=== PATIENT | male | born 1945 | race Caucasian/White ===

== ENCOUNTER 2021-09-21 11:55 | Emergency (ER) | payer OTHER, SELFPAY ==
[2021-09-21 12:03] VITALS: BP 152/90; PULSE 83; RESP 23; TEMP 37.3; O2SAT 99
[2021-09-21 12:54] VITALS: RESP 14
[2021-09-21 12:58] LABS: Abs Immature Grans 0.01 10^3/uL (0.0-0.06); Absolute Basophil Count 0.04 10^3/uL (0.0-0.2); Absolute Lymphocyte Count 1.12 10^3/uL (1.2-3.4); Absolute Monocyte Count 0.52 10^3/uL (0.1-0.8); Absolute Neutrophil Count 2.86 10^3/uL (1.2-6.7); Basophils % 0.9; HCT 21.2 % (40.0-50.0); Immature Grans % 0.2; Lymphocytes % 24.6; MCH 21.9 pg (27.0-33.0); MCHC 29.7 % (32.0-36.0); MCV 74 fL (80-95); MPV 10.1 fL (8.0-11.0); Monocytes % 11.4; Neutrophils % 62.9; Platelet Count 295 10^3/uL (130-400); RBC 2.88 10^6/uL (4.36-5.78); RDW 19.9 % (11.8-14.1); RDW-SD 52.7 fL; WBC 4.55 10^3/uL (4.4-10.8)
[2021-09-21 13:00] LABS: HGB 6.3 g/dL (13.5-17.5)
[2021-09-21 13:10] LABS: ALT 10 U/L (16-63); AST 11 U/L (15-37); Albumin 3.9 g/dL (3.4-5.0); Alkaline Phosphatase 72 U/L (46-116); Anion Gap 10.4 mmol/L (3-11); BUN 32 mg/dL (7-18); Bilirubin, Total 0.5 mg/dL (0.2-1.0); CO2 25.6 mmol/L (21.0-32.0); CREATININE 1.3 mg/dL (0.70-1.30); Calcium 9.2 mg/dL (8.5-10.1); Chloride 104 mmol/L (98-107); Estimated GFR 53.82 (mL/min/1.73m2); Glucose 101 mg/dL (74-106); Lipase 192 U/L (73-393); Potassium 4.1 mmol/L (3.5-5.1); Sodium 140 mmol/L (136-145); Total Protein 7.7 g/dL (6.4-8.2)
[2021-09-21 13:13] LABS: Anisocytosis 1+; Diff Comment RBC Morph Reviewed; Hypochromasia 1+; Microcytosis 1+
[2021-09-21 13:14] LABS: Polychromasia Present
--- NOTE | 2021-09-21 13:21 | W.ED.GENAD ---
Discharge Plan Disposition Patient Disposition: HOME Condition: Stable Discharge Details Clinical Impression: Anemia Primary Care Provider: Jj Pat ED Provider: Jose Alberto Pyle Home Meds and New Rx's Prescriptions: No Action ciprofloxacin HCl [Cipro] 250 MG tablet 250 mg PO BID Qty: 18 0RF Discharge Instructions Instructions: Anemia (ED) Additional Instructions: At this time it is unclear why you have anemia, you have been given a unit of blood, and we discussed admission but you have declined. Please watch for new or worsening symptoms and return to the ER for any concerns. [facility] care provider on Thursday to discuss your ER visit, ongoing symptoms, and need for further outpatient work-up of your ongoing symptoms. Discharge Data Discharge Date/Time-TO BE ENTERED AT DEPARTURE: 09/21/21 16:38 Medical Decision Making 76-year-old gentleman, currently asymptomatic, had a routine blood work for tick bite evaluation couple of days ago, received a call from the [facility] last night stating his levels were low and to come to the ER for evaluation and transfusion. Given he was asymptomatic they stated that after his transfusion he could likely be followed up at the [facility] and they will be reaching out to him early in the week for outpatient evaluation. Patient would prefer to be discharged home if at all possible. He is agreeable to IV access, pending routine laboratory values and verbal consent for transfusion was obtained assuming his H&H are truly critically low. Clinically he appears well, nontoxic, hemodynamically stable. He appears to be compensating extremely well for his anemia. He denies easy bruising or bleeding or any history of anemia. He cannot recall his last colonoscopy. Laboratory values reveal a white blood cell count of 4.55 hemoglobin 6.3 hematocrit 21.2 platelet count 295. Electrolytes are unremarkable, creatinine 1.3 with a GFR of 53.82 lipase 192 TSH 2.78 O+ blood type. I was able to review her labs from 2015, patient did have anemia then as well, but I have no other labs to compare to. Likely acute on chronic anemia. Patient received 1 L of IV fluid and then 1 unit of packed red blood cells. He remains asymptomatic and hemodynamically stable. We once again discussed admission to help expedite his work-up regarding his anemia but he declines. He assures me he will return to the ER for new or worsening symptoms otherwise he will [facility]. Strict discharge and return precautions were provided. Patient understands, is agreeable to this plan, and has no additional questions or concerns upon discharge. This documentation was generated using [employer] ricardo plcation system, please disregard any oddities of phrase or misspellings. Medical Records Medical records reviewed: Yes I reviewed the patient's medical records. Lab Data Lab results reviewed: Yes I reviewed the patient's lab results. Labs: Laboratory Tests Range/Units 09/21/21 09/21/21 09/21/21 12:50 12:50 12:50 WBC (4.4-10.8) 10^3/uL 4.55 RBC (4.36-5.78) 10^6/uL 2.88 L Hgb (13.5-17.5) g/dL 6.3 L* Hct (40.0-50.0) % 21.2 L MCV (80-95) fL 74 L MCH (27.0-33.0) pg 21.9 L MCHC (32.0-36.0) % 29.7 L RDW (11.8-14.1) % 19.9 H Plt Count (130-400) 10^3/uL 295 MPV (8.0-11.0) fL 10.1 Immature Gran % 0.2 Neutrophils % 62.9 Lymphocytes % 24.6 Monocytes % 11.4 Eosinophils % 0.0 Basophils % 0.9 Nucleated RBC % (0.0-0.3) % 0.0 Absolute Neutrophils (1.2-6.7) 10^3/uL 2.86 Absolute Lymphocytes (1.2-3.4) 10^3/uL 1.12 L Absolute Monocytes (0.1-0.8) 10^3/uL 0.52 Absolute Eosinophils (0.0-0.7) 10^3/uL 0.00 Absolute Basophils (0.0-0.2) 10^3/uL 0.04 RBC Morphology See Below Polychromasia Present Hypochromasia 1+ Anisocytosis 1+ Microcytosis 1+ Sodium (136-145) mmol/L 140 Potassium (3.5-5.1) mmol/L 4.1 Chloride (98-107) mmol/L 104 Carbon Dioxide (21.0-32.0) mmol/L 25.6 Anion Gap (3-11) mmol/L 10.4 BUN (7-18) mg/dL 32 H Creatinine (0.70-1.30) mg/dL 1.3 Estimated GFR/1.73 m2 (mL/min/1.73m2) 53.82 Glucose (74-106) mg/dL 101 Calcium (8.5-10.1) mg/dL 9.2 Total Bilirubin (0.2-1.0) mg/dL 0.5 AST (15-37) U/L 11 L ALT (16-63) U/L 10 L Alkaline Phosphatase (46-116) U/L 72 Total Protein (6.4-8.2) g/dL 7.7 Albumin (3.4-5.0) g/dL 3.9 Lipase (73-393) U/L 192 Patient ABO/Rh O Positive Antibody Screen NEGATIVE Crossmatch See Detail HPI General Mode of arrival: ambulatory. Date/Time Provider Initiated Documentation: 09/21/21 11:56. Limitations to Documentation: no limitations. Information obtained by: patient. HPI Narrative: This is a 76-year-old gentleman, denies significant past medical history presented to the [facility] the [facility]. Patient states that he has not seen a primary care provider in the last couple of years. He does not typically like taking medications and prefers a more organic and holistic approach. He states that he had a couple recent tick bites which [facility] to have labs drawn. He was given a single dose of p.o. doxycycline. Subsequently he was called last night, told that his blood count was low and to go to the ER for evaluation, transfusion, and then he can be followed as an outpatient through the [facility]. Patient is currently asymptomatic. He denies recent illness or trauma. He denies headache, visual changes, weakness, neck pain, chest pain, shortness of breath, abdominal pain, nausea, vomiting, numbness, tingling, weakness. Patient states that he occasionally throughout the years he has seen bright red blood on the tissue paper after wiping but does not report any regular GI bleeding or any recent GI bleeding. Denies any black tarry stools. No known history of anemia. Patient states that he feels well, would prefer to avoid an admission, and is very comfortable being discharged and having this worked up as an outpatient. He admits that he is likely due for a colonoscopy. Related Data Home Medications Medication Instructions Recorded Confirmed ciprofloxacin HCl 250 mg tablet 250 mg PO BID ##18 01/17/15 (Cipro) Previous Rx's Medication Instructions Recorded ciprofloxacin HCl 250 mg tablet 250 mg PO BID ##18 01/17/15 (Cipro) Allergies Allergy/AdvReac Type Severity Reaction Status Date / Time No Known Allergies Allergy Unverified 01/17/15 18:32 General Stated Complaint: GenMedical MISSY: 3 Review of Systems Constitutional Constitutional: Denies fatigue, Denies fever(s), Denies headache(s) and Denies weakness Eyes Eyes: Denies change in vision ENT Ears, Nose, Mouth, and Throat: Denies headache(s) and Denies neck pain Cardiovascular Cardiovascular: Denies chest pain and Denies dyspnea Respiratory Respiratory: Denies dyspnea Gastrointestinal Gastrointestinal: Denies abdominal pain, Denies melena, Denies hematochezia, Denies constipation, Denies diarrhea, Denies nausea and Denies vomiting Musculoskeletal Musculoskeletal: Denies back pain, Denies neck pain, Denies numbness and Denies tingling Integumentary/Breasts Skin/Breast: Denies rash Neurologic Neurologic: Denies headache(s), Denies numbness, Denies tingling and Denies weakness Endocrine Endocrine: Denies fatigue Hematologic/Lymphatic Hematologic/Lymphatic: Denies easy bleeding and Denies easy bruising PFSH All Active Problems Anemia (Chronic) Social History Smoking/Tobacco Use Status: Never Smoking risk assessment performed?: Yes Drug use: Never Substance use type: does not use Exam Const General: cooperative, healthy appearing, comfortable and no acute distress Orientation: alert, awake and oriented x3 HENMT Head: normal to inspection, normocephalic and atraumatic Face and sinus: normal facial exam Mouth: moist mucous membranes Eyes General: appearance normal, both eyes and all related structures Conjunctivae: conjunctivae normal Neck Neck: normal visual inspection, full ROM, trachea midline, supple and nontender Resp Effort & Inspection: normal respiratory effort and able to speak in complete sentences Auscultation: clear to auscultation bilaterally Cardio Rate: regular rate Rhythm: regular rhythm GI Inspection: normal to inspection Palpation: soft, not firm, no guarding, no pulsatile masses and nontender Auscultation: normal bowel sounds Rectal Exam: visual inspection normal, normal sphincter tone and heme negative stool Back/Spine/Pelvis Back: No back tenderness Skin Rashes: no rashes Neuro General: patient alert, patient awake, patient oriented x3, moves all extremities and no focal motor deficits Cognition: normal cognition Speech: speech normal Gait: normal gait Motor: muscle tone normal throughout Sensory Exam: no sensory deficits noted Extrem General: normal to inspection, full ROM and capillary refill normal Psych Appearance: grossly normal Mental Status: mental status grossly normal Course Vital Signs Vital signs: Vital Signs Temperature 37.3 C 09/21/21 12:03 Pulse 83 09/21/21 12:03 Respiratory Rate 23 09/21/21 12:03 Blood Pressure 152/90 H 09/21/21 12:03 Pulse Oximetry 99 09/21/21 12:03 Temperature 37.3 C 09/21/21 12:03 Temperature Source Temporal Artery Scan 09/21/21 12:03 Pulse 83 09/21/21 12:03 Respiratory Rate 14 09/21/21 12:54 Respiratory Effort 09/21/21 12:54 Respiratory Depth Normal 09/21/21 12:54 Respiratory Pattern Normal 09/21/21 12:54 Blood Pressure 152/90 H 09/21/21 12:03 Blood Pressure Position Supine 09/21/21 12:03 Pulse Oximetry 99 09/21/21 12:03 Oxygen Delivery Method Room Air 09/21/21 12:03 Oxygen Flow Rate 0 09/21/21 12:03 Pain Level 0 09/21/21 12:03 Lab/Test Results Lab/Test Results: Laboratory Tests Range/Units 09/21/21 09/21/21 09/21/21 12:50 12:50 12:50 WBC (4.4-10.8) 10^3/uL 4.55 RBC (4.36-5.78) 10^6/uL 2.88 L Hgb (13.5-17.5) g/dL 6.3 L* Hct (40.0-50.0) % 21.2 L MCV (80-95) fL 74 L MCH (27.0-33.0) pg 21.9 L MCHC (32.0-36.0) % 29.7 L RDW (11.8-14.1) % 19.9 H Plt Count (130-400) 10^3/uL 295 MPV (8.0-11.0) fL 10.1 Immature Gran % 0.2 Neutrophils % 62.9 Lymphocytes % 24.6 Monocytes % 11.4 Eosinophils % 0.0 Basophils % 0.9 Nucleated RBC % (0.0-0.3) % 0.0 Absolute Neutrophils (1.2-6.7) 10^3/uL 2.86 Absolute Lymphocytes (1.2-3.4) 10^3/uL 1.12 L Absolute Monocytes (0.1-0.8) 10^3/uL 0.52 Absolute Eosinophils (0.0-0.7) 10^3/uL 0.00 Absolute Basophils (0.0-0.2) 10^3/uL 0.04 RBC Morphology See Below Polychromasia Present Hypochromasia 1+ Anisocytosis 1+ Microcytosis 1+ Sodium (136-145) mmol/L 140 Potassium (3.5-5.1) mmol/L 4.1 Chloride (98-107) mmol/L 104 Carbon Dioxide (21.0-32.0) mmol/L 25.6 Anion Gap (3-11) mmol/L 10.4 BUN (7-18) mg/dL 32 H Creatinine (0.70-1.30) mg/dL 1.3 Estimated GFR/1.73 m2 (mL/min/1.73m2) 53.82 Glucose (74-106) mg/dL 101 Calcium (8.5-10.1) mg/dL 9.2 Total Bilirubin (0.2-1.0) mg/dL 0.5 AST (15-37) U/L 11 L ALT (16-63) U/L 10 L Alkaline Phosphatase (46-116) U/L 72 Total Protein (6.4-8.2) g/dL 7.7 Albumin (3.4-5.0) g/dL 3.9 Lipase (73-393) U/L 192 Patient ABO/Rh O Positive Crossmatch See Detail
[2021-09-21 14:44] VITALS: PULSE 67; RESP 15; TEMP 36.9; O2SAT 98
[2021-09-21 14:48] VITALS: BP 116/69; PULSE 67; RESP 16; TEMP 37; O2SAT 98
[2021-09-21 14:59] VITALS: BP 136/72; PULSE 65; RESP 14; TEMP 37; O2SAT 99
[2021-09-21 15:29] VITALS: BP 129/67; PULSE 63; RESP 14; TEMP 37; O2SAT 99
== END 2021-09-21 16:38 | disposition home or self-care (01) ==
PROVIDERS: Emergency Provider Physician Assistant; PCP Internal Medicine
DX: D64.9 Anemia, unspecified (principal)
CPT/HCPCS: 36415; 36430; 80053; 83690; 86850; 86900; 86901; 86920; 99283; 99285; 85025; 99284; P9016

== ENCOUNTER → 2021-10-16 00:16 | Outpatient (CLI) | payer OTHER, SELFPAY ==
--- NOTE | 2021-10-16 15:55 | DI.US_ITS ---
APPROVED REPORT EXAM: Comprehensive 2D, Doppler, and color-flow Echocardiogram Patient Location: Out-Patient Bodywork Therapist: Virginia Zarate RDCS ([facility]) Indications: Pre op clearance, HTN Other Information Study Quality: Adequate Conclusion Normal left ventricular wall thickness and chamber size. Estimated ejection fraction is 55 to 60%. 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 3.76 cm Wall motion Left Ventricle The left ventricle is normal size. The left ventricular systolic function is normal. The left ventric ular ejection fraction is within the normal range. There is normal left ventricular wall thickness. T here is normal LV segmental wall motion. There is no ventricular septal defect visualized. LVEF is 55 -60%. Right Ventricle The right ventricle is normal size. The right ventricular systolic function is normal. Atria The left atrium size is normal. The right atrium size is normal. The interatrial septum is intact wit h no evidence for an atrial septal defect. Aortic Valve The aortic valve is normal in structure. Aortic valve is trileaflet. There is no aortic valvular sten osis. Mild aortic regurgitation. Mitral Valve The mitral valve is normal in structure. No evidence of mitral valve stenosis. Trace mitral regurgita tion. Tricuspid Valve The tricuspid valve is normal in structure. There is no tricuspid valve stenosis. Trace to mild tricu spid regurgitation. Unable to assess PA pressure. Pulmonic Valve The pulmonary valve is normal in structure. There is no pulmonic valvular stenosis. Trace pulmonic re gurgitation. Great Vessels The aortic root is normal in size. The ascending aorta is mildly dilated.3.76 cm Aortic arch is not w ell visualized. IVC is normal in size and collapses >50% with inspiration. Pericardium There is no pericardial effusion. 2D Dimensions IVSD d PLAX 1.13 cm M: 0.6-1.2 LV Vol A2C d MOD 104.1 mL LVPW d PLAX 1.13 cm M: 0.6 - 1.2 LV Vol A4C d MOD 112.5 mL LVID d PLAX 5.15 cm M: 4.2 - 5.8 LA vol/ BSA A2C s A-L 36.8 mL/m2 LVDs 3.70 cm M: 2.5 - 4.0 LA vol/ BSA A4C s A-L 20.0 mL/m2 Ao Root d 3.78 cm M: 3.1 - 3.7 LA Vol/ BSA Biplane s A-L 31.0 mL/m2 RA Area A4C 13.71 cm2 LA Area A4C s MOD 13.99 cm2 RA Vol/ BSA A4C s A-L 17.7 mL/m2 LA Area A2C s MOD 21.72 cm2 Ao Asc Diam d 3.76 cm M: 2.6 - 3.4 LV EF A4C MOD 54.1 % LV EF Teichholz 53.9 % LV EF A2C MOD 55.5 % LVEF (Palmer's) 53.74 % M: 52 - 72 LV EF Biplane MOD 53.7 % LV Volume 83.04 mL M: 62 - 150 SV 59.01 mL LV Volume Index 42.58 mL/m2 M: 34 - 74 SV Index 30.24 mL/m2 LV Vol Biplane MOD 109.8 mL FS 28.00 % M-Mode TAPSE 2.05 cm (M/F) >1.7 LV Diastology MV E' medial 0.092 (>0.07 m/s) E/A Ratio 0.8 LV E/e MED 6.90 (<14) MV E Vmax 0.63 (0.4-1.3 m/s) MV E' lateral 0.123 (>0.1 m/s) MV A Vmax 0.80 (0.4-1.3 m/s) LV E/e LAT 5.10 (<14) MV E/A Ratio 0.75 MV E/E' medial 6.92 MV E/E' lateral 5.14 Aortic Valve LVOT Area 3.65 cm2 AoV Area Vmax 2.89 cm2 LVOT Vmax 1.01 m/s AoV Area/ BSA (Vmax) 1.48 cm2/m2 LVOT Mean Nitin. 0.66 m/s SD Mean Nitin. 2.72 cm2 LVOT Peak Grad 4.1 mmHg SD Mean Nitin. Index 1.40 cm2/m2 LVOT Mean Grad 2.0 mmHg AR DT 1495 msec LVOT VTI 0.207 m AR PHT 434 msec LVOT Diam s 2.15 cm AoV Vmax 1.28 m/s Velocity Ratio 0.78 AoV Mean Nitin. 0.88 m/s AoV Peak Grad 6.5 mmHg LVOT SV 75.48 mL AoV Mean Grad 3.5 mmHg AoV VTI 0.248 m AoV Area VTI 3.04 cm2 AoV Area/ BSA (VTI) 1.56 cm/m2 Mitral Valve MV DT 318 (160-240 msec) MV PHT 92 msec MV Area PHT 2.39 cm2 MV VTI 0.284 m MV Area VTI 2.66 (4.0-6.0 cm2) Pulmonary Valve PV Vmax 1.25 (0.5-1.5 m/s) RVOT Peak Gr. 3.82 mmHg PV Peak Grad 6.2 mmHg RVOT Mean Gr. 1.55 mmHg PV Mean Grad 3.5 mmHg RVOT VTI 0.176 m PV VTI 0.254 m RVOT Vmax 0.98 m/s
== END ==
PROVIDERS: PCP Internal Medicine; Visit Provider Physical Therapy Assistant
DX: D64.9 Anemia, unspecified (principal); I10 Essential (primary) hypertension
CPT/HCPCS: 93306

== ENCOUNTER 2021-10-21 03:31 | Outpatient (CLI) | payer OTHER, SELFPAY ==
[2021-10-21 20:46] LABS: Source Nasal/Nares
[2021-10-22 06:07] LABS: COVID-19 PCR Negative (Negative)
== END 2021-10-21 03:32 | disposition home or self-care (01) ==
LOC: LBO 03:32 → LBN 20:17
PROVIDERS: PCP Internal Medicine; Visit Provider Surgery
DX: Z20.822 Contact with and (suspected) exposure to COVID-19 (principal); Z01.818 Encounter for other preprocedural examination
CPT/HCPCS: 87635

== ENCOUNTER 2021-10-24 10:11 | Day surgery (SDC) | payer OTHER, SELFPAY ==
[2021-10-24 10:31] VITALS: BP 119/70; PULSE 73; RESP 16; TEMP 36.7; O2SAT 99
[2021-10-24] MEDS: Lactated Ringers 1,000 ML 80 ML IV (11:09)
--- NOTE | 2021-10-24 11:18 | W.ANESPRE ---
General Info Date of Service Date Performed: 10/24/21 Height: 5 ft 9 in Weight: 76.1 kg Body Mass Index (BMI): 24.7 Surgical Procedure: Operation Date: 10/24/21 11:20 Proposed Procedure Side Surgeon p Colonoscopy/Gastroscopy Oleksandr Rivers MD Meds Allergies and Home Medications Allergies Allergy/AdvReac Type Severity Reaction Status Date / Time amlodipine Allergy Unknown UNKNOWN Verified 10/24/21 10:30 sulfamethoxazole Allergy Unknown UNKNOWN Verified 10/24/21 10:30 [From Sulfamethoxazole-Trimethoprim] trimethoprim Allergy Unknown Verified 10/24/21 10:30 [From Sulfamethoxazole-Trimethoprim] Home Medication Medication Instructions Recorded Unknown [No Known Home Meds] 09/30/21 Current Visit Medications: Current Medications Generic Name Dose Route Start Last Admin Trade Name Freq PRN Reason Stop Dose Admin Ringer's Solution 1,000 mls @ 80 mls/hr 10/24/21 06:00 10/24/21 11:09 IV 11/22/21 23:59 80 mls/hr INFUSION SANGEETHA Administration IV Miscellaneous Supplies 1 each 10/24/21 06:00 Iv Access IV 11/22/21 23:59 DIRECTED SANGEETHA Sodium Chloride 0 ml 10/24/21 06:00 Normal Saline Flush 10 Ml Syr IV 11/22/21 23:59 PRN PRN Sodium Chloride 0 ml 10/24/21 06:00 Normal Saline 10 Ml Vial IJ 11/22/21 23:59 DIRECTED PRN Sterile Water 0 ml 10/24/21 06:00 Water,Injection,Sterile 10 Ml Vial IJ 11/22/21 23:59 DIRECTED PRN PFSH Active Problems Active Problems: Problem Status Onset Code Essential hypertension I10 Rectal/anal hemorrhage K62.5 Skin lesion L98.9 Medical History Medical History Elevated PSA Hyperlipidemia Osteoarthritis, hip, bilateral Problem related to housing and economic circumstances Seborrheic dermatitis Septic arthritis Urinary retention Surgical History Surgical History Unilateral inguinal hernia with mesh per pt. Tobacco Smoking/Tobacco Use Status: Never Alcohol Alcohol Intake: current Alcohol intake frequency: a few times a month Alcohol type: wine Substance Use Substance use: Never Substance use type: does not use Vital Signs and Lab Results Vital Signs Most Recent Vital Signs in EMR: Most Recent Vital Signs Temp Pulse Resp BP Pulse Ox 36.7 C 73 16 119/70 99 10/24/21 10:31 10/24/21 10:31 10/24/21 10:31 10/24/21 10:31 10/24/21 10:31 Lab Results Blood Type / Crossmatch: No Data to Display Complete Blood Count: No Data to Display Complete Metabolic Panel: No Data to Display Liver Function Panel: No Data to Display Coagulation Panel: No Data to Display Cardiac Panel: No Data to Display Arterial Blood Gas: No Data to Display Venous Blood Gas: No Data to Display Pancreas Panel: No Data to Display Thyroid Panel: No Data to Display Infectious Disease: Coronavirus (COVID-19)(PCR) Negative (Negative) 10/21/21 15:00 Coronavirus 2019 Source Nasal/Nares 10/21/21 15:00 Blood Cultures: No Data to Display Toxicology Panel: No Data to Display Imaging and Studies Imaging and Studies Study information below may be from another EMR and interpreted by another provider. Please see original notes in EMR for more complete details. Echocardiogram Summary: Date of Exam: 10/16/21Sex: M Admission Date: 10/16/21 : 1945 Age: 76 APPROVED REPORT EXAM: Comprehensive 2D, Doppler, and color-flow Echocardiogram Patient Location: Out-Patient Flatwork Catcher: Virginia Zarate RDCS ([facility]) Indications: Pre op clearance, HTN Other Information Study Quality: Adequate Conclusion Normal left ventricular wall thickness and chamber size. Estimated ejection fraction is 55 to 60%. 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 3.76 cm Anesthesia Assessment and Plan Anesthesia History Personal History: No History of Anesthesia Complications Family History: No Family History of Anesthesia Complications Exercise Tolerance Exercise Tolerance: Metabolic Equivalents>4 Pertinent Negatives Pertinent Negatives: No Symptoms of GERD Cardiac & Pulmonary Exam Cardiac Exam: Normal S1/S2 Heart Sounds Pulmonary Exam: Clear Bilateral Breath Sounds Implantable Cardiac Device Does patient have a Pacemaker or an ICD?: No Airway Exam Known Difficult Airway: No Mallampati Class: 1 Mouth Opening: Normal (> 3cm) Thyromental Distance: Greater than 3 cm Neck Range of Motion: Full ROM Neck Circumference: Normal Teeth Condition: Normal Dentition ASA Classification ASA Score: ASA 2 Emergency Case?: No NPO Status NPO Status: NPO Clears >2 hours, Solids >8 hours Anesthesia Plan Resuscitation Status: Full Code Anesthesia Technique: General Anesthesia Airway Planned: Natural Airway Monitors Used: Standard Monitors
[2021-10-24 11:22] VITALS: BMI 24.7
--- NOTE | 2021-10-24 11:45 | STOM_PTH ---
PATIENT: Thong Cerna LOC: [facility] U#:[id number] AGE/SX: 76/M ROOM: RE10/24/[address]: Oleksandr Rivers MD : 1945 BED: DIS: 10/24/2021 SPEC #: [id number] RECD: 10/24/21 13:06 STATUS: YENI RE #: [id number] GIDEON: 10/24/21 11:[address]: Oleksandr Rivers DEPT: Surgical Specimen RECD BY: Marleny Lux ENTERED: 10/24/21 13:07 SP TYPE: STOMACH OTHR DR: ALEX DÍAZ Tissues: 1 - STOMACH BIOPSY Procedures: GROSS AND MICRO LEVEL 4 Comments: [id number]
[2021-10-24 12:30] VITALS: BP 123/79; PULSE 64; RESP 97; TEMP 36.6; O2SAT 97
--- NOTE | 2021-10-24 12:35 | W.ANESPOSTOP ---
Postoperative Evaluation Date, Time and Location Date Performed: 10/24/21 Time Performed: 12:35 Patient Location: Day Surgery Unit Vital Signs Most Recent Imported Vital Signs: Most Recent Vital Signs Temp Pulse Resp BP Pulse Ox 36.6 C 64 97 H 123/79 97 10/24/21 12:30 10/24/21 12:30 10/24/21 12:30 10/24/21 12:30 10/24/21 12:30 Pain Score Most Recent Pain Score: Most Recent Pain Score Pain Level 0 10/24/21 12:30 Assessment Mental Status: Arousable with meaningful communication Airway and Respiratory Function: Patent airway with normal (patient baseline) respiratory exam Cardiovascular Function: Hemodynamically Stable Hydration Status: Adequately Hydrated Nausea & Vomiting: No Nausea or Vomiting Pain: Pt. Denies Any Pain Peripheral Nerve Block: Patient did not receive a nerve block
--- NOTE | 2021-10-24 12:51 | PDOC.DSDIS_ITS ---
Discharge Plan Disposition Patient Disposition: HOME Condition: Good Discharge Details Reason For Visit: anemia Attending Provider: Oleksandr Rivers Primary Care Provider: ALEX DÍAZ Home Meds and New Rx's Prescriptions: No Action No Known Home Meds Discharge Instructions Instructions: Diverticulosis (GEN), Diverticulitis Diet (GEN), Colonoscopy (DC), Upper Endoscopy (DC) Additional Instructions: 1. If tolerated, consume a soft, low fiber diet for 1-2 days. [address] not drive, drink alcohol, operate machinery, make critical decisions, or do activities that require coordination or balance for 24 hours. 3. Because air was put into your colon during the procedure, expelling air from your rectum (passing gas or farting) is normal. 4. You may not have a bowel movement for 1-3 days because of the colonoscopy prep. This is normal. 5. You may experience a sore throat for 24 to 48 hours. You may use throat lozenges or gargle with warm salt water to relieve the discomfort. 6. Because air was put into your stomach during the procedure, you may experience some belching. 7. Go directly to the emergency room if you notice any of the following: Develop chills (warm to touch), or if you have a thermometer and your temperature is above 101 Difficulty breathing or difficultly swallowing Persistent vomiting Severe abdominal pain, other than gas cramps Severe chest pain Black, tarry stools Any bleeding ? exceeding one tablespoon 8. Call your physician if the site where your intravenous was started becomes red, swollen, painful, and warm to touch. 9. Your physician has reviewed your pre-procedure medications. Please continue to take those medications as previously ordered. You will be given specific information/education regarding any changes to your medications before leaving. 10. My office will notify you of biopsy results, and you should schedule an appointment with a primary care doctor Referrals: Oleksandr Rivers MD [ [facility] STAFF PHYSICIAN] - Activity:: Activity as Tolerated Diet:: As Tolerated Discharge Orders Discharge Orders: Discharge Order (Routine); Ordered 10/24/21 Ordered By: Oleksandr Rivers DS: Diagnosis Discharge Diagnosis (1) Gastric polyp: Status: Acute Asessment and Plan: follow up biopsy results
--- NOTE | 2021-10-24 12:53 | NUR.NOTE ---
Left shoulder dressing changed. Raised foul smelling cauliflower tumor with small amount of active bleeding after being cleansed with saline soaked gauze. 4X4 Mepilex border dressing placed. Encouraged to follow up with PMD or surgeon. Nursing Note:
--- NOTE | 2021-10-24 12:54 | COLE_ITS ---
Colonoscopy Report Date of procedure: 10/24/21 Pre-op diagnosis general: anemia Post-op diagnosis procedure note: other (diverticulosis, internal hemorrhoids, gastric polyp) Procedure: Esophagogastroduodenoscopy and colonoscopy Surgeon: Oleksandr Rivers Anesthesia Type: General:No Airway Estimated blood loss (mL): 10 Pathology: other (Gastric polyp) Complications: None Disposition: same day Indications: Thong is a 76-year-old male with symptomatic anemia of unknown etiology. He was referred from the MD for consideration of colonoscopy and EGD to help delineate the source of his blood loss. He provided informed consent for those procedures. Prep: Miralax/Dulcolax Procedure Start Time: 11:40 Procedure End Time: 12:25 Retraction Time: 23 Findings: Gastric polyp, diverticulosis, internal hemorrhoids. Procedure Description: After the initiation of monitored anesthetic care, and with the assistance of a bite block, I advanced a standard gastroscope through the mouth past the hypopharynx and into the esophagus.? Under the direct vision of the scope, I advanced down the esophagus into the stomach.? Once I entered the stomach, I performed a brief inspection, followed by retroflexion towards the gastric cardia.? There were a number of diminutive gastric polyps. There was one prominent gastric polyp that was approximately 1 cm. This was around the body of the stomach. I was able to biopsy it in its entirety.? After that, I gently advanced the scope around the incisura angularis and examined the pylorus.? This also appeared normal.? Next, I advanced the scope through the pylorus into the duodenum.? The mucosa was pink and healthy appearing.? There were no abnor malities.? I was able to visualize bile draining into the duodenum through the ampulla Vater. ?Next, I began retracting the endoscope.? Again, I returned to the stomach which was carefully examined.? I then gently desufflated some of the stomach, and withdrew the endoscope into the distal esophagus. The esophagus appeared normal. ?Finally, I withdrew the scope along the length of the esophagus taking great care to examine the entirety of the mucosa.? I did not appreciate any other abnormalities. We then repositioned Thong into the left lateral decubitus position, and I began by performing an external anorectal exam.? Perineum and skin were normal, as was the anal verge.? There were internal and external hemorrhoids. Next, I advanced a colonoscope into the rectal vault.? I performed retroflexion.? I did see signs of pathologic internal hemorrhoids. They appeared inflamed.? Using insufflation, I then advanced the colonoscope beyond the rectal folds and into the sigmoid colon before advancing towards the cecum.? The quality of the prep was adequate.? The scope was noted to be in the cecum by identification of the ileocecal valve and appendiceal orifice.? I then began withdrawing the colonoscope using repeated irrigation as necessary for full evaluation of the colonic mucosa. ?There were a number of sigmoid diverticula. Once the scope was withdrawn to the level of the rectum, great care was taken to examine portions of the rectal folds.? Finally, the scope was withdrawn and the patient was brought to the same-day surgery recovery unit as the anesthetic wore off. ?The findings and instructions were shared with the patient prior to discharge.
[2021-10-24 12:57] VITALS: BP 129/79; PULSE 64; RESP 16; TEMP 36.5; O2SAT 97
== END 2021-10-24 15:24 | disposition home or self-care (01) ==
PROVIDERS: PCP Internal Medicine; Visit Provider Surgery
PROC: (CPT 43239; principal; 2021-10-24 11:15)
DX: D64.9 Anemia, unspecified (principal); K31.7 Polyp of stomach and duodenum; K57.30 Diverticulosis of large intestine without perforation or abscess without bleeding; K64.4 Residual hemorrhoidal skin tags; K64.8 Other hemorrhoids; E78.5 Hyperlipidemia, unspecified; R97.20 Elevated prostate specific antigen [PSA]; K40.90 Unilateral inguinal hernia, without obstruction or gangrene, not specified as recurrent
CPT/HCPCS: 43239; 45378; 88305

== ENCOUNTER 2021-11-22 06:14 | Day surgery (SDC) | payer OTHER, SELFPAY ==
[2021-11-20 10:23] LABS: Source Nasal/Nares
[2021-11-20 12:22] LABS: COVID-19 PCR Negative (Negative)
--- NOTE | 2021-11-22 06:19 | W.ANESPRE ---
General Info Date of Service Date Performed: 11/22/21 Height: 5 ft 9 in Weight: 73.936 kg Body Mass Index (BMI): 24.0 Surgical Procedure: Operation Date: 11/22/21 07:40 Proposed Procedure Side Surgeon p Excision of Skin Lesion Shoulder Left Oleksandr Rivers MD Meds Allergies and Home Medications Allergies Allergy/AdvReac Type Severity Reaction Status Date / Time amlodipine Allergy Unknown UNKNOWN Verified 11/22/21 06:23 sulfamethoxazole Allergy Unknown UNKNOWN Verified 11/22/21 06:23 [From Sulfamethoxazole-Trimethoprim] trimethoprim Allergy Unknown Verified 11/22/21 06:23 [From Sulfamethoxazole-Trimethoprim] Home Medication Medication Instructions Recorded cyanocobalamin (vitamin B-12) 1,000 mcg PO DAILY 11/07/21 1,000 mcg capsule ferrous sulfate 325 mg (65 mg 325 mg PO DAILY 11/07/21 iron) tablet oxycodone 5 mg tablet 5 mg PO Q12H PRN pain #6 tabs 11/22/21 Current Visit Medications: Current Medications Generic Name Dose Route Start Last Admin Trade Name Freq PRN Reason Stop Dose Admin Acetaminophen 1,000 mg 11/22/21 06:00 Acetaminophen 500 Mg Tab PO 12/21/21 23:59 PREOP SANGEETHA Celecoxib 200 mg 11/22/21 06:00 Celecoxib 200 Mg Cap PO 12/21/21 23:59 PREOP SANGEETHA Gabapentin 300 mg 11/22/21 06:00 Gabapentin 300 Mg Cap PO 12/21/21 23:59 PREOP SANGEETHA Ringer's Solution 1,000 mls @ 80 mls/hr 11/22/21 06:00 IV 12/21/21 23:59 INFUSION FOR[facility] Cefazolin Sodium/Dextrose 2 gm in 50 mls @ 100 mls/hr 11/22/21 06:00 Ancef Duplex IVPB 12/21/21 23:59 PREOP [facility] IV Miscellaneous Supplies 1 each 11/22/21 06:00 Iv Access IV 12/21/21 23:59 DIRECTED SANGEETHA Sodium Chloride 0 ml 11/22/21 06:00 Normal Saline Flush 10 Ml Syr IV 12/21/21 23:59 PRN PRN Sodium Chloride 0 ml 11/22/21 06:00 Normal Saline 10 Ml Vial IJ 12/21/21 23:59 DIRECTED PRN Sterile Water 0 ml 11/22/21 06:00 Water,Injection,Sterile 10 Ml Vial IJ 12/21/21 23:59 DIRECTED PRN PFSH Active Problems Active Problems: Problem Status Onset Code Bacteremia R78.81 Mass of left upper extremity R22.32 Normal colonoscopy Gastric polyp K31.7 Essential hypertension I10 Rectal/anal hemorrhage K62.5 Skin lesion L98.9 Medical History Medical History DVT (deep venous thrombosis) Elevated PSA Hyperlipidemia Hypertension Osteoarthritis, hip, bilateral Problem related to housing and economic circumstances Seborrheic dermatitis Septic arthritis Urinary retention Surgical History Surgical History History of colonoscopy (~09/2021) History of esophagogastroduodenoscopy (EGD) (~09/2021) Unilateral inguinal hernia with mesh per pt. Tobacco Smoking/Tobacco Use Status: Never Alcohol Alcohol Intake: current Alcohol intake frequency: a few times a month Alcohol type: wine Substance Use Substance use: Never Substance use type: does not use Vital Signs and Lab Results Lab Results Result Diagrams: 11/22/21 06:42 Blood Type / Crossmatch: No Data to Display Complete Blood Count: Hemoglobin 11.0 g/dL (13.5-17.5) L 11/22/21 06:42 Hematocrit 33.6 % (40.0-50.0) L 11/22/21 06:42 Complete Metabolic Panel: No Data to Display Liver Function Panel: No Data to Display Coagulation Panel: No Data to Display Cardiac Panel: No Data to Display Arterial Blood Gas: No Data to Display Venous Blood Gas: No Data to Display Pancreas Panel: No Data to Display Thyroid Panel: No Data to Display Infectious Disease: Coronavirus (COVID-19)(PCR) Negative (Negative) 11/20/21 10:00 Coronavirus 2019 Source Nasal/Nares 11/20/21 10:00 Blood Cultures: No Data to Display Toxicology Panel: No Data to Display Imaging and Studies Imaging and Studies Study information below may be from another EMR and interpreted by another provider. Please see original notes in EMR for more complete details. Echocardiogram Summary: 10/16/21: Conclusion Normal left ventricular wall thickness and chamber size. Estimated ejection fraction is 55 to 60%. 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 3.76 cm Anesthesia Assessment and Plan Anesthesia History Personal History: No History of Anesthesia Complications Family History: No Family History of Anesthesia Complications Exercise Tolerance Exercise Tolerance: Metabolic Equivalents>4 Cardiac & Pulmonary Exam Cardiac Exam: Normal S1/S2 Heart Sounds Pulmonary Exam: Clear Bilateral Breath Sounds Implantable Cardiac Device Does patient have a Pacemaker or an ICD?: No Airway Exam Known Difficult Airway: No Mallampati Class: 1 Mouth Opening: Normal (> 3cm) Thyromental Distance: Greater than 3 cm Neck Range of Motion: Full ROM Neck Circumference: Normal Teeth Condition: Normal Dentition ASA Classification ASA Score: ASA 2 Emergency Case?: No NPO Status NPO Status: NPO Clears >2 hours, Solids >8 hours Anesthesia Plan Resuscitation Status: Full Code Anesthesia Technique: General Anesthesia Airway Planned: Natural Airway Monitors Used: Standard Monitors Preoperative Comments:: 76 yo male for removal of shoulder lesion. Sig PMHx: HTN, ? DVT, never smoker, occ EtOH.
[2021-11-22 06:26] VITALS: BP 125/65; PULSE 64; RESP 16; TEMP 36.4; O2SAT 100
[2021-11-22] MEDS: Celecoxib 200 MG CAP PO (06:48)
[2021-11-22] MEDS: Gabapentin 300 MG CAP PO (06:48)
[2021-11-22] MEDS: Acetaminophen 500 MG TAB 1000 MG PO (06:48)
[2021-11-22 06:49] LABS: HCT 33.6 % (40.0-50.0)
[2021-11-22] MEDS: Lactated Ringers 1,000 ML 80 ML IV (06:49)
--- NOTE | 2021-11-22 07:04 | W.PM.DSUDISC ---
Discharge Plan Disposition Patient Disposition: HOME Condition: Good Discharge Details Reason For Visit: excision arm mass Attending Provider: Oleksandr Rivers Primary Care Provider: ALEX DÍAZ Home Meds and New Rx's Prescriptions: New oxycodone 5 mg tablet 5 mg PO Q12H PRN (Reason: pain) Qty: 6 0RF Rx Instructions: take one tablet by mouth as needed for severe pain. This medication is highly addictive and should be used with great caution Continued cyanocobalamin (vitamin B-12) 1,000 mcg capsule 1,000 mcg PO DAILY ferrous sulfate 325 mg (65 mg iron) tablet 325 mg PO DAILY Discharge Instructions Instructions: Excision of Skin Lesion (DC) Additional Instructions: 1. Resume all of your medications. 2. Okay to use tylenol and ibuprofen over the counter as needed. 3. Use oxycodone as needed for severe pain. 4. Leave bandage in place for 48 hours, then remove. 5. Shower with warm soapy water. Pat dry. Use a bandaid if needed to protect your clothing. 6. No soaking or tub baths until I see you in the office. 7. No heavy lifting until I see you in the office. 8.Call the office (or go directly to the emergency room after hours) if you notice any of the following: Develop chills (warm to touch), or if you have a thermometer and your temperature is above 101 Difficulty breathing or difficultly swallowing Persistent vomiting Any bleeding ? exceeding one tablespoon 6. Call your physician if the site where your intravenous was started becomes red, swollen, painful, and warm to touch. Referrals: Oleksandr Rivers MD [ [facility] STAFF PHYSICIAN] - Activity:: Activity as Tolerated Remove Dressings/Wound Care:: 48 hours Shower/Bathe:: 48 hours Diet:: As Tolerated Discharge Orders Discharge Orders: Discharge Order (Routine); Ordered 11/22/21 Ordered By: Oleksandr Rivers Discharge Data Discharge Comment: follow up with me 10-14 days DS: Diagnosis Discharge Diagnosis (1) Mass of left upper extremity: Status: Acute Asessment and Plan: The lesion is removed. My office will call you with the results of the testing and we can make a plan for what to do next
[2021-11-22 07:19] VITALS: BMI 24.0
[2021-11-22] MEDS: ceFAZolin 2 GM/50 ML BAG IVPB (07:29)
--- NOTE | 2021-11-22 08:00 | SKI_PTH ---
PATIENT: Thong Cerna LOC: [facility] U#:[id number] AGE/SX: 76/M ROOM: RE11/22/[address]: Oleksandr Rivers MD : 1945 BED: DIS: 11/22/2021 SPEC #: [id number] RECD: 11/22/21 11:19 STATUS: YENI RE #: [id number] GIDEON: 11/22/21 08:[address]: Oleksandr Rivers DEPT: Surgical Specimen RECD BY: Marleny Lux ENTERED: 11/22/21 11:22 SP TYPE: JOHN MICHAEL DR: ALEX DÍAZ Tissues: 1 - SKIN BIOPSY(SHAVE/PUNCH) Procedures: SKIN LEVEL 4 Comments: [id number]
[2021-11-22] MEDS: Bupivacaine 0.25% Pres-Free W/EPI 30 ML VIAL (08:10)
--- NOTE | 2021-11-22 08:23 | W.PM.OP ---
Date of service: 11/22/21 Time of Service: 08:23 Operative Note Operative Note DATE OF PROCEDURE: 11/22/21 PRE-OP DIAGNOSIS: left upper arm skin lesion POST-OP DIAGNOSIS: same PROCEDURE: excision of left upper arm skin lesion SURGEON: Oleksandr Rivers ANESTHESIA TYPE: MAC Refer to Anesthesia Record ESTIMATED BLOOD LOSS: 25 PATHOLOGY: other (skin lesion) COMPLICATIONS: None Patient was transported to: same day Patient's condition: stable Indications: With a that is the it is fungating, erythematous, and it bleeds on occasion. Findings: two stiches eldridge cephelad, one stich eldridge medial (towards chest) Procedure Description: I began by prepping and draping the area of the left deltopectoral groove. Next, using sterile technique, I administered local anesthetic with lidocaine to establish a generous field block. Next, I used a 15 blade scalpel to establish a football shaped incision with adequate margins around the central portion of the lesion. I dissected down through all layers of the skin using sharp technique. I then used Bovie electrocautery to dissect the deeper layers of the proximal and distal incision site. When I reached the level of the muscular fascia, I sharply dissected underneath the deep layer of the central portion of the lesion taking great care to encompass the hypodermis to optimize chances of clean margins. Once this dissection was complete, I sharply excised the specimen and passed it off for preservation. I used 2 stitches to alondra the proximal, or more cephalad portion of the excision site. I used 1 stitch to alondra the medial margin, for better size, the margin towards the chest. Next, I held some gentle pressure to assist with hemostasis. I then carefully examined the wound. It was clean, and there was no signs of bleeding. I did raise skin flaps on the medial and lateral aspects to help with skin closure. The final excision site was approximately 12 cm long by 6 cm wide. I approximated the deep dermal layers with interrupted Vicryl stitches. I gently irrigated the surgical site and approximated the skin with interrupted Prolene stitches.. I applied bandages, and was moved to the same-day surgery unit for recovery.
[2021-11-22 08:42] VITALS: BP 91/52; PULSE 47; RESP 16; TEMP 36; O2SAT 98
[2021-11-22 09:05] VITALS: BP 97/56; PULSE 51; RESP 16; TEMP 36.3; O2SAT 100
--- NOTE | 2021-11-22 09:10 | W.ANESPOSTOP ---
Postoperative Evaluation Date, Time and Location Date Performed: 11/22/21 Time Performed: 08:50 Patient Location: Day Surgery Unit Vital Signs Most Recent Imported Vital Signs: Most Recent Vital Signs Temp Pulse Resp BP Pulse Ox 36.3 C L 51 L 16 97/56 L 100 11/22/21 09:05 11/22/21 09:05 11/22/21 09:05 11/22/21 09:05 11/22/21 09:05 Pain Score Most Recent Pain Score: Most Recent Pain Score Pain Level 0 11/22/21 09:05 Assessment Mental Status: Awake (Alert & Oriented to Patient Baseline) Airway and Respiratory Function: Patent airway with normal (patient baseline) respiratory exam Cardiovascular Function: Hemodynamically Stable Hydration Status: Adequately Hydrated Nausea & Vomiting: No Nausea or Vomiting Pain: Pain is tolerable per patient Peripheral Nerve Block: Patient did not receive a nerve block
== END 2021-11-22 11:20 | disposition home or self-care (01) ==
PROVIDERS: PCP Internal Medicine; Visit Provider Surgery
PROC: (CPT 11606; principal; 2021-11-22 07:30)
DX: C44.619 Basal cell carcinoma of skin of left upper limb, including shoulder (principal); E78.5 Hyperlipidemia, unspecified; I10 Essential (primary) hypertension; M16.0 Bilateral primary osteoarthritis of hip
CPT/HCPCS: 11606; 12034; 87635; 85014; 85018; 88305; J0690; J2405

== ENCOUNTER 2021-11-22 20:43 | Observation (INO) | payer OTHER, SELFPAY ==
[2021-11-22] VITALS (28 sets, daily range): BP systolic 100–148; BP diastolic 58–93; PULSE 54–80; RESP 9–20; TEMP 36.5; O2SAT 99
--- NOTE | 2021-11-22 22:18 | ED.GENADUL_ITS ---
Discharge Plan Disposition Patient Disposition: [facility] INPATIENT Condition: Stable Discharge Details Clinical Impression: Postoperative anemia due to acute blood loss, Post surgical complication, H/O local excision of skin lesion Admit Date/Time: 11/22/21 22:35 Admit Provider: Oleksandr Rivers Attending Provider: Oleksandr Rivers Primary Care Provider: ALEX DÍAZ ED Provider: Marli Skinner Discharge Data Discharge Date/Time-TO BE ENTERED AT DEPARTURE: 11/23/21 00:20 Medical Decision Making 76-year-old male who was several hours status post a skin lesion excision from his left upper arm performed by Dr. Rivers earlier today presents for report of heavy amount of bleeding from the wound when moving his left arm this evening. Denies any other associated symptoms. Bleeding controlled prior to arrival to the ED. He is hemodynamically stable but reports bleeding approximately 5 cups over an hour. His incision site notes clots within the distal aspect of the wound but no active bleeding. There is no evidence of cellulitis or crepitus. Left upper extremity neurovascularly intact. Considering patient's age and report of a large amount of bleeding, will obtain screening labs and admit for observation. Case discussed with Dr. Rivers accepts patient for admission. No other recommendations given. Hemoglobin 9.7. Hemoglobin earlier this morning 11. Medical Records Medical records reviewed: Yes I reviewed the patient's medical records. Lab Data Lab results reviewed: Yes I reviewed the patient's lab results. Labs: Laboratory Tests Range/Units 11/22/21 11/22/21 11/22/21 22:37 22:37 22:58 WBC (4.4-10.8) 10^3/uL 10.37 RBC (4.36-5.78) 10^6/uL 3.42 L Hgb (13.5-17.5) g/dL 9.7 L Hct (40.0-50.0) % 30.4 L MCV (80-95) fL 89 MCH (27.0-33.0) pg 28.4 MCHC (32.0-36.0) % 31.9 L RDW (11.8-14.1) % 25.2 H Plt Count (130-400) 10^3/uL 213 MPV (8.0-11.0) fL 10.0 Immature Gran % 0.3 Neutrophils % 79.7 Lymphocytes % 12.1 Monocytes % 7.5 Eosinophils % 0.0 Basophils % 0.4 Nucleated RBC % (0.0-0.3) % 0.0 Absolute Neutrophils (1.2-6.7) 10^3/uL 8.27 H Absolute Lymphocytes (1.2-3.4) 10^3/uL 1.25 Absolute Monocytes (0.1-0.8) 10^3/uL 0.78 Absolute Eosinophils (0.0-0.7) 10^3/uL 0.00 Absolute Basophils (0.0-0.2) 10^3/uL 0.04 RBC Morphology See Below Anisocytosis 3+ Sodium (136-145) mmol/L 137 Potassium (3.5-5.1) mmol/L 4.1 Chloride (98-107) mmol/L 101 Carbon Dioxide (21.0-32.0) mmol/L 31.1 Anion Gap (3-11) mmol/L 4.9 BUN (7-18) mg/dL 25 H Creatinine (0.70-1.30) mg/dL 1.1 Estimated GFR/1.73 m2 (mL/min/1.73m2) >= 60.00 Glucose (74-106) mg/dL 101 Calcium (8.5-10.1) mg/dL 8.8 Total Bilirubin (0.2-1.0) mg/dL 0.5 AST (15-37) U/L 14 L ALT (16-63) U/L 14 L Alkaline Phosphatase (46-116) U/L 62 Total Protein (6.4-8.2) g/dL 7.2 Albumin (3.4-5.0) g/dL 3.6 COVID-19 Source Nasal/Nares HPI General Mode of arrival: EMS . Date/Time Provider Initiated Documentation: 11/22/21 20:46 . Limitations to Documentation: no limitations . Information obtained by: patient . HPI Narrative: Patient is a 76-year-old male who is several hours status post a skin lesion excision to his left upper arm this morning by Dr. Rivers who presents with report of a large amount of bleeding from his incision site at 7 PM tonight while reaching to grab something in the bathroom. Patient states he has been doing great all day today and while in the bathroom tonight he reached his left arm over in front of him and his left incision wound began bleeding. He states he bled approximately 5 cups of blood for approximately 1 hour. He denies any fever, chest pain, shortness of breath or dizziness. He states he is not taking any anticoagulation. He denies any injury to his arm today. Related Data Home Medications Medication Instructions Recorded Confirmed cyanocobalamin (vitamin B-12) 1,000 mcg PO DAILY 11/07/21 11/22/21 1,000 mcg capsule ferrous sulfate 325 mg (65 mg 325 mg PO DAILY 11/07/21 11/22/21 iron) tablet oxycodone 5 mg tablet 5 mg PO Q12H PRN pain #6 tabs 11/22/21 Previous Rx's Medication Instructions Recorded oxycodone 5 mg tablet 5 mg PO Q12H PRN pain #6 tabs 11/22/21 Allergies Allergy/AdvReac Type Severity Reaction Status Date / Time amlodipine Allergy Unknown UNKNOWN Verified 11/22/21 20:51 sulfamethoxazole Allergy Unknown UNKNOWN Verified 11/22/21 20:51 [From Sulfamethoxazole-Trimethoprim] trimethoprim Allergy Unknown Verified 11/22/21 20:51 [From Sulfamethoxazole-Trimethoprim] General Stated Complaint: Laceration MISSY: 3 Review of Systems All systems reviewed & are unremarkable except as noted in HPI and below Constitutional Constitutional: Denies chills, Denies excessive sweating, Denies fatigue, Denies fever(s), Denies weakness and Denies weight loss Eyes Eyes: Reports system reviewed and no additional complaints, except as documented and Denies blurry vision ENT Ears, Nose, Mouth, and Throat: Denies vertigo, Denies dizziness, Denies otalgia, Denies nasal congestion, Denies sore throat and Denies throat swelling Cardiovascular Cardiovascular: Denies chest pain, Denies syncope, Denies rapid heart rate and Denies dyspnea Respiratory Respiratory: Denies chest congestion, Denies cough, Denies pain on inspiration and Denies dyspnea Gastrointestinal Gastrointestinal: Denies abdominal pain, Denies diarrhea and Denies vomiting Genitourinary Genitourinary: Denies hematuria, Denies dysuria and Denies flank pain Musculoskeletal Musculoskeletal: Denies back pain and Denies joint swelling Integumentary/Breasts Skin/Breast: Denies lesions and Denies rash Neurologic Neurologic: Denies behavioral changes, Denies confusion, Denies vertigo, Denies dizziness, Denies syncope, Denies localized weakness and Denies weakness Psychiatric Psychiatric: Denies behavioral changes, Denies confusion and Denies depression Endocrine Endocrine: Denies excessive sweating and Denies fatigue Hematologic/Lymphatic Hematologic/Lymphatic: Denies easy bruising and Denies lymphadenopathy Allergic/Immunologic Allergic/Immunologic: Denies throat swelling PFSH All Active Problems Postoperative anemia due to acute blood loss (Acute) Post surgical complication (Acute) H/O local excision of skin lesion (Acute) Bacteremia (Acute) Mass of left upper extremity (Acute) [facility] 2inch diameter fungating bleeding mass upper left extremit y. Normal colonoscopy (Acute) Gastric polyp (Acute) Essential hypertension (Acute) Rectal/anal hemorrhage (Acute) Skin lesion (Acute) Medical History DVT (deep venous thrombosis) Elevated PSA Hyperlipidemia Hypertension Osteoarthritis, hip, bilateral Problem related to housing and economic circumstances Seborrheic dermatitis Septic arthritis Urinary retention Surgical History History of colonoscopy (~09/2021) History of esophagogastroduodenoscopy (EGD) (~09/2021) Unilateral inguinal hernia with mesh per pt. Social History Smoking/Tobacco Use Status: Never Smoking risk assessment performed?: Yes Alcohol Intake: current Alcohol Intake frequency: a few times a month Alcohol type: wine Drug use: Never Substance use type: does not use Current gender identity: male Do you feel safe at home: Yes Do you feel safe in your relationship?: Yes Additional Social history: lives alone Exam Const General: cooperative Orientation: alert, awake and oriented x3 HENMT Head: normal to inspection Ears: hearing grossly normal bilaterally and external ears normal General nose exam: external nose normal Face and sinus: normal facial exam Mouth: oral mucosae normal Eyes General: appearance normal, both eyes and all related structures Eyelids: eyelids normal EOM: EOM intact bilaterally Neck Neck: normal visual inspection Lymphatic: no lymphadenopathy noted Chest Chest: normal inspection of the chest Resp Effort & Inspection: normal respiratory effort and able to speak in complete sentences Auscultation: clear to auscultation bilaterally Cardio Rate: regular rate Rhythm: regular rhythm GI Inspection: normal to inspection Palpation: soft, not firm, no guarding, no hepatosplenomegaly, no masses and nontender Auscultation: normal bowel sounds Skin General skin exam: no rashes or lesions noted Neuro General: patient alert and patient awake Cognition: normal cognition Speech: speech normal Motor: muscle tone normal throughout Sensory Exam: no sensory deficits noted Extrem Shoulder/upper arm images: 1. Sutures noted in place to left upper arm surgical site. Clots noted within sutures on approximately 4cm of distal aspect of wound. No active bleeding noted. Skin around the wound is edematous and indurated but there is no crepitus or erythema. Motor/sensory grossly intact. Left radial pulse intact. Psych Appearance: grossly normal Mental Status: mental status grossly normal Speech and Movement: speech and movement normal Affect: normal affect Thought Process: normal Course Vital Signs Vital signs: Vital Signs Temperature 97.7 F 11/22/21 20:48 Pulse 58 L 11/22/21 20:48 Respiratory Rate 16 11/22/21 20:48 Blood Pressure 148/79 H 11/22/21 20:48 Pulse Oximetry 99 11/22/21 20:48 Temperature 97.7 F 11/22/21 20:48 Temperature Source Oral 11/22/21 20:48 Pulse 60 11/22/21 21:30 Respiratory Rate 16 11/22/21 20:48 Respiratory Effort Non-Labored 11/22/21 20:52 Blood Pressure 128/71 11/22/21 21:30 Blood Pressure Mean 85 11/22/21 21:30 Blood Pressure Position Supine 11/22/21 20:48 Pulse Oximetry 99 11/22/21 20:48 Oxygen Delivery Method Room Air 11/22/21 20:48 Oxygen Flow Rate 0 11/22/21 20:48 Pain Level 5 11/22/21 20:52
[2021-11-22 22:45] LABS: Abs Immature Grans 0.03 10^3/uL (0.0-0.06); Absolute Basophil Count 0.04 10^3/uL (0.0-0.2); Absolute Lymphocyte Count 1.25 10^3/uL (1.2-3.4); Absolute Monocyte Count 0.78 10^3/uL (0.1-0.8); Absolute Neutrophil Count 8.27 10^3/uL (1.2-6.7); Basophils % 0.4; HCT 30.4 % (40.0-50.0); HGB 9.7 g/dL (13.5-17.5); Immature Grans % 0.3; Lymphocytes % 12.1; MCH 28.4 pg (27.0-33.0); MCHC 31.9 % (32.0-36.0); MCV 89 fL (80-95); Monocytes % 7.5; Neutrophils % 79.7; Platelet Count 213 10^3/uL (130-400); RBC 3.42 10^6/uL (4.36-5.78); RDW 25.2 % (11.8-14.1); WBC 10.37 10^3/uL (4.4-10.8)
[2021-11-22 22:59] LABS: ALT 14 U/L (16-63); AST 14 U/L (15-37); Albumin 3.6 g/dL (3.4-5.0); Alkaline Phosphatase 62 U/L (46-116); Anion Gap 4.9 mmol/L (3-11); BUN 25 mg/dL (7-18); Bilirubin, Total 0.5 mg/dL (0.2-1.0); CO2 31.1 mmol/L (21.0-32.0); CREATININE 1.1 mg/dL (0.70-1.30); Calcium 8.8 mg/dL (8.5-10.1); Chloride 101 mmol/L (98-107); Glucose 101 mg/dL (74-106); Potassium 4.1 mmol/L (3.5-5.1); Sodium 137 mmol/L (136-145); Total Protein 7.2 g/dL (6.4-8.2)
[2021-11-22 22:59] LABS: Source Nasal/Nares
[2021-11-22 23:03] LABS: Anisocytosis 3+; Diff Comment RBC Morph Reviewed
[2021-11-23] VITALS: BP 112/63; PULSE 58; PULSE 59; RESP 13
[2021-11-23 00:01] VITALS: PULSE 59; RESP 10
[2021-11-23 00:05] VITALS: BP 112/63; PULSE 59; RESP 10; O2SAT 99
[2021-11-23 00:25] VITALS: BP 140/75; PULSE 59; RESP 18; TEMP 36.6; O2SAT 99
[2021-11-23 07:01] LABS: Abs Immature Grans 0.02 10^3/uL (0.0-0.06); Absolute Basophil Count 0.03 10^3/uL (0.0-0.2); Absolute Lymphocyte Count 1.26 10^3/uL (1.2-3.4); Absolute Monocyte Count 0.81 10^3/uL (0.1-0.8); Absolute Neutrophil Count 6.98 10^3/uL (1.2-6.7); Basophils % 0.3; HCT 30.9 % (40.0-50.0); HGB 9.8 g/dL (13.5-17.5); Immature Grans % 0.2; Lymphocytes % 13.8; MCH 28.4 pg (27.0-33.0); MCHC 31.7 % (32.0-36.0); MCV 90 fL (80-95); MPV 10.1 fL (8.0-11.0); Monocytes % 8.9; Neutrophils % 76.8; Platelet Count 225 10^3/uL (130-400); RBC 3.45 10^6/uL (4.36-5.78); RDW 24.7 % (11.8-14.1); RDW-SD 77.5 fL
[2021-11-23 07:30] VITALS: BP 104/58; PULSE 56; RESP 17; TEMP 36.7; O2SAT 100
[2021-11-23 07:31] LABS: Anisocytosis 2+; Diff Comment RBC Morph Reviewed
[2021-11-23 08:17] LABS: COVID-19 PCR Negative (Negative)
--- NOTE | 2021-11-23 10:10 | W.PM.HP.N ---
Date of service: 11/23/21 Time of Service: 10:10 Assessment and Plan Assessment and plan (1) Post surgical complication: Status: Acute Assessment and plan: We admitted Thong to the hospital overnight, I repeated the CBC this morning, which seems stable. History of Present Illness History of Present Illness Chief Complaint: bleeding Narrative: Thong is a 76-year-old male who underwent excision and linear closure of the fungating skin lesion yesterday. Last night, he developed acute bleeding from the surgical site. He called EMS, who brought him to the emergency department. The bleeding stopped with direct pressure. Review of Systems Constitutional Constitutional: Denies fatigue and Denies fever(s) ENT Ears, Nose, Mouth, and Throat: Denies dizziness Cardiovascular Cardiovascular: Denies chest pain, Denies syncope, Denies lightheadedness and Denies dyspnea Respiratory Respiratory: Denies chest congestion, Denies cough and Denies dyspnea Gastrointestinal Gastrointestinal: Reports system reviewed and no additional complaints, except as documented Genitourinary Genitourinary: Reports system reviewed and no additional complaints, except as documented Musculoskeletal Musculoskeletal: Denies myalgias and Denies muscle cramps Neurologic Neurologic: Denies dizziness and Denies syncope Psychiatric Psychiatric: Reports system reviewed and no additional complaints, except as documented Endocrine Endocrine: Denies fatigue Hematologic/Lymphatic Hematologic/Lymphatic: Denies easy bleeding and Denies easy bruising PFSH All Active Problems Postoperative anemia due to acute blood loss (Acute) Post surgical complication (Acute) H/O local excision of skin lesion (Acute) Bacteremia (Acute) Mass of left upper extremity (Acute) [facility] 2inch diameter fungating bleeding mass upper left extremity. Normal colonoscopy (Acute) Gastric polyp (Acute) Essential hypertension (Acute) Rectal/anal hemorrhage (Acute) Skin lesion (Acute) Medical History DVT (deep venous thrombosis) Elevated PSA Hyperlipidemia Hypertension Osteoarthritis, hip, bilateral Problem related to housing and economic circumstances Seborrheic dermatitis Septic arthritis Urinary retention Surgical History History of colonoscopy (~09/2021) History of esophagogastroduodenoscopy (EGD) (~09/2021) Unilateral inguinal hernia with mesh per pt. Social History Smoking/Tobacco Use Status: Never Smoking risk assessment performed?: Yes Alcohol Intake: current Alcohol Intake frequency: a few times a month Alcohol type: wine Drug use: Never Substance use type: does not use Current gender identity: male Do you feel safe at home: Yes Do you feel safe in your relationship?: Yes Additional Social history: lives alone Meds Allergies and Home Medications Allergies Allergy/AdvReac Type Severity Reaction Status Date / Time amlodipine Allergy Unknown UNKNOWN Verified 11/22/21 20:51 sulfamethoxazole Allergy Unknown UNKNOWN Verified 11/22/21 20:51 [From Sulfamethoxazole-Trimethoprim] trimethoprim Allergy Unknown Verified 11/22/21 20:51 [From Sulfamethoxazole-Trimethoprim] Home Medications Medication Instructions Recorded Confirmed Type cyanocobalamin (vitamin B-12) 1,000 mcg PO DAILY 11/07/21 11/22/21 History 1,000 mcg capsule ferrous sulfate 325 mg (65 mg 325 mg PO DAILY 11/07/21 11/22/21 History iron) tablet oxycodone 5 mg tablet 5 mg PO Q12H PRN pain #6 tabs 11/22/21 Rx Exam Const General: cooperative, healthy appearing and comfortable Orientation: awake and oriented x3 Eyes General: appearance normal, both eyes and all related structures Conjunctivae: conjunctivae normal Sclera: sclerae normal Neck Neck: lymphadenopathy noted and supple Chest Chest: normal inspection of the chest Resp Effort & Inspection: normal respiratory effort and able to speak in complete sentences Cardio Jugular venous pressure: no JVD Rate: regular rate GI Inspection: non-distended Palpation: soft, no guarding, no hernias and nontender Auscultation: normal bowel sounds Skin General skin exam: normal turgor Wounds: wounds noted Other: Surgical site is clean, and there is no erythema. It is swollen today, and there is some dried blood between the stitches in the middle of the incision. I debrided some of the hematoma. There is a little bit of ecchymosis in the distal biceps and triceps. Sensorimotor exam is normal distal to the elbow Neuro General: patient alert, patient awake and patient oriented x3 Cognition: normal cognition Extrem Right lower extremity: no edema Left lower extremity: no edema Results Labs Result diagrams: 11/23/21 06:40 11/22/21 22:37 Labs: Laboratory Results - last 24 hr 11/22/21 11/22/21 11/22/21 22:37 22:37 22:58 WBC 10.37 RBC 3.42 L Hgb 9.7 L Hct 30.4 L MCV 89 MCH 28.4 MCHC 31.9 L RDW 25.2 H Plt Count 213 MPV 10.0 Immature Gran % 0.3 Neutrophils % 79.7 Lymphocytes % 12.1 Monocytes % 7.5 Eosinophils % 0.0 Basophils % 0.4 Nucleated RBC % 0.0 Absolute Neutrophils 8.27 H Absolute Lymphocytes 1.25 Absolute Monocytes 0.78 Absolute Eosinophils 0.00 Absolute Basophils 0.04 RBC Morphology See Below Anisocytosis 3+ Sodium 137 Potassium 4.1 Chloride 101 Carbon Dioxide 31.1 Anion Gap 4.9 BUN 25 H Creatinine 1.1 Estimated GFR/1.73 m2 >= 60.00 Glucose 101 Calcium 8.8 Total Bilirubin 0.5 AST 14 L ALT 14 L Alkaline Phosphatase 62 Total Protein 7.2 Albumin 3.6 COVID-19 Source Nasal/Nares SARS-CoV-2 (PCR) Negative 11/23/21 06:40 WBC 9.10 RBC 3.45 L Hgb 9.8 L Hct 30.9 L MCV 90 MCH 28.4 MCHC 31.7 L RDW 24.7 H Plt Count 225 MPV 10.1 Immature Gran % 0.2 Neutrophils % 76.8 Lymphocytes % 13.8 Monocytes % 8.9 Eosinophils % 0.0 Basophils % 0.3 Nucleated RBC % 0.0 Absolute Neutrophils 6.98 H Absolute Lymphocytes 1.26 Absolute Monocytes 0.81 H Absolute Eosinophils 0.00 Absolute Basophils 0.03 RBC Morphology See Below Anisocytosis 2+ Sodium Potassium Chloride Carbon Dioxide Anion Gap BUN Creatinine Estimated GFR/1.73 m2 Glucose Calcium Total Bilirubin AST ALT Alkaline Phosphatase Total Protein Albumin COVID-19 Source SARS-CoV-2 (PCR) Last Vital Signs Temp 98.1 F 11/23/21 07:30 Pulse 56 L 11/23/21 07:30 Resp 17 11/23/21 07:30 BP 104/58 L 11/23/21 07:30 Pulse Ox 100 11/23/21 07:30
--- NOTE | 2021-11-23 10:15 | W.PM.DS.N ---
Date of service: 11/23/21 Time of Service: 10:16 DS: Diagnosis Discharge Diagnosis (1) Post surgical complication: Status: Acute Asessment and Plan: I do not see any discrete source of bleeding from the wound. Furthermore, the incision looks okay at this time. I cleaned it, and redressed it. I do not think there is anything to modify to reduce any more chance of bleeding. Discharge Plan Disposition Patient Disposition: HOME Condition: Stable Discharge Details Reason For Visit: JAMAR Admit Date/Time: 11/22/21 22:35 Admit Provider: Oleksandr Rivers Attending Provider: Oleksandr Rivers Primary Care Provider: ALEX D[facility] Hospital Course: Thong is a 76-year-old male who developed some postoperative bleeding from an excision of a skin mass yesterday. The wound was hemostatic overnight, and his CBC is reassuring. We discussed basic wound care techniques, and what to do if there is any recrudescence of his bleeding or other worrisome signs. Home Meds and New Rx's Prescriptions: No Action cyanocobalamin (vitamin B-12) 1,000 mcg capsule 1,000 mcg PO DAILY ferrous sulfate 325 mg (65 mg iron) tablet 325 mg PO DAILY oxycodone 5 mg tablet 5 mg PO Q12H PRN (Reason: pain) Qty: 6 0RF Rx Instructions: take one tablet by mouth as needed for severe pain. This medication is highly addictive and should be used with great caution Discharge Instructions Instructions: Wound Dehiscence (DC) Additional Instructions: 1. Leave the current dressing in place for 72 hours 2. After 72 hours, remove the bandage, and wash the wound with warm soapy water. 3. If there is any drainage or bleeding from the wound, you can reapply a large Band-Aid. If the wound is dry, it should be left open to air at that point. Referrals: Oleksandr Rivers MD [ [facility]] - Activity:: Activity as Tolerated Equipment/Supplies:: No Equipment Needed Diet:: As Tolerated Discharge Orders Discharge Orders: Discharge Order (Routine); Ordered 11/23/21 Ordered By: Oleksandr Rivers DS: Summary Time Spent with Patient providing and/or coordinating discharge services: Less than 30 minutes Status at Discharge Functional status at discharge: uses cane/walker Overall status at discharge: patient is back to baseline Mental Status: mental status grossly normal Speech and Movement: speech and movement normal Mood: congruent mood Affect: normal affect Exam Const General: cooperative, healthy appearing and comfortable Orientation: awake and oriented x3 Eyes General: appearance normal, both eyes and all related structures Conjunctivae: conjunctivae normal Sclera: sclerae normal Resp Effort & Inspection: normal respiratory effort and able to speak in complete sentences Cardio Jugular venous pressure: no JVD Rate: regular rate GI Inspection: non-distended Palpation: soft, no guarding, no hernias and nontender Auscultation: normal bowel sounds Skin General skin exam: normal turgor Wounds: wounds noted Other: The surgical site is clean, and redressed. There is no signs of active bleeding. There is a small amount of retained hematoma which I will leave in place to maintain tamponade in the wound. Neuro General: patient alert, patient awake and patient oriented x3 Cognition: normal cognition Extrem Right lower extremity: no edema Left lower extremity: no edema Psych Mental Status: mental status grossly normal Speech and Movement: speech and movement normal Mood: congruent mood Affect: normal affect DS: Data Vitals/I&O Vitals and I&O: Vital Signs Temperature 98.1 F 11/23/21 07:30 Temperature Source Tympanic 11/23/21 07:30 Pulse 56 L 11/23/21 07:30 Pulse Rhythm Regular 11/23/21 08:00 Pulse 59 L 11/23/21 00:01 Respiratory Rate 17 11/23/21 07:30 Respiratory Effort Non-Labored 11/23/21 08:00 Respiratory Depth Normal 11/23/21 08:00 Respiratory Pattern Normal 11/23/21 08:00 Blood Pressure 104/58 L 11/23/21 07:30 Blood Pressure Mean 74 11/23/21 00:00 Blood Pressure Position Supine 11/22/21 20:48 Pulse Oximetry 100 11/23/21 07:30 Oxygen Delivery Method Room Air 11/23/21 07:30 Oxygen Flow Rate 0 11/23/21 07:30 Pain Level 4 11/23/21 00:25 Intake & Output 11/22/21 11/22/21 11/23/21 11:59 23:59 11:59 Output Total 625 / 625 Balance -625 / -625 Weight 171 lb 9.6 oz 161 lb 6.054 oz Output: Urine 625 / 625 Other: Urine Color Yellow Urine Appearance Clear Urine Odor None Voiding Methods Urinal Data Completed and Pending Labs on day of discharge: Labs from last 24 hours 11/23/21 11/22/21 11/22/21 06:40 22:58 22:37 WBC 9.10 10.37 RBC 3.45 L 3.42 L Hgb 9.8 L 9.7 L Hct 30.9 L 30.4 L MCV 90 89 MCH 28.4 28.4 MCHC 31.7 L 31.9 L RDW 24.7 H 25.2 H Plt Count 225 213 MPV 10.1 10.0 Immature Gran % 0.2 0.3 Neutrophils % 76.8 79.7 Lymphocytes % 13.8 12.1 Monocytes % 8.9 7.5 Eosinophils % 0.0 0.0 Basophils % 0.3 0.4 Nucleated RBC % 0.0 0.0 Absolute Neutrophils 6.98 H 8.27 H Absolute Lymphocytes 1.26 1.25 Absolute Monocytes 0.81 H 0.78 Absolute Eosinophils 0.00 0.00 Absolute Basophils 0.03 0.04 RBC Morphology See Below See Below Anisocytosis 2+ 3+ Sodium Potassium Chloride Carbon Dioxide Anion Gap BUN Creatinine Estimated GFR/1.73 m2 Glucose Calcium Total Bilirubin AST ALT Alkaline Phosphatase Total Protein Albumin COVID-19 Source Nasal/Nares SARS-CoV-2 (PCR) Negative 11/22/21 22:37 WBC RBC Hgb Hct MCV MCH MCHC RDW Plt Count MPV Immature Gran % Neutrophils % Lymphocytes % Monocytes % Eosinophils % Basophils % Nucleated RBC % Absolute Neutrophils Absolute Lymphocytes Absolute Monocytes Absolute Eosinophils Absolute Basophils RBC Morphology Anisocytosis Sodium 137 Potassium 4.1 Chloride 101 Carbon Dioxide 31.1 Anion Gap 4.9 BUN 25 H Creatinine 1.1 Estimated GFR/1.73 m2 >= 60.00 Glucose 101 Calcium 8.8 Total Bilirubin 0.5 AST 14 L ALT 14 L Alkaline Phosphatase 62 Total Protein 7.2 Albumin 3.6 COVID-19 Source SARS-CoV-2 (PCR) PFSH All Active Problems Postoperative anemia due to acute blood loss (Acute) Post surgical complication (Acute) H/O local excision of skin lesion (Acute) Bacteremia (Acute) Mass of left upper extremity ([facility] 2inch diameter fungating bleeding mass upper left extremity. Normal colonoscopy (Acute) Gastric polyp (Acute) Essential hypertension (Acute) Rectal/anal hemorrhage (Acute) Skin lesion (Acute) Medical History DVT (deep venous thrombosis) Elevated PSA Hyperlipidemia Hypertension Osteoarthritis, hip, bilateral Problem related to housing and economic circumstances Seborrheic dermatitis Septic arthritis Urinary retention Surgical History History of colonoscopy (~09/2021) History of esophagogastroduodenoscopy (EGD) (~09/2021) Unilateral inguinal hernia with mesh per pt. Social History Smoking/Tobacco Use Status: Never Smoking risk assessment performed?: Yes Alcohol Intake: current Alcohol Intake frequency: a few times a month Alcohol type: wine Drug use: Never Substance use type: does not use Current gender identity: male Do you feel safe at home: Yes Do you feel safe in your relationship?: Yes Additional Social history: lives alone
== END 2021-11-23 12:24 | disposition home or self-care (01) ==
LOC: ER 23:10 → MS 11-23 00:34
PROVIDERS: Admitting Provider Surgery; Emergency Provider Physician Assistant; PCP Internal Medicine; Visit Provider Surgery
DX: L76.21 Postprocedural hemorrhage of skin and subcutaneous tissue following a dermatologic procedure (principal); D62 Acute posthemorrhagic anemia; I10 Essential (primary) hypertension; E78.5 Hyperlipidemia, unspecified; R33.9 Retention of urine, unspecified; Z20.822 Contact with and (suspected) exposure to COVID-19
CPT/HCPCS: 36415; 80053; 87635; 99285; 85025; G0378

== ENCOUNTER 2022-03-28 09:13 | Observation (INO) | payer OTHER, SELFPAY ==
[2022-03-28] VITALS (20 sets, daily range): BP systolic 104–148; BP diastolic 43–80; PULSE 55–78; RESP 12–22; TEMP 35.1–36.5; O2SAT 95–98; BMI 25.7
[2022-03-28 10:26] LABS: Source Nasal/Nares
[2022-03-28 10:58] LABS: COVID-19 PCR Negative (Negative)
[2022-03-28] MEDS: Lactated Ringers 1,000 ML 80 ML IV ×2 (11:18→16:46)
--- NOTE | 2022-03-28 11:20 | W.ANESPRE ---
General Info Date of Service Date Performed: 03/28/22 Height: 5 ft 9 in Weight: 78.9 kg Body Mass Index (BMI): 25.7 Surgical Procedure: Operation Date: 03/28/22 11:40 Proposed Procedure Side Surgeon p Herniorrhaphy Inguinal w/Mesh Left Oleksandr Rivers MD Meds Allergies and Home Medications Allergies Allergy/AdvReac Type Severity Reaction Status Date / Time amlodipine Allergy Unknown UNKNOWN Verified 03/19/22 10:16 sulfamethoxazole Allergy Unknown UNKNOWN Verified 03/19/22 10:16 [From Sulfamethoxazole-Trimethoprim] trimethoprim Allergy Unknown Verified 03/19/22 10:16 [From Sulfamethoxazole-Trimethoprim] Home Medication Medication Instructions Recorded ferrous sulfate 325 mg (65 mg 325 mg PO DAILY 11/07/21 iron) tablet krill 500 mg-omega 3 115 mg-dha 30 1 cap PO DAILY 12/11/21 mg-epa 64 [id number] capsule (Antarctic Krill Oil) cyanocobalamin (vitamin B-12) 100 100 mcg PO DAILY 03/10/22 mcg tablet collagen care 2 cap PO DAILY 03/20/22 collegen peptids 2 - 3 ea PO DAILY 03/20/22 tumeric 100 mg-alvarez 150 mg-olive 2 cap PO DAILY 03/20/22 50 mg-oreg 150 mg-caprylate capsule [id number] 75 2 tab PO DAILY 03/27/22 mg tablet multivitamin with minerals 1 tab PO DAILY 03/27/22 vitamin D3 1,250 mcg (50,000 PO DAILY 03/27/22 unit)-vitamin K2 200 mcg capsule Current Visit Medications: Current Medications Generic Name Dose Route Start Last Admin Trade Name Freq PRN Reason Stop Dose Admin Acetaminophen 1,000 mg 03/28/22 06:00 Acetaminophen 500 Mg Tab PO 04/26/22 23:59 PREOP SANGEETHA Celecoxib 200 mg 03/28/22 06:00 Celecoxib 200 Mg Cap PO 04/26/22 23:59 PREOP SANGEETHA Gabapentin 300 mg 03/28/22 06:00 Gabapentin 300 Mg Cap PO 04/26/22 23:59 PREOP SANGEETHA Heparin Sodium (Porcine) 5,000 units 03/28/22 06:00 Heparin 5,000 Units/Ml Vial SC 03/28/22 18:00 DIRECTED SANGEETHA Ringer's Solution 1,000 mls @ 80 mls/hr 03/28/22 06:00 03/28/22 11:18 IV 04/26/22 23:59 80 mls/hr INFUSION SANGEETHA Administration Cefazolin Sodium/Dextrose 2 gm in 50 mls @ 100 mls/hr 03/28/22 06:00 Ancef Duplex IVPB 04/26/22 23:59 PREOP SANGEETHA IV Miscellaneous Supplies 1 each 03/28/22 06:00 Iv Access IV 04/26/22 23:59 DIRECTED SANGEETHA Sodium Chloride 0 ml 03/28/22 06:00 Normal Saline Flush 10 Ml Syr IV 04/26/22 23:59 PRN PRN Sodium Chloride 0 ml 03/28/22 06:00 Normal Saline 10 Ml Vial IJ 04/26/22 23:59 DIRECTED PRN Sterile Water 0 ml 03/28/22 06:00 Water,Injection,Sterile 10 Ml Vial IJ 04/26/22 23:59 DIRECTED PRN PFSH Active Problems Active Problems: Problem Status Onset Code Essential hypertension I10 Rectal/anal hemorrhage K62.5 Skin lesion L98.9 Gastric polyp K31.7 Normal colonoscopy Mass of left upper extremity R22.32 Bacteremia R78.81 Post surgical complication T81.9XXA Hernia K46.9 Unilateral inguinal hernia without obstruction or gangrene K40.90 Basal cell carcinoma of upper extremity C44.611 Medical History Medical History DVT (deep venous thrombosis) Elevated PSA Hyperlipidemia Hypertension Osteoarthritis, hip, bilateral Problem related to housing and economic circumstances Seborrheic dermatitis Septic arthritis Urinary retention Medical History Comments:: Holistic medications; 4+ pitting edema to upper shins Surgical History Surgical History History of colonoscopy (~09/2021) History of esophagogastroduodenoscopy (EGD) (~09/2021) Unilateral inguinal hernia with mesh per pt. Right side per patient Tobacco Smoking/Tobacco Use Status: Never Alcohol Alcohol Intake: current Alcohol intake frequency: a few times a month Alcohol type: wine Substance Use Substance use: Never Substance use type: does not use Vital Signs and Lab Results Vital Signs Most Recent Vital Signs in EMR: Most Recent Vital Signs Temp Pulse Resp BP Pulse Ox 36.1 C L 72 18 111/64 97 03/28/22 11:12 03/28/22 11:12 03/28/22 11:12 03/28/22 11:12 03/28/22 11:12 Lab Results Blood Type / Crossmatch: No Data to Display Complete Blood Count: No Data to Display Complete Metabolic Panel: No Data to Display Liver Function Panel: No Data to Display Coagulation Panel: No Data to Display Cardiac Panel: No Data to Display Arterial Blood Gas: No Data to Display Venous Blood Gas: No Data to Display Pancreas Panel: No Data to Display Thyroid Panel: No Data to Display Infectious Disease: Coronavirus (COVID-19)(PCR) Negative (Negative) 03/28/22 10:10 Coronavirus 2019 Source Nasal/Nares 03/28/22 10:10 Blood Cultures: No Data to Display Toxicology Panel: No Data to Display Imaging and Studies Imaging and Studies Study information below may be from another EMR and interpreted by another provider. Please see original notes in EMR for more complete details. Echocardiogram Summary: 10/16/21: Conclusion Normal left ventricular wall thickness and chamber size. Estimated ejection fraction is 55 to 60%. 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 3.76 cm Anesthesia Assessment and Plan Anesthesia History Personal History: No History of Anesthesia Complications Family History: No Family History of Anesthesia Complications Exercise Tolerance Exercise Tolerance: Metabolic Equivalents>4 Cardiac & Pulmonary Exam Cardiac Exam: Normal S1/S2 Heart Sounds Pulmonary Exam: Clear Bilateral Breath Sounds Implantable Cardiac Device Does patient have a Pacemaker or an ICD?: No Airway Exam Known Difficult Airway: No Mallampati Class: 1 Mouth Opening: Normal (> 3cm) Thyromental Distance: Greater than 3 cm Neck Range of Motion: Full ROM Neck Circumference: Normal Teeth Condition: Normal Dentition ASA Classification ASA Score: ASA 3 Emergency Case?: No NPO Status NPO Status: NPO Clears >2 hours, Solids >8 hours Anesthesia Plan Resuscitation Status: Full Code Anesthesia Technique: General Anesthesia Airway Planned: LMA Monitors Used: Standard Monitors
[2022-03-28] MEDS: Acetaminophen 500 MG TAB 1000 MG PO (11:55)
[2022-03-28] MEDS: Gabapentin 300 MG CAP PO (11:55)
[2022-03-28] MEDS: Celecoxib 200 MG CAP PO (11:55)
[2022-03-28] MEDS: Heparin 5,000 UNITS/ML VIAL 5000 UNITS SC (11:55)
[2022-03-28] MEDS: ceFAZolin 2 GM/50 ML BAG IVPB (12:10)
[2022-03-28] MEDS: Bupivacaine 0.25% Pres-Free 30 ML VIAL (12:49)
--- NOTE | 2022-03-28 12:58 | ANES.NERVE_ITS ---
Nerve Block Single Injection Procedure Date and Time Date Performed: 03/28/22 Procedure Start: 12:27 Location Where Procedure Performed Procedure Location: Operating Room Procedure Stop: 12:35 Reason Performed: Postoperative Analgesia Requesting Provider: Oleksandr Rivers Timeout Performed Timeout Performed: Yes Monitoring Used ECG, Blood Pressure, SpO2 and See EMR for corresponding vital signs Sterility Sterility: Hand Hygiene, Surgical Cap, Surgical Mask, Sterile Gloves and Chlorh exidine Sedation Given During Procedure Sedation Given (Indicate Dose Given): No Sedation given Patient Mental Status Patient Mental Status: Performed under general anesthesia Nerve Block 1st Nerve Block: Laterality: Left Block Type: TAP Unilateral Needle / Catheter Used: 100mm SonoPlex II Local Anesthetic Bolus (Indicate Dose Given): Injected in 3-5ml increments after negative blood aspiration and Bupivacaine 0.25% Dose:: 20ml Additives (Indicate Dose Given): None Ultrasound: Sterile probe cover and gel used Ultrasound Image Saved?: Yes Nerve Stimulator: Not Used Paresthesia: None Procedure Tolerated: No Complications Procedure Outcome: Successful Performed By: Patricio Garber
--- NOTE | 2022-03-28 14:29 | W.PM.OP ---
Date of service: 03/28/22 Time of Service: 14:29 Operative Note Operative Note DATE OF PROCEDURE: 03/28/22 PRE-OP DIAGNOSIS: Left-sided inguinal scrotal hernia POST-OP DIAGNOSIS: same PROCEDURE: Open left inguinal herniorrhaphy with extra-large mesh plug and patch SURGEON: Oleksandr Rivers COMPLIANCE INVESTIGATOR: Ava Mendez ANESTHESIA TYPE: Local By Surgeon, General LMA/ETT and Other (TAP block) Refer to Anesthesia Record ESTIMATED BLOOD LOSS: 50 PATHOLOGY: none sent COMPLICATIONS: None Patient was transported to: PACU Patient's condition: stable Indications: Thong is a 76-year-old male with a left inguinal hernia. It is increased over the past several years, and now extends from the inguinal canal, well into the scrotum. In fact he had mass-effect from the hernia contributing to urinary difficulty. Findings: Massive indirect left inguinal hernia Procedure Description: I began by confirming the correct site with the patient. Next, after induction of general anesthesia, the anesthesia specialist performed an ultrasound-guided tap block. Next I inserted a urinary Vega catheter. During the initial insertion, there was poor return of urine. I did flush the catheter. I confirmed position with an ultrasound device, that showed a massively distended bladder that extended well up beyond the pubic symphysis. I deflated the Vega balloon, and adjusted it slightly, which resulted in immediate return of urine. Once again, I inflated the balloon. Approximately 1.6 L of urine drained immediately. The urine was straw-colored. Next, the surgical site was prepped and draped in the usual fashion. I did prep the scrotum, penis, and perineum into the field, as there was a massive scrotal component to the hernia.. I began by making an oblique incision over the region. I dissected down through the skin to the deep fascia. Next, I incised the fascia along the length of the inguinal canal to the external ring. Because of dense adhesions involving the hernia sac, and cord structures, it was quite difficult to identify the ilioinguinal nerve. I bluntly dissected the shelving edge of the inguinal ligament down towards the pubic tubercle. Here, I encircled all cord structures with a [place] drain. Next, I began dissecting the specific cord structures. Great care was taken to spare the vas deferens and the blood supply to the testicle. After extensive tedious dissection, I isolated the hernia sac from the other inguinal structures. I reduced it back to its normal anatomic position. This was a indirect inguinal hernia. I then used a extra-large mesh plug to obliterate the defect at the internal ring. I fixed in place with interrupted Prolene stitches. Next, I buttressed the posterior floor of the inguinal canal with a large mesh patch. I started by fixing it to the pubic tubercle. Next, I used Prolene sutures to affix it to the shelving edge of the inguinal ligament and the conjoined tendon. Laterally I tacked it to the transversalis fascia and reconstructed an internal ring without any strain on the cord structures. Once this was complete, I irrigated the surgical field. It appeared hemostatic. Because of the extent of the hernia down into the scrotum, and the potential space left behind, I did pack see some of the superficial fascia to the overlying skin tissues. Additionally, I left a round surgical drain in the dissection space. I took great care to isolate this from the underlying mesh by closing the anterior portion of the fascia to reconstruct the front wall of the inguinal canal. I did this with running Vicryl stitches. Once again, I irrigated the surgical field and inspected for hemostasis. Finally, I approximated the superficial fascia and the deep layers of the skin with absorbable suture. Skin was closed with absorbable sutures. The drain was affixed in place at a separate stab site. Bandages were applied, the patient was awakened and transferred to the recovery unit. Because of the size of this hernia, the dissection took quite longer than the typical left inguinal hernia
[2022-03-28] MEDS: Normal Saline 10 ML VIAL IJ (15:12)
[2022-03-28] MEDS: HYDROmorphone 2 MG/ML SYR IVP (15:12)
--- NOTE | 2022-03-28 15:48 | W.ANESPOSTOP ---
Postoperative Evaluation Date, Time and Location Date Performed: 03/28/22 Time Performed: 15:48 Patient Location: PACU Vital Signs Most Recent Imported Vital Signs: Most Recent Vital Signs Temp Pulse Resp BP Pulse Ox 36.5 C 58 L 15 104/48 L 95 03/28/22 15:18 03/28/22 15:18 03/28/22 15:18 03/28/22 15:18 03/28/22 15:18 Pain Score Most Recent Pain Score: Most Recent Pain Score Pain Level 3 03/28/22 15:40 Assessment Mental Status: Awake (Alert & Oriented to Patient Baseline) Airway and Respiratory Function: Patent airway with normal (patient baseline) respiratory exam Cardiovascular Function: Hemodynamically Stable Hydration Status: Adequately Hydrated Nausea & Vomiting: No Nausea or Vomiting Pain: Pain is tolerable per patient Peripheral Nerve Block: Regional nerve block not resolved at time of post operative discharge
--- NOTE | 2022-03-28 16:30 | PT.INNT ---
Date of service: 03/28/22 Time of Service: 16:30 PT Notes Patient politely requested to be mobilized out of bed tomorrow for PT. He stated that he was exhausted and wanted rest for tonight. On-call PT notified of plan as ordered by surgeon. Thank you for the opportunity to participate in the care of this patient. Symone Mcleod PT, DPT, CLT [facility] [place], [place]
[2022-03-28 20:39] LABS: Platelet Count 191 10^3/uL (130-400)
[2022-03-28] MEDS: Docusate Sodium 100 MG CAP PO (20:46)
[2022-03-28] MEDS: Normal Saline Flush 10 ML SYR IV (20:48)
[2022-03-28] MEDS: Enoxaparin 40 MG/0.4 ML SYR SC (20:55)
[2022-03-28] MEDS: Acetaminophen 325 MG TAB 650 MG PO (23:24)
[2022-03-29] MEDS: traMADol 50 MG TAB PO ×3 (04:51→20:25)
[2022-03-29] MEDS: Lactated Ringers 1,000 ML 80 ML IV (05:04)
[2022-03-29 05:06] VITALS: BP 115/64; PULSE 73; RESP 18; TEMP 36.3; O2SAT 98
[2022-03-29 07:29] VITALS: BP 105/63; PULSE 62; RESP 17; TEMP 36; O2SAT 98
--- NOTE | 2022-03-29 08:44 | PDOC.CMIN ---
- If Service Date Differs Date of service: 03/29/22 Time of Service: 08:44 Care Management Initial Assess REASON FOR HOSPITALIZATION:: Left Inguinal Hernia PAST MEDICAL HISTORY/PAST SURGICAL HISTORY:: Medical History . DVT (deep venous thrombosis). Elevated PSA. Hyperlipidemia. Hypertension. Osteoarthritis, hip, bilateral. Problem related to housing and economic circumstances. Seborrheic dermatitis. Septic arthritis. Urinary retention. Surgical History . History of colonoscopy (~09/2021). History of esophagogastroduodenoscopy (EGD) (~09/2021). Unilateral inguinal hernia. with mesh per pt. PREVIOUS FUNCTIONAL STATUS/SOCIAL/FAMILY SUPPORTS:: Thong resides alone, in [facility]. His son, Ori lives nearby and he has a sister, Aleah in [facility] though she has dementia. Thong has some great neighbors and friends who support him including his friend David Riley ([phone]) who is watching over his home during hosptialization. Thong is mostly independent at baseline, recently worked with [employer] for transportation support and is a [place]. CURRENT FUNCTIONAL STATUS:: Thong is sitting on the side of his bed, working with PT. PT recommending home PT upon discharge. Anticipate carmona catheter will be removed for voiding trial prior to discharge. HOME drain remains; possible VNA RN upon discharge as well. Has patient been provided with info about the portal/API?: Yes Did the patient sign up for the portal?: No CODE STATUS:: Full Code INSURANCE COVERAGE / FINANCIAL ISSUES:: [place] PRIMARY CARE PHYSICIAN:: Dr. Avelar at [facility] POTENTIAL DISCHARGE NEEDS:: Follow up appointments. PATIENT/FAMILY EDUCATION NEEDS:: Review of community based supports, discharge instructions, discuss self care needs upon discharge [facility] [employer]. ANTICIPATED BARRIERS TO DISCHARGE:: None identified. TRANSPORTATION:: RCT or with a friend. PLAN:: Thong continues to be closely monitored post surgically. Anticipate new home health orders for RN/PT/OT upon discharge. CM continues to follow.
--- NOTE | 2022-03-29 10:46 | W.PM.PROGNOT ---
Date of Service Date of service: 03/29/22 Time of Service: 10:46 Assessment and Plan Assessment and plan (1) Hernia: Status: Chronic Assessment and plan: Thong is doing quite well after massive left inguinal hernia repair with mesh. I will shut off his intravenous fluids today, and I like to see him ambulate a little bit more. I am not sure if his level of independence with regards to physical activity at this point. I do not get the impression that he would be able to get along well by himself at home just yet. I will plan to keep the Vega catheter, and most likely discharge him home with it. He appeared to have a significant amount of urinary retention, with nearly 1800 mL drained at the time of insertion in the operating room. Additionally, based on the ultrasound in the OR, I am suspicious that there may be a significantly enlarged prostate or bladder mass. Subjective Subjective Interval history since last seen: Thong had some pain through the night, but he says it is a little better controlled today. He was able to work with physical therapy a little bit this morning. He says he tolerated breakfast without any nausea or vomiting. He has not had a bowel movement yet. Exam GI Other: The surgical bandages are clean and dry. There is a small amount of serosanguineous drainage in the HOME bulb drain. He has an appropriate amount of tenderness. He is got some mild scrotal edema. Objective Last Vital Signs Temp 96.8 F L 03/29/22 07:29 Pulse 62 03/29/22 07:29 Resp 17 03/29/22 07:29 BP 105/63 03/29/22 07:29 Pulse Ox 98 03/29/22 07:29 Laboratory Results - last 24 hr 03/28/22 03/28/22 10:10 20:32 Plt Count 191 SARS-CoV-2 (PCR) Negative
--- NOTE | 2022-03-29 11:35 | IN_ITS ---
PT Notes Visit Reasons: Left Inguinal Hernia Inpatient Physical Therapy Evaluation Date: 03/29/22 Referring Doctor: Dr Oleksandr Rivers PT Orders: PT CONSULT: limited ability to ambulate Precautions: abdominal incision Patient Profile/Admitting Diagnosis: Patient admitted following left inguinal hernia repair. PT consult requested to assess mobility. PMHX: All Active Problems? Postoperative anemia due to acute blood loss (Acute) Post surgical complication (Acute) H/O local excision of skin lesion (Acute) Bacteremia (Acute) Mass of left upper extremity (Acute) [facility] 2inch diameter fungating bleeding mass upper left extremity.Normal colonoscopy (Acute) Gastric polyp (Acute) Essential hypertension (Acute) Rectal/anal hemorrhage (Acute) Skin lesion (Acute) Medical History? DVT (deep venous thrombosis) Elevated PSA Hyperlipidemia Hypertension Osteoarthritis, hip, bilateral Problem related to housing and economic circumstances Seborrheic dermatitis Septic arthritis Urinary retention Social History/Home Situation: Patient reports that he lives alone in a multi- level home. He uses a 4WW at baseline, and has one on each floor. Uses a scooter for community distances. Reports [address] [place] home, which he typically manages with his walker. Equipment Owned/DME: 4WW, motorized scooter Subjective: Thong reports feeling anxious about getting up out of bed. He has 8/10 pain with any movement in bed. Reports long-standing bilat hand pain, which he attributes to using his walker. Objective: General Observation: Resting in bed. IV in RUE, Vega catheter in place, drain present at incision site. Mental Status: A&Ox3. Provides deviating history. Pain: 8/10 pain in bed. Reports improvement in comfort after ambulating. ROM: Right Upper Extremity: Shoulder flexion 100*, with slow, cautious movement. Elbow and wrist motion WFL. 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 Left Upper Extremity: Shoulder flexion 90*. Elbow and wrist motion WFL. Partial automatic spinning lathe operator on the left, with limited flexion of 3rd and 4th digits. With overpressure, I'm able to passively close the hand, although with some discomfort. He demontrates full opening. Right Lower Extremity: WFL Left Lower Extremity: WFL Strength: Right Upper Extremity: Grossly 3-/5 Left Upper Extremity: Grossly 3-/5 Bilat Lower Extremity: No MMT applied due to post-op status. Quads 3/5 or greater. DF 3/5 or greater. Bed Mobility/Transfers: supine-sit: min A sit-stand: supervision stand-sit: supervision Gait: Ambulates 25'x2 with FWW, SBA, cues for equipment management and assistance for management of IV pole. Balance: Static Sitting: normal Dynamic Sitting: good Static Standing: good Dynamic Standing: fair Special Tests: Mobility Limitations Standardized Measure [facility] AM-PAC 6 clicks Basic Mobility Inpatient Short Form: Raw Score: 18 CMS Score: 47% impairment Informed Consent/Education: Patient instructed in purpose of PT consult and plan of care. Treatment ([id number]): Patient was instructed in log rolling techniques for safe transfer with reduced abdominal strain. Instructed in breathing techniques during transfer, and slow transfers to reduce symptoms of dizziness. Reviewed equipment management, and began early ambulation. He tolerates 25' x 2, with seated rest between. Assessment: Patient is a 76 year old male referred to physical therapy services with the diagnosis of limited ability to ambulate following left inguinal hernia repair. Patient presents with clinical signs and symptoms consistent with diagnosis, and complicated by baseline mobility impairments. He requires skilled PT intervention to maximize his mobility and activity tolerance, and allow for safe transition back to community. He will benefit from contineud PT upon discharge to continue addressing his chronic mobility issues. He currently demonstrates the following impairment level findings: 1. Decreased activity tolerance 2. decreased LE strength 3. decreased UE ROM and strength 4. chronic pain in hands, with limited automatic spinning lathe operator for WW management Impairments are contributing to the following functional limitations: 1. Decreased activity tolerance 2. decreased independence with bed mobility Patient is assessed as a Low [id number] complexity based on the following: History: Patient is a 76 year old male presenting day 1 s/p left inguinal hernia repair. He reports baseline mobility impairments, now impacted by recent surgery. He's demonstrating limitations in activity tolerance and independent bed mobility. Anticipate he will be able to safety return home once medically stable. He requires continued PT intervention during his acute care stay to maximize independence and activity tolerance, and would also recommend continued PT intervention (either HH or outpatient) once he returns home. Examination: functional limitations as noted above Presentation: evolving Decision Making: moderate complexity Goals: Goals X1 week 1. Supine-Sit : supervision 2. Sit-Supine : supervision 3. Sit-Stand : supervision 4. Stand-Sit : supervision 5. Bed-Chair : supervision with 4WW 6. Chair-Bed : supervision with 4WW 7. Gait : supervision with 4WW x 50' 8. Stairs : able to ascend and descend 2 stairs with bilat UE support to rails Plan of Care/Treatment Plan: 1-2x/day, 7 days/week x 1 week. Plan of care has been reviewed with the TRANSFER WORKER providing the service under Physical Therapy direction. Initiate Physical Therapy intervention for strengthening, bed mobility, transfers, gait, stairs, balance training, use of assistive device. DISCHARGE RECOMMENDATIONS: Home with services - outpatient PT vs HH TREATMENT CODE/TIME: 9:10 - 10:25 ([id number]) Valorie Wells, PT, DPT [facility]
[2022-03-29 15:13] VITALS: BP 108/65; PULSE 65; RESP 17; TEMP 36.9; O2SAT 98
[2022-03-29] MEDS: Docusate Sodium 100 MG CAP PO (20:23)
[2022-03-29] MEDS: Enoxaparin 40 MG/0.4 ML SYR SC (20:24)
[2022-03-29 23:31] VITALS: BP 128/73; PULSE 64; RESP 18; TEMP 36.8; O2SAT 97
[2022-03-30] MEDS: Acetaminophen 325 MG TAB 650 MG PO (03:17)
[2022-03-30 06:25] LABS: Platelet Count 177 10^3/uL (130-400)
[2022-03-30 07:41] VITALS: BP 109/61; PULSE 63; RESP 18; TEMP 36.6; O2SAT 96
--- NOTE | 2022-03-30 09:14 | PDOC.HHF2F_ITS ---
Home Health Referral Home Health Orders Clinical synopsis of why skilled professionals are needed: Ambulatory dysfunction after massive left inguinal hernia repair and new urinary catheter Medical diagnosis necessitation home health referral: Repair of massice incarcerated left inguinal hernia with new indwelling carmona urinary catheter Registered Nurse: Check all that apply Instruct on, and maintenance of, urinary device: Ordered Assess for exacerbation of medical condition, instruct patient/caregivers on signs and symptoms to report for early detection: Ordered Assess wound for signs and symptoms of infection, instruct on wound care and/or provide skilled wound care consisting of: cleansing and examination of large groin incision Other: Bulb suction surgical drain management Physical Therapist: Check all that apply Increase strength & endurance for safe mobility at home: Ordered Home safety evaluation and teaching/gait training including stair management (if applicable): Ordered Encounter Date and Reason: I certify that a FTF encounter for this patient was performed on March 30, 2022 and that such encounter was related to the primary reason the patient requires home health services. The encounter was conducted in the following manner: * By me as the certifying physician, SKEIN YARN DYER, PA or Certification And Authentication I certify that I composed the above information based on my clinical judgment relating to this patient's medical condition and, if applicable, clinical findings communicated to me by the NPP or inpatient physician who performed the FTF encounter. Name of Provider that will be monitoring home health services: Oleksandr Rivers
--- NOTE | 2022-03-30 09:48 | DSE_ITS ---
Date of service: 03/31/22 Time of Service: 11:46 DS: Diagnosis Discharge Diagnosis (1) Hernia: Status: Chronic (2) Essential hypertension: Status: Acute (3) BPH (benign prostatic hyperplasia): Status: Chronic (4) Urinary retention due to benign prostatic hyperplasia: Status: Acute (5) Urinary retention with incomplete bladder emptying: Status: Acute (6) Unilateral inguinal hernia without obstruction or gangrene: Status: Acute Discharge Plan Disposition Patient Disposition: Home W/Home Health Services Condition: Good Discharge Details Reason For Visit: Left Inguinal Hernia Admit Date/Time: 03/28/22 09:13 Admit Provider: Oleksandr Rivers Attending Provider: Oleksandr Rivers Primary Care Provider: ALEX DÍAZ Hospital Course Hospital Course: Patient underwent open right-sided inguinal hernia with mesh on 03/28. Please refer to the operative note for complete details of the surgery. Postop he is admitted to the hospital for pain management and wound care. Vega catheter had to be placed and maintained postoperatively. He was started on Flomax. He will follow-up with urology for his BPH and trial void. He has difficulty with transportation and requires assistance with caregiving. Case management was consulted and home health care ordered. Please see the H&H sheet. A pain and bowel regimen was discussed with the patient. And instituted. Patient was given instructions in wound care, activity, warning signs. He will need to call and schedule a follow-up appointment his clinic is closed today. Patient understood all instructions and discharged in stable and satisfactory condition. Home Meds and New Rx's Prescriptions: New Metamucil 3.4 gram/5.4 gram powder 1 tbsp PO DAILY Qty: 660 0RF Rx Instructions: mix into at least 8 oz of water or juice before administering tramadol 50 mg tablet 50 mg PO Q6H PRNQty: 14 0RF tamsulosin [Flomax] 0.4 mg capsule 0.4 mg PO QHS Qty: 14 0RF Rx Instructions: Further refills from urology clinic Continued mglqc-ur-0-mau-xjk-hfvmgbl-ast [Antarctic Krill Oil] [id number] mg capsule 1 cap PO DAILY ferrous sulfate 325 mg (65 mg iron) tablet 325 mg PO DAILY cyanocobalamin (vitamin B-12) 100 mcg tablet 100 mcg PO DAILY rpjkowk-ovjg-azwtk-oreg-capryl 100 mg-150 mg- 50 mg-150 mg capsule 2 cap PO DAILY collagen care 2 cap PO DAILY collegen peptids powder 2 - 3 ea PO DAILY multivitamin with minerals Tablet 1 tab PO DAILY C-Zn-K.ginseng-derrek hips-hrb62 75 mg Tablet 2 tab PO DAILY Label Comments: Organic Immune support/ Avenger vitamin D3-vitamin K2 1,250-200 mcg Capsule 1 cap PO DAILY Discharge Instructions Instructions: Urinary Retention in Men (GEN), Enlarged Prostate (BPH) (GEN) Additional Instructions: Keep an ice bag on the incision. 20 minutes on and 20 minutes off. Ice keeps the swelling down and swelling causes pain. Make sure you wrap the ice pack in a towel and don't apply directly to the skin. -No driving x1 week or of you are taking pain medications. -If you have jack or sutures in place, they will be removed at your clinic appointment in 7-10 days. -Do Not remove any steri tapes (white tapes) that cover the incision. If you have steri-tapes on your incision, -Follow-up in surgery clinic this week. You will need to call to make an appointment. [phone]. -regular diet -no straining to move bowels -pain meds are very constipating: if you do not move your bowels daily take a dose of OTC MiraLAX -Use small leg bag during the day and large leg bag with catheter during the night. Cleaned as instructed by nursing. Follow-up with Dr. Wallis as scheduled. -It is ok to shower. No bathe, soaking, swimming or hot tubs -Keep wound clean and dry. Wash incision with soap and water daily. Pat dry, don't rub. -Protein supplements daily. You may find that your appetite is smaller. Eat 3-6 small meals throughout the day. It is important to drink lots of water after surgery, 6-10 glasses a day. -If you were given an incentive spirometry (breathing sales associate key holder?), continue to do this 10x/hour while awake. -We do want you up walking, at least 5-6 times per day. This is very important to prevent pneumonia and blood clots. You can climb stairs, take them slowly. -No lifting over 5 pounds. This is very important to avoid developing a hernia in your incision, for the next 2 to 3 weeks. -You may find that you are very tired after surgery- this is normal. -please do not smoke for a minimum of 72 hours after surgery. -Follow-up with Dr. Wallis as scheduled. [phone] Pain Plan MEDICATIONS: Alternate Tylenol 1000mg by mouth every 8 hours and Ibuprofen 600mg every 6 hours. ?Make sure you take ibuprofen with food and not on an empty stomach. ?Take the Tylenol and ibuprofen continuously for the first 72hrs- not just when you have pain.? Use the tramadol for breakthrough pain.? Use ICE!?? Twenty minutes on, and then off, continuously for the first 72hours. If you are taking narcotic pain medication, follow the instructions on the label and do not drive. Pain medications can make you very constipated. Make sure you are moving your bowels daily. Take Metamucil daily while on narcotics. Take the Metamucil in the AM. If you do not have a bowel movement during the day, take a dose of lnay-nhc-ontkblj MiraLAX at nighttime. Stand Alone Forms: Nursing Discharge Form Referrals: ALEX DÍAZ [Primary Care Provider] - (Please call an make an Appointment Thursday to be seen in the next 7-14 days) Activity:: See above Equipment/Supplies:: Catheter leg bag Diet:: As Tolerated Discharge Orders Discharge Orders: Discharge Order (Routine); Ordered 03/31/22 Ordered By: Alta Jaimes Discharge Data Discharge Date/Time-TO BE ENTERED AT DEPARTURE: 03/31/22 14:11 DS: Summary Time Spent with Patient providing and/or coordinating discharge services: Greater than 30 minutes Status at Discharge Functional status at discharge: wheelchair bound Overall status at discharge: patient is progressing back to baseline Mental Status: mental status grossly normal Speech and Movement: speech and movement normal Mood: congruent mood Affect: normal affect Exam GI Inspection: incision Palpation: soft, no guarding, no hernias and tender Other: Hernia repair as healing nicely, and there are no signs of infection. The HOME drain is serosanguineous. Psych Mental Status: mental status grossly normal Speech and Movement: speech and movement normal Mood: congruent mood Affect: normal affect DS: Data Vitals/I&O Vitals and I&O: Vital Signs Temperature 97.9 F 03/30/22 07:41 Temperature Source Tympanic 03/30/22 07:41 Pulse 63 03/30/22 07:41 Pulse Rhythm Regular 03/30/22 07:45 Respiratory Rate 18 03/30/22 07:41 Respiratory Effort Non-Labored 03/30/22 07:45 Respiratory Depth Normal 03/30/22 07:45 Respiratory Pattern Normal 03/30/22 07:45 Blood Pressure 109/61 03/30/22 07:41 Pulse Oximetry 96 03/30/22 07:41 Respiratory End-tidal CO2 30 03/28/22 15:18 Oxygen Delivery Method Room Air 03/30/22 07:41 Oxygen Flow Rate 0 03/30/22 07:41 Pain Level 0 03/29/22 15:13 Intake & Output 03/29/22 03/29/22 03/30/22 11:59 23:59 11:59 Intake Total 1466.667 / 2076.667 610 / 2076.667 10 10 Output Total 1145 / 2190 1045 / 2190 650 / 650 Balance 321.667 / -113.333 -435 / -113.333 -640 / -640 Intake: IV 1466.667 / 1466.667 Oral 600 / 600 Injectate Left Lower Abdomen Output: Drainage 20 / 40 Left Lower Abdomen 40 20 / 40 Urine 1125 / 2150 1025 / 2150 650 / 650 Other: Urine Color Yellow Yellow Yellow Urine Appearance Clear Clear Clear Data Completed and Pending Labs on day of discharge: Labs from last 24 hours 03/30/22 06:10 Plt Count 177 PFSH All Active Problems (Updated 03/31/22 @ 13:27 by Alta Jaimes, ) Urinary retention with incomplete bladder emptying (Acute) Urinary retention due to benign prostatic hyperplasia (Acute) BPH (benign prostatic hyperplasia) (Chronic) Essential hypertension (Acute) Rectal/anal hemorrhage (Acute) Skin lesion (Acute) Gastric polyp (Acute) Normal colonoscopy (Acute) Mass of left upper extremity (Acute) [facility] 2inch diameter fungating bleeding mass upper left extremity. Bacteremia (Acute) Post surgical complication (Acute) Hernia (Chronic) Unilateral inguinal hernia without obstruction or gangrene (Acute) Basal cell carcinoma of upper extremity (Acute) Medical History DVT (deep venous thrombosis) Elevated PSA Hyperlipidemia Hypertension Osteoarthritis, hip, bilateral Problem related to housing and economic circumstances Seborrheic dermatitis Septic arthritis Urinary retention Surgical History History of colonoscopy (~09/2021) History of esophagogastroduodenoscopy (EGD) (~09/2021) Unilateral inguinal hernia with mesh per pt. Right side per patient Social History Smoking/Tobacco Use Status: Never Smoking risk assessment performed?: Yes Alcohol Intake: current Alcohol Intake frequency: a few times a month Alcohol type: wine Drug use: Never Substance use type: does not use Current gender identity: male Do you feel safe at home: Yes Do you feel safe in your relationship?: Yes Additional Social history: lives alone Time Spent with Patient Time Spent with Patient: <45 minutes Time was spent: referring, communicating with other health home care manager rn, counseling the patient and care coordination
--- NOTE | 2022-03-30 09:59 | W.PM.PROGNOT ---
Date of Service Date of service: 03/30/22 Time of Service: 09:59 Assessment and Plan Assessment and plan (1) Hernia: Status: Chronic Assessment and plan: He is doing well after massive left-sided inguinal hernia repair. He is ambulating a little bit with the assistance of the walker. I explained that he has several options to help manage his constipation while he is in the hospital. Those medications are available to him as needed. I explained that ambulation will also help with GI motility. He still has a lot of concerns about getting home, and his ability to function within the confines of his house with minimal support. I explained that we are in the process of arranging home health, and I know that he needs transportation to his house as well. I reiterated my concerns about the volume of his bladder at the time of the Vega insertion before the operation. I explained again that he will continue to keep the Vega catheter at home. He will need to follow-up with the urologist sooner rather than later. Subjective Subjective Interval history since last seen: Thong complains of pain in both of his hands overnight. He says this is typical to what he experiences at home. He is treating it with his own ointments. He also describes a little bit of constipation. He tells me he has not had a bowel movement yet. His surgical site pain is pretty well controlled. Exam GI Inspection: normal to inspection Palpation: soft Percussion: normal to percussion Auscultation: normal bowel sounds Other: The surgical bandages are clean and dry. The drain effluent is more serous today. Scrotal swelling is decreased a little bit. There is no ecchymosis Objective Last Vital Signs Temp 97.9 F 03/30/22 07:41 Pulse 63 03/30/22 07:41 Resp 18 03/30/22 07:41 BP 109/61 03/30/22 07:41 Pulse Ox 96 03/30/22 07:41 Laboratory Results - last 24 hr 03/30/22 06:10 Plt Count 177
--- NOTE | 2022-03-30 13:18 | PT.INTREAT ---
PT Notes Visit Reasons: Left Inguinal Hernia Inpatient Physical Therapy Treatment Note [facility] Date: 03/30/2022 PRECAUTIONS: Abdominal incision, falls and activity as tolerated. SUBJECTIVE: Stated he thinks he can walk around retana x 2 as his doctor asked. Indicated he is fine getting into and out of his home with his walker. Does not feel steps are going to be an issue. PAIN:Gets a little discomfort in surgical site with walking but not too bad. OBJECTIVE: BED MOBILITY/TRANSFERS Up in chair when I arrived Sit-stand: SBA Stand-sit: SBA GAIT Assistive Device: 4WW Weight bearing: full Assist: SBA Distance: 400ft x 2, with short 5 minutes seated break between. Did need to take multiple standing breaks to allow bilateral hands to rest due to ongoing pain with using walker. Asked if he could try wearing surgical glove to see if this might help decrease hand sensitivity with walker use. This was done today and patient indicated this was slightly beneficial. THEREX: We discussed doing activities such as ankle pumps, LAQs, bicep curls, shoulder flexion and shoulder abd/adduction while sitting in his chair to keep his arms and legs active. ASSESSMENT: Tolerated ambulation very well, despite past history of bilateral hand irritation with gripping walker. May want to get padded hand command post craftsman to help with this. PLAN: Continue with current POC with focus on improved functional mobility with ADLs. TREATMENT CODE/TIME: [id number], 10:45 to 11:10 (25')
[2022-03-30 15:21] VITALS: BP 139/72; PULSE 76; RESP 17; TEMP 37.2; O2SAT 97
[2022-03-30] MEDS: Docusate Sodium 100 MG CAP PO (19:44)
[2022-03-30 22:26] VITALS: BP 142/74; PULSE 70; RESP 16; TEMP 36.8; O2SAT 96
[2022-03-31 08:05] VITALS: BP 115/65; PULSE 65; RESP 16; TEMP 36.7; O2SAT 97
[2022-03-31] MEDS: Psyllium PKT 1 EACH PO (08:24)
[2022-03-31] MEDS: Docusate Sodium 100 MG CAP PO ×2 (08:24→12:57)
--- NOTE | 2022-03-31 10:14 | PT.INTREAT ---
PT Notes Visit Reasons: Left Inguinal Hernia Inpatient Physical Therapy Treatment Note [facility] Date: 03/31/22 PRECAUTIONS: SUBJECTIVE: Pt reports that yesterday after he walked his hands were very sore and to the point where it is difficult to use them today. OBJECTIVE: Sit-stand: SBA Stand-sit: SBA GAIT Assistive Device: 4WW Weight bearing: Full Assist: SBA Distance: Small loop THEREX: Standing HR x 10, seated LAQ x 20, shoulder horz abd x 15, shoulder flexion x 20, rowing x 20. ASSESSMENT: Pt was very hesitant to walk due to his hand discomfort but was agreeable to try it again to his tolerance. PLAN: Cont as per PT POC. TREATMENT CODE/TIME: 9:45-10:10
[2022-03-31] MEDS: Tamsulosin 0.4 MG CAPCR PO (12:26)
[2022-03-31] MEDS: Polyethylene Glycol 3350 17 GM PACKET PO (12:57)
--- NOTE | 2022-03-31 13:17 | PDOC.HHF2F ---
Home Health Referral Home Health Orders Clinical synopsis of why skilled professionals are needed: wound care (postOP)/ urinary catheter (new RE: BPH/urinary retention) medications Medical diagnosis necessitation home health referral: s/p inguinal hernia repair bph urinary retenyion OA htn Registered Nurse: Check all that apply Instruct on new or changed medication(s)/assess compliance: Ordered Instruct on, and maintenance of, urinary device: Ordered Assess for exacerbation of medical condition, instruct patient/caregivers on signs and symptoms to report for early detection: Ordered Other: Bulb suction surgical drain management Physical Therapist: Check all that apply Increase strength & endurance for safe mobility at home: Ordered To design/establish home maintenance program: Ordered Fall reduction therapy program for patient with history of frequent falls: Ordered Home safety evaluation and teaching/gait training including stair management (if applicable): Ordered Home Bound Status Requires the aid of supportive device (check all that apply): Walker Use of Special Transportation (Describe transportation and medical necessity): rct/ cannot drive Assistance of another person (Describe assistance and medical necessity): cannot lift over 5#'s Describe why leaving home would require a considerable and taxing effort: Safety Concerns: describe (falls/cant drive due to recent surgery) Encounter Date and Reason: I certify that a FTF encounter for this patient was performed on March 31, 2022 and that such encounter was related to the primary reason the patient requires home health services. The encounter was conducted in the following manner: By me as the certifying physician, ECONOMIC ADVISER, PA or By an inpatient physician, ECONOMIC ADVISER or PA during an inpatient stay who communicated findings to me, Certification And Authentication I certify that I composed the above information based on my clinical judgment relating to this patient's medical condition and, if applicable, clinical findings communicated to me by the NPP or inpatient physician who performed the FTF encounter. Name of Provider that will be monitoring home health services: Oleksandr Rivers
--- NOTE | 2022-04-01 09:55 | PT.INDS ---
Date of service: 04/01/22 Time of Service: 09:55 PT Notes Visit Reasons: Left Inguinal Hernia Physical Therapy Inpatient Discharge Summary Date: 04/01/2022 Dates of Service: 03/29/2022 through 03/31/2021 This is a clinical summary of care provided for the duration of dates listed above. No charge was made in the completion of this documentation. Referring Doctor:? Dr Oleksandr Rivers PT Orders: PT CONSULT: limited ability to ambulate Precautions: abdominal incision Patient Profile/Admitting Diagnosis:??Patient admitted following left inguinal hernia repair. PT consult requested to assess mobility. PMHX: All Active Problems? Postoperative anemia due to acute blood loss (Acute) Post surgical complication (Acute) H/O local excision of skin lesion (Acute) Bacteremia (Acute) Mass of left upper extremity (Acute[facility] 2inch diameter fungating bleeding mass upper left extremity.Normal colonoscopy (Acute) Gastric polyp (Acute) Essential hypertension (Acute) Rectal/anal hemorrhage (Acute) Skin lesion (Acute) Medical History? DVT (deep venous thrombosis) Elevated PSA Hyperlipidemia Hypertension Osteoarthritis, hip, bilateral Problem related to housing and economic circumstances Seborrheic dermatitis Septic arthritis Urinary retention Social History/Home Situation: Patient reports that he lives alone in a multi-level home. He uses a 4WW at baseline, and has one on each floor. Uses a scooter for community distances. Reports [address] home, which he typically manages with his walker. Equipment Owned/DME: 4WW, motorized scooter Subjective:? NT. See most recent BIAS CUTTING MACHINE OPERATOR VERTICAL notes. Objective:? General Observation: NT. See most recent BIAS CUTTING MACHINE OPERATOR VERTICAL notes. Mental Status: NT. See most recent BIAS CUTTING MACHINE OPERATOR VERTICAL notes. Pain: NT. See most recent BIAS CUTTING MACHINE OPERATOR VERTICAL notes. ROM: Right Upper Extremity: Shoulder flexion 100*, with slow, cautious movement. Elbow and wrist motion WFL. Able to form loose drop worker and fully open hand. Left Upper Extremity: Shoulder flexion 90*. Elbow and wrist motion WFL. Partial drop worker on the left, with limited flexion of 3rd and 4th digits. With overpressure, I'm able to passively close the hand, although with some discomfort. He demontrates full opening. Right Lower Extremity: WFL Left Lower Extremity: WFL Strength: Right Upper Extremity: Grossly 3-/5 Left Upper Extremity: Grossly 3-/5 Bilat Lower Extremity: No MMT applied due to post-op status. Quads 3/5 or greater. DF 3/5 or greater. Balance:? Static Sitting: normal Dynamic Sitting: good Static Standing: good Dynamic Standing: fair Bed Mobility/Transfers: Sit-stand: SBA? Stand-sit: SBA ? GAIT? Assistive Device: 4WW? Weight bearing: Full Assist: SBA? Distance:? Small loop? Special Tests: Mobility Limitations Standardized Measure [facility] AM-PAC 6 clicks Basic Mobility Inpatient Short Form: Raw Score: 18? CMS Score: 47% impairment ? ? ? Informed Consent/Education:? Patient instructed in purpose of PT consult and plan of care. Assessment:??Patient is a 76 year old male referred to physical therapy services with the diagnosis of limited ability to ambulate following left inguinal hernia repair.? Patient presents with clinical signs and symptoms consistent with diagnosis, and complicated by baseline mobility impairments. He requires skilled PT intervention to maximize his mobility and activity tolerance, and allow for safe transition back to community. He will benefit from contineud PT upon discharge to continue addressing his chronic mobility issues.? He currently demonstrates the following impairment level findings: 1. Decreased activity tolerance 2. decreased LE strength 3. decreased UE ROM and strength 4. chronic pain in hands, with limited drop worker for WW management Impairments are contributing to the following functional limitations: 1. Decreased activity tolerance 2. decreased independence with bed mobility Goals: Tell you protect yourself Goals X1 week 1. Supine-Sit : supervision 2. Sit-Supine : supervision 3. Sit-Stand : supervision 4. Stand-Sit : supervision 5. Bed-Chair : supervision with 4WW 6. Chair-Bed : supervision with 4WW 7. Gait : supervision with 4WW x 50' 8. Stairs : able to ascend and descend 2 stairs with bilat UE support to rails DISCHARGE RECOMMENDATIONS: Home with services - outpatient PT vs HH TREATMENT CODE/TIME: NC Thank you for the opportunity to participate in the care of this patient. Symone Mcleod PT, DPT, CLT [facility] [place], [place]
== END 2022-03-31 14:11 | disposition home health service (06) ==
LOC: MS 03-29 00:34 → PDS 03-29 07:07
PROVIDERS: Admitting Provider Surgery; PCP Internal Medicine; Visit Provider Surgery
PROC: (CPT 49505; principal; 2022-03-28 11:30)
DX: K40.90 Unilateral inguinal hernia, without obstruction or gangrene, not specified as recurrent (principal); I10 Essential (primary) hypertension; E78.5 Hyperlipidemia, unspecified; N40.1 Benign prostatic hyperplasia with lower urinary tract symptoms; R33.9 Retention of urine, unspecified; K59.00 Constipation, unspecified; M79.642 Pain in left hand; M79.641 Pain in right hand; Z20.822 Contact with and (suspected) exposure to COVID-19; Z79.899 Other long term (current) drug therapy
CPT/HCPCS: 49505; 36415; 76942; 87635; 96372; 96374; 97110; 97161; 97530; J1650; 85049; C1781; G0378; J0690; J1100; J1170; J1644; J2405; J2704

== ENCOUNTER 2022-04-29 20:24 | Inpatient (IN) | payer OTHER, SELFPAY ==
[2022-04-29 20:27] VITALS: BP 124/52; PULSE 96; RESP 16; TEMP 36.5; O2SAT 97
--- NOTE | 2022-04-29 20:55 | W.ED.GENAD ---
Discharge Plan Disposition Patient Disposition: Admit to [facility] Condition: Stable Discharge Details Clinical Impression: Acute UTI, History of urinary retention, Bandemia, Prostatic hypertrophy Primary Care Provider: ALEX DÍAZ ED Provider: Jhon Lazo Home Meds and New Rx's Prescriptions: No Action [id number]-wxt-blsiemu-ast [Antarctic Krill Oil] [id number] mg capsule 1 cap PO DAILY ferrous sulfate 325 mg (65 mg iron) tablet 325 mg PO DAILY cyanocobalamin (vitamin B-12) 100 mcg tablet 100 mcg PO DAILY hqvzwhd-tijx-nfhxg-oreg-capryl 100 mg-150 mg- 50 mg-150 mg capsule 2 cap PO DAILY collagen care 2 cap PO DAILY collegen peptids powder 2 - 3 ea PO DAILY multivitamin with minerals Tablet 1 tab PO DAILY C-Zn-K.ginseng-derrek hips-hrb62 75 mg Tablet 2 tab PO DAILY Label Comments: Organic Immune support/ Avenger vitamin D3-vitamin K2 1,250-200 mcg Capsule 1 cap PO DAILY Metamucil 3.4 gram/5.4 gram powder 1 tbsp PO DAILY Qty: 660 0RF Rx Instructions: mix into at least 8 oz of water or juice before administering tamsulosin [Flomax] 0.4 mg capsule 0.4 mg PO QHS Qty: 14 0RF Rx Instructions: Further refills from urology clinic Medical Decision Making 76-year-old male with a past medical history of urinary retention, recent left inguinal hernia surgery, lives at home, who presents today via EMS for evaluation. Patient is a challenging historian, and is unable to provide specifics, or significant clear avoidance as to why he is here. Of historical note the patient had left inguinal surgery that was repaired by Dr. Jaimes on 03/31/2022, he had a clinic visit on 04/04/2022 where he had been doing well. He did have urinary retention, and was scheduled for an outpatient clinic visit with Dr. Wallis whom he seen on 04/21/2022, Vega catheter was removed at that time, and patient had been doing well per that note. Patient came in today by [facility] after family called. Family arrived at the patient's house, he was notably confused, and hanging off of his walker unable to get up. Uncertain as to how long he had been there. Family states that for the last month the patient has been getting more more confused, and has been climaxing over the last 2 days. They state that he has had multiple complaints of NVR H, however his stories remain inconsistent. However they are clearly concerned that he is not able to be at home safely. Of social contacts, the patient is very concerned about medications and EMF. Patient himself is unable to give any specifics as to why he is here, what he wants, or what his goals are. He is ANO x3, however his thought processing and pathway for decision analysis appears to be notably convoluted and obscured. Exam demonstrates mild bedsore, no other focal abnormality. Incision site is clean dry and intact. In regards to the patient's confusion he is ANO x3, but certainly shows difficulty with his train of thought for decision-making and for some recall. I suspect that there is a component of Alzheimer's dementia, but also potentially a metabolic encephalopathy component potentially from mild infection or electrolyte disturbance. Family is now at bedside. They are very concerned that the patient is not safe to go home, as he does live alone. Clinically I would agree with this. Patient would likely be an important an appropriate candidate for rehab facility. We will evaluate for concerning etiology, monitor closely and reassess. 10:44 PM Laboratory work-up shows evidence of notably elevated white count at 24, notable left shift, bandemia with 14 bands, blood cultures will be drawn. Electrolytes stable, however BUN and creatinine notably both elevated especially compared to prior labs, urinalysis demonstrates notable infection. CT scan shows evidence of no acute process in the head per radiology, there is a notably large prostate, concerning for chronic bladder outlet obstruction with evidence of mild hydroureteronephrosis consistent with a chronic component. In spite of the patient's notable laboratory findings, he remains only stable, blood pressure stable. Afebrile. We did start broad-spectrum antibiotics vancomycin and Zosyn immediately when his elevated white count return. [facility], [facility], [facility] are [facility] secondary to bed capacity. Additionally the content administrator on-call stated that they will also be declining secondary to the lack of coverage for transportation costs. I did discuss this with the patient's family who are of a good state of mind their preferences for admission here. I also did discuss this with the patient, although he is confused, and he also states unequivocally that he would prefer to be here at [facility] because there will not be payment reimbursement for the travel cost. I did contact the hospitalist Dr. Chowdhury, and discussed the case with her. Hospitalist agrees with admission. She will place admission orders. I have extensively reviewed the treatment plan with the patient. I have addressed all patient concerns at this time. I have also discussed the plan with the admitting physician and they agree with the current assessment and plan and have agreed to assume responsibility for the patient. All parties demonstrate verbal understanding and agreement with our assessment and plan at this time. The documentation in this chart was dictated using [employer] dictation software. Please excuse any dictation errors. Of note I did review the plan with the patient, and he does not recall all of our earlier conversations. FINDINGS: Brain: Mild volume loss No hemorrhage. Moderate white matter disease No mass effect. Cerebral ventricles: No ventriculomegaly. Paranasal sinuses: Visualized sinuses are unremarkable. No fluid levels. Mastoid air cells: Visualized mastoid air cells are well aerated. Bones/joints: Unremarkable. No acute fracture. Soft tissues: Unremarkable. IMPRESSION: No acute intracranial abnormality. Thank you for allowing us to participate in the care of your patient. Dictated and Authenticated by: Kel Marquez MD 04/29/2022 9:51 PM Eastern Time ([place] & [place]) FINDINGS: Lungs: Unremarkable. No consolidation. No masses. Pleural spaces: Unremarkable. No pneumothorax. No pleural effusion. Heart: Unremarkable. No cardiomegaly. No pericardial effusion. Lymph nodes: Unremarkable. No enlarged lymph nodes. Vasculature: Unremarkable. No aortic aneurysm. Bones/joints: Unremarkable. No acute fracture. Soft tissues: Unremarkable. IMPRESSION: No acute findings. FINDINGS: Liver: Fatty infiltration. No mass. Gallbladder and bile ducts: Gallbladder contracted. No ductal dilation. Pancreas: Normal. No ductal dilation. Spleen: Normal. No splenomegaly. Adrenal glands: Normal. No mass. Kidneys and ureters: Moderate to severe dilatation of the left renal pelvis and left ureter. Moderate right hydroureteronephrosis. Right renal simple cyst. Stomach and bowel: Unremarkable. No obstruction. No mucosal thickening. Appendix: No evidence of appendicitis. Intraperitoneal space: Unremarkable. No free air. No significant fluid collection. Vasculature: Unremarkable. No abdominal aortic aneurysm. Lymph nodes: Unremarkable. No enlarged lymph nodes. Urinary bladder: Unremarkable as visualized. Reproductive: Severely enlarged prostate gland with a lobulated appearance. Polypoid component superiorly projecting posteriorly along the inferior margin of the bladder Bones/joints: Unremarkable. No acute fracture. Soft tissues: Unremarkable. IMPRESSION: Severely enlarged prostate gland and findings in keeping with presumed chronic bladder outlet obstruction. Left greater than right hydroureteronephrosis Thank you for allowing us to participate in the care of your patient. Dictated and Authenticated by: Kel Marquez MD 04/29/2022 10:04 PM Eastern Time ([place] & [place]) HPI General Date/Time Provider Initiated Documentation: 04/29/22 20:46. HPI Narrative: 76-year-old male with a past medical history of urinary retention, recent left inguinal hernia surgery, lives at home, who presents today via EMS for evaluation. Patient is a challenging historian, and is unable to provide specifics, or significant clear avoidance as to why he is here. Of historical note the patient had left inguinal surgery that was repaired by Dr. Jaimes on 03/31/2022, he had a clinic visit on 04/04/2022 where he had been doing well. He did have urinary retention, and was scheduled for an outpatient clinic visit with Dr. Wallis whom he seen on 04/21/2022, Vega catheter was removed at that time, and patient had been doing well per that note. Patient came in today by [facility] after family called. Family arrived at the patient's house, he was notably confused, and hanging off of his walker unable to get up. Uncertain as to how long he had been there. Family states that for the last month the patient has been getting more more confused, and has been climaxing over the last 2 days. They state that he has had multiple complaints of NVR H, however his stories remain inconsistent. However they are clearly concerned that he is not able to be at home safely. Of social contacts, the patient is very concerned about medications and EMF. Patient himself is unable to give any specifics as to why he is here, what he wants, or what his goals are. He is ANO x3, however his thought processing and pathway for decision analysis appears to be notably convoluted and obscured. Related Data Home Medications Medication Instructions Recorded Confirmed ferrous sulfate 325 mg (65 mg 325 mg PO DAILY 11/07/21 04/21/22 iron) tablet krill 500 mg-omega 3 115 mg-dha 30 1 cap PO DAILY 12/11/21 04/21/22 mg-epa 64 jf-fmxptgs-beric capsule (Antarctic Krill Oil) cyanocobalamin (vitamin B-12) 100 100 mcg PO DAILY 03/10/22 04/21/22 mcg tablet collagen care 2 cap PO DAILY 03/20/22 04/21/22 collegen peptids 2 - 3 ea PO DAILY 03/20/22 04/21/22 tumeric 100 mg-alvarez 150 mg-olive 2 cap PO DAILY 03/20/22 04/21/22 50 mg-oreg 150 mg-caprylate capsule C-Zn-K.ginseng-derrek hips-hrb62 75 2 tab PO DAILY 03/27/22 04/21/22 mg tablet multivitamin with minerals 1 tab PO DAILY 03/27/22 04/21/22 vitamin D3 1,250 mcg (50,000 1 cap PO DAILY 03/27/22 04/21/22 unit)-vitamin K2 200 mcg capsule psyllium husk 3.4 gram/5.4 gram 1 tbsp PO DAILY #660 grams 03/31/22 04/21/22 oral powder (Metamucil) tamsulosin 0.4 mg capsule (Flomax) 0.4 mg PO QHS #14 caps 03/31/22 04/21/22 Previous Rx's Medication Instructions Recorded psyllium husk 3.4 gram/5.4 gram 1 tbsp PO DAILY #660 grams 03/31/22 oral powder (Metamucil) tamsulosin 0.4 mg capsule (Flomax) 0.4 mg PO QHS #14 caps 03/31/22 Allergies Allergy/AdvReac Type Severity Reaction Status Date / Time amlodipine Allergy Unknown UNKNOWN Verified 04/21/22 15:02 sulfamethoxazole Allergy Unknown UNKNOWN Verified 04/21/22 15:02 [From Sulfamethoxazole-Trimethoprim] trimethoprim Allergy Unknown Verified 04/21/22 15:02 [From Sulfamethoxazole-Trimethoprim] General Stated Complaint: Abd Prob MISSY: 3 Review of Systems All systems reviewed & are unremarkable except as noted in HPI and below PFSH All Active Problems (Updated 04/29/22 @ 22:48 by Jhon Lazo DO) Acute UTI (Acute) History of urinary retention (Acute) Bandemia (Acute) Prostatic hypertrophy (Acute) Mass of urinary bladder determined by ultrasound (Acute) Urinary retention with incomplete bladder emptying (Acute) Urinary retention due to benign prostatic hyperplasia (Acute) BPH (benign prostatic hyperplasia) (Chronic) Essential hypertension (Acute) Rectal/anal hemorrhage (Acute) Skin lesion (Acute) Gastric polyp (Acute) Normal colonoscopy (Acute) Mass of left upper extremity (Acute) per [facility] referral 2inch diameter fungating bleeding mass upper left extremity. Bacteremia (Acute) Post surgical complication (Acute) Unilateral inguinal hernia without obstruction or gangrene (Acute) Basal cell carcinoma of upper extremity (Acute) Medical History DVT (deep venous thrombosis) Elevated PSA Hyperlipidemia Hypertension Osteoarthritis, hip, bilateral Problem related to housing and economic circumstances Seborrheic dermatitis Septic arthritis Urinary retention Surgical History History of colonoscopy (~09/2021) History of esophagogastroduodenoscopy (EGD) (~09/2021) Unilateral inguinal hernia with mesh per pt. Right side per patient Social History Smoking/Tobacco Use Status: Never Smoking risk assessment performed?: Yes Alcohol Intake: current Alcohol Intake frequency: a few times a month Alcohol type: wine Drug use: Never Substance use type: does not use Current gender identity: male Do you feel safe at home: Yes Do you feel safe in your relationship?: Yes Additional Social history: lives alone Exam Narrative Exam Narrative: 1.Const: Well-nourished, Well-developed, appearing stated age 2.Eyes: PERRL, no conjunctival injection, and symmetrical lids. 3.ENT: Atraumatic external nose and ears. Dry MM. Neck: Symmetric, trachea midline, No thyromegaly. 4.CVS: +S1/S2, No murmurs or gallops. Peripheral pulses 2+ and equal in all extremities. Brisk capillary refill in all extremities. 5.RESP: Unlabored respiratory effort. Clear to auscultation bilaterally. No wheezes rales or rhonchi 6.GI: Soft, Nontender/Nondistended, No hepatosplenomegaly. No guarding or rebound. Postoperative left inguinal hernia site is clean dry and intact, no tenderness. Genital exam demonstrates mild scrotal edema, nontender testicles and penis. Patient has notable pain when he bends forward, but he is not able to specify where this is located. 7.MSK: Normocephalic/Atraumatic, Extremities w/o deformity or ttp No cyanosis or clubbing, Normal movement of all extremities 8.Skin: Warm, Dry. 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 Sensation grossly intact, no focal neurologic deficits. 10.Psych: (AAO) x3. But atypical decision-making processes. Course Vital Signs Vital signs: Vital Signs Temperature 36.5 C 04/29/22 20:27 Pulse 96 H 04/29/22 20:27 Respiratory Rate 16 04/29/22 20:27 Blood Pressure 124/52 L 04/29/22 20:27 Pulse Oximetry 97 04/29/22 20:27 Temperature 36.5 C 04/29/22 20:27 Temperature Source Tympanic 04/29/22 20:27 Pulse 96 H 04/29/22 20:27 Respiratory Rate 16 04/29/22 20:27 Respiratory Effort 04/29/22 20:41 Blood Pressure 124/52 L 04/29/22 20:27 Blood Pressure Position Supine 04/29/22 20:27 Pulse Oximetry 97 04/29/22 20:27 Oxygen Delivery Method Room Air 04/29/22 20:27 Oxygen Flow Rate 0 04/29/22 20:27 PAWSS Have you Been Recently Intoxicated or Drunk Within the Last 30 days?: No Have you Ever Experienced Previous Episodes of Alcohol Withdrawal?: No Have you ever Experienced Withdrawal Seizures?: No Have you ever Experienced Delirium Tremens(DT)s?: No Have you ever undergone Alcohol Rehabilitation Treatment (i.e, inpt ot outpatient treatment programs)?: No Have you ever Experienced Blackouts?: No Have you ever Combined Alcohol with other Downers within the last 90 days?: No Have you ever Combined Alcohol with any other Substance of Abuse during the last 90 days?: No Positive Blood Alcohol level on Presentation? [PCS.BAL]: No Evidence of Increased Autonomic Activity (i.e. HR>120, tremor, sweating, agitation, nausea)?: No Result: 0
[2022-04-29 20:59] LABS: HCT 26.8 % (40.0-50.0); HGB 9.2 g/dL (13.5-17.5); MCH 31.6 pg (27.0-33.0); MCHC 34.3 % (32.0-36.0); MCV 92 fL (80-95); MPV 9.6 fL (8.0-11.0); Platelet Count 346 10^3/uL (130-400); RBC 2.91 10^6/uL (4.36-5.78); RDW-SD 43.6 fL; WBC 24.83 10^3/uL (4.4-10.8)
--- NOTE | 2022-04-29 21:00 | DI.CT_ITS ---
Exam(s) CT HEAD WO EXAM: CT HEAD WO CLINICAL HISTORY: fall, confusion. TECHNIQUE: Imaging Protocol: Axial computed tomography images with coronal and sagittal reformatted images were created and reviewed COMPARISON: CT HEAD WITHOUT CONTRAST from 01/17/2015 FINDINGS: Ventricles and Extra axial spaces: Normal in size and morphology for the patient's age. Hemorrhage: None. Cerebral parenchyma: Mild atrophy. Mild small vessel changes of the white matter. Midline shift: None. Brainstem/Cerebellum: Normal. Calvarium: Normal. Visualized Paranasal sinuses/Mastoids: Clear. Soft Tissues: Unremarkable. IMPRESSION: No acute intracranial process. RADIATION DOSE DELIVERED: 916.75mGy.cm Total DLP DATA REPOSITORY: All CT scans at this facility are submitted to the National Radiology Data Registry (NRDR) Dose Index Registry (DIR) with the [employer] (A[employer]). RADIATION OPTIMIZATION: All CT scans at this facility use at least one of these dose optimization te chniques: automated exposure control; mA and/or kV adjustment per patient size (includes targeted exa ms where dose is matched to clinical indication); or iterative reconstruction.
[2022-04-29 21:17] LABS: Absolute Lymphocyte Count 0.25 10^3/uL (1.2-3.4); Absolute Neutrophil Count 24.09 10^3/uL (1.2-6.7); Bands % 14
[2022-04-29 21:18] LABS: Diff Comment Manual Differential; Polychromasia Present
[2022-04-29 21:23] LABS: ALT 29 U/L (16-63); AST 61 U/L (15-37); Albumin 2.9 g/dL (3.4-5.0); Alkaline Phosphatase 149 U/L (46-116); Anion Gap 12.9 mmol/L (3-11); BUN 66 mg/dL (7-18); Bilirubin, Total 0.6 mg/dL (0.2-1.0); CO2 23.1 mmol/L (21.0-32.0); CREATININE 2.1 mg/dL (0.70-1.30); Calcium 9.2 mg/dL (8.5-10.1); Chloride 95 mmol/L (98-107); Estimated GFR 32.22 (mL/min/1.73m2); Glucose 90 mg/dL (74-106); Potassium 3.9 mmol/L (3.5-5.1); Sodium 131 mmol/L (136-145); Total Protein 7.3 g/dL (6.4-8.2)
[2022-04-29] MEDS: Normal Saline 500 ML IV ×2 (21:23→22:45)
[2022-04-29 21:25] LABS: BE (Venous) -1 mmol/L (-2-3); HCO3 (Venous) 22 mmol/L (23-28); O2 Sat (Venous) 98 %; TCO2 (Venous) 21 mmol/L (24-29); pCO2 (Venous) 29 mmHg (41-51); pH (Venous) 7.49 (7.31-7.41); pO2 (Venous) 96 mmHg
--- NOTE | 2022-04-29 21:28 | DI.CT_ITS ---
Exam(s) CT CHEST/ABD/PEL W EXAM: CT CHEST/ABD/PEL W CLINICAL HISTORY: recent surgery, urinary retention, confusion. TECHNIQUE: Imaging Protocol: Axial computed tomography images with coronal and sagittal reformatted images were created and reviewed CONTRAST MATERIAL: Intravenous: Omnipaque 350 Contrast volume:100 ml Oral: No COMPARISON: No exams were available for comparison FINDINGS: CHEST: Tracheobronchial tree: Patent where visualized. Mediastinum and Laine: No dominant adenopathy or fluid collection. Pulmonary parenchyma: No consolidation or dominant measurable mass. Pleura: No effusion or pneumothorax. Lymph nodes: Within normal limits. Aorta: Thoracic portion non-dilated. Heart: Normal size. Bones: Degenerative changes. No compression fractures. No lytic or blastic lesions. ABDOMEN: Liver: Normal density. No measurable mass. Gallbladder and biliary tract: No radiodense calculus or dilation. Pancreas: Normal density, no abnormal calcifications or inflammatory process. Spleen: Normal. Kidneys: Severe dilatation of the left renal collecting system down to the level of the bladder. Mod erate dilatation of the right collecting system, also down to the level of the bladder. Normal size, contour and axis. No radiodense stones. No masses seen. Cyst posterior right kidney. Adrenal glands: No masses seen. Aorta: Abdominal portion non-dilated. Atherosclerotic changes. Lymph nodes: Within normal limits. Soft tissues: Unremarkable. PELVIS: Bladder: Distended up to level of the umbilicus.. Markedly wall thickening and trabeculation is well as a few small diverticula. No stones. Bowel: No obstruction or bowel wall thickening. Peritoneal cavity: No ascites, collection or mesenteric inflammatory response. Bones: Severe degenerative changes of both hips. Degenerative disc changes and facet degenerative ch anges noted in the spine. Reproductive organs: Severely enlarged prostate, measuring 10 x 11 by 11 cm IMPRESSION: Markedly enlarged prostate causing significant bladder outlet obstruction as well as bilateral hydron ephrosis, left greater than right. RADIATION DOSE DELIVERED: 985.79mGy.cm Total DLP DATA REPOSITORY: All CT scans at this facility are submitted to the National Radiology Data Registry (NRDR) Dose Index Registry (DIR) with the [employer] (ACR). RADIATION OPTIMIZATION: All CT scans at this facility use at least one of these dose optimization te chniques: automated exposure control; mA and/or kV adjustment per patient size (includes targeted exa ms where dose is matched to clinical indication); or iterative reconstruction.
[2022-04-29 21:37] LABS: Creatine Kinase 829 U/L (39-308); TSH (W/Ref FT4) 2.77 uIU/mL (0.36-3.74)
[2022-04-29] MEDS: Omnipaque 350 MG/ML 100 ML BTL IJ (21:47)
[2022-04-29] MEDS: Normal Saline - Diluent 50 ML VIAL IV (21:47)
[2022-04-29] MEDS: Normal Saline Flush 10 ML SYR IVP (21:50)
--- NOTE | 2022-04-29 21:52 | DI.VRAD_ITS ---
PROCEDURE INFORMATION: Exam: CT Head Without Contrast Exam date and time: 04/29/2022 9:40 PM Age: 76 years old Clinical indication: Other: Fall, confusion TECHNIQUE: Imaging protocol: Computed tomography of the head without contrast. Radiation optimization: All CT scans at this facility use at least one of these dose optimization techniques: automated exposure control; mA and/or kV adjustment per patient size (includes targeted exams where dose is matched to clinical indication); or iterative reconstruction. COMPARISON: No relevant prior studies available. FINDINGS: Brain: Mild volume loss No hemorrhage. Moderate white matter disease No mass effect. Cerebral ventricles: No ventriculomegaly. Paranasal sinuses: Visualized sinuses are unremarkable. No fluid levels. Mastoid air cells: Visualized mastoid air cells are well aerated. Bones/joints: Unremarkable. No acute fracture. Soft tissues: Unremarkable. IMPRESSION: No acute intracranial abnormality. Dictated and Authenticated by: Kel Marquez MD. Ordering:LISBET Ferreira MD
--- NOTE | 2022-04-29 22:05 | DI.VRAD_ITS ---
PROCEDURE INFORMATION: Exam: CT Chest With Contrast; Diagnostic Exam date and time: 04/29/2022 9:46 PM Age: 76 years old Clinical indication: Other: Recent surgery, urinary retention, confusion TECHNIQUE: Imaging protocol: Diagnostic computed tomography of the chest with contrast. 3D rendering (Not supervised by radiologist): MIP and/or 3D reconstructed images were created by the technologist. Radiation optimization: All CT scans at this facility use at least one of these dose optimization techniques: automated exposure control; mA and/or kV adjustment per patient size (includes targeted exams where dose is matched to clinical indication); or iterative reconstruction. Contrast material: OMNIPAQUE 350; Contrast volume: 100 ml; Contrast route: INTRAVENOUS (IV); COMPARISON: No relevant prior studies available. FINDINGS: Lungs: Unremarkable. No consolidation. No masses. Pleural spaces: Unremarkable. No pneumothorax. No pleural effusion. Heart: Unremarkable. No cardiomegaly. No pericardial effusion. Lymph nodes: Unremarkable. No enlarged lymph nodes. Vasculature: Unremarkable. No aortic aneurysm. Bones/joints: Unremarkable. No acute fracture. Soft tissues: Unremarkable. IMPRESSION: No acute findings. PROCEDURE INFORMATION: Exam: CT Abdomen And Pelvis With Contrast Exam date and time: 04/29/2022 9:46 PM Age: 76 years old Clinical indication: Other: Recent surgery, urinary retention, confusion TECHNIQUE: Imaging protocol: Computed tomography of the abdomen and pelvis with contrast. 3D rendering (Not supervised by radiologist): MIP and/or 3D reconstructed images were created by the technologist. Radiation optimization: All CT scans at this facility use at least one of these dose optimization techniques: automated exposure control; mA and/or kV adjustment per patient size (includes targeted exams where dose is matched to clinical indication); or iterative reconstruction. Contrast material: OMNIPAQUE 350; Contrast volume: 100 ml; Contrast route: INTRAVENOUS (IV); COMPARISON: No relevant prior studies available. FINDINGS: Liver: Fatty infiltration. No mass. Gallbladder and bile ducts: Gallbladder contracted. No ductal dilation. Pancreas: Normal. No ductal dilation. Spleen: Normal. No splenomegaly. Adrenal glands: Normal. No mass. Kidneys and ureters: Moderate to severe dilatation of the left renal pelvis and left ureter. Moderate right hydroureteronephrosis. Right renal simple cyst. Stomach and bowel: Unremarkable. No obstruction. No mucosal thickening. Appendix: No evidence of appendicitis. Intraperitoneal space: Unremarkable. No free air. No significant fluid collection. Vasculature: Unremarkable. No abdominal aortic aneurysm. Lymph nodes: Unremarkable. No enlarged lymph nodes. Urinary bladder: Unremarkable as visualized. Reproductive: Severely enlarged prostate gland with a lobulated appearance. Polypoid component superiorly projecting posteriorly along the inferior margin of the bladder Bones/joints: Unremarkable. No acute fracture. Soft tissues: Unremarkable. IMPRESSION: Severely enlarged prostate gland and findings in keeping with presumed chronic bladder outlet obstruction. Left greater than right hydroureteronephrosis Dictated and Authenticated by: Kel Marquez MD. Ordering:LISBET Ferreira MD
[2022-04-29 22:34] LABS: Bilirubin Negative (Negative); Blood Moderate (Negative); Clarity Cloudy (Clear); Glucose Negative (Negative); Ketones Trace mg/dL (Negative); Leukocyte Esterase Moderate (Negative); Nitrite Negative (Negative); Specific Gravity 1.015 (1.005-1.025); Urobilinogen 0.2 EU/dL (Up TO 0.2)
[2022-04-29 22:42] LABS: C & S Indicated? C&S Done As Ordered; WBC >50 HPF (0-5)
[2022-04-29] MEDS: PIPERACILLIN/TAZO 4.5 GM in Normal Saline 100 ML IVPB (22:46)
--- NOTE | 2022-04-29 23:04 | HPE_ITS ---
Date of service: 04/29/22 Time of Service: 23:04 Assessment and Plan Assessment and plan (1) Sepsis: Status: Acute Assessment and plan: Due to a complicated UTI with bladder outlet obstruction and B hy droureteronephrosis, present on admission. S/p carmona catheter placement. Continue vancomycin initiated in the ED, but will switch zosyn to ceftriaxone to minimize chance of worsening ELINA. Await blood and urine C&S. Will provide another liter of IVF overnight. C/s urology. (2) Complicated UTI (urinary tract infection): Status: Acute Assessment and plan: As above (3) Bilateral hydronephrosis: Status: Acute Assessment and plan: As above (4) Toxic metabolic encephalopathy: Status: Acute Assessment and plan: Suspect this is due to his UTI. As above. MOnitor mental status as infection is getting treated. (5) Bilateral lower extremity edema: Status: Acute Assessment and plan: Check echo and venous dopplers. I think clinically the patient needs IVF more right now than diuresis, but I would limit IVF to just the one bag and start diuresis as soon as BP permits. (6) ELINA (acute kidney injury): Status: Acute Assessment and plan: Suspect this is combination of pre and post-renal injury; cannot rule out intrinsic injury. Treat infection. S/p carmona. IVF. Doubt that CPK in 800s would cause ELINA. Not technically in the rhabdomyolysis range. Repeat CPK in am. (7) Prostatic hypertrophy: Status: Chronic Assessment and plan: As above Per Dr Wallis's note, had a previously elevated PSA. Given acute UTI, now is not the time to recheck PSA. Will require outpatient f/u. (8) History of urinary retention: Status: Acute Assessment and plan: s/p carmona (9) Mass of urinary bladder determined by ultrasound: Status: Acute Assessment and plan: The patient was being planned for an outpatient cystoscopy by Dr Wallis. F/u as outpatient. (10) DVT prophylaxis: Status: Acute Assessment and plan: SC heparin (11) Discharge planning issues: Status: Acute Assessment and plan: Full code C/s PT. History of Present Illness History of Present Illness Chief Complaint: Confusion, weakness Narrative: Mr Cerna is a 76 year old male with PMHx of BPH, bladder, mass, urinary retention s/p removal of carmona catheter on 04/21/22, DVT, hypertension, hyperlipidemia, septic arthritis in the past, chronic anemia, who presented to [facility] ED today with worsening confusion and weakness x 1 month. His family checked on him today and found him to be too weak to get up. Per ER provider, he was stuck on his walker for about an hour. The patient himself is a vague historian. He does note that at some point both of his legs became swollen. He denies chest pain, shortness of breath, though he cannot answer CEVALLOS because has not been able to ambulate. He states he has home health services, but has not had access to food for about a week. He states he has been hydrating. He admits to feeling confused. He denies fevers, but endorses chills. He has a hard time understanding that question. He states that he has had nocturia, urgency, but not dysuria, and difficulty initiating the stream when urinating. His ER workup revealed a white count of 24 with 14 bands, an ELINA with Cr of 2.1, up from 1.1 in 11/18, purulent urine with pyuria by UA, and evidence of B (L>R) hydroureteronephrosis with severely enlarged prostate c/w chronic bladder outlet obstruction. CT head was negative. The patient was initiated empirically on vancomycin and zosyn for a complicated UTI in the ED. Carmona catheter was placed. Hospitalist admission was requested. The patient was hemodynamically stable in the ED. Review of Systems All systems reviewed & are unremarkable except as noted in HPI and below PFSH All Active Problems (Updated 04/30/22 @ 03:20 by Dee Chowdhury MD) Bilateral lower extremity edema (Acute) Toxic metabolic encephalopathy (Acute) Discharge planning issues (Acute) ELINA (acute kidney injury) (Acute) DVT prophylaxis (Acute) Bilateral hydronephrosis (Acute) Complicated UTI (urinary tract infection) (Acute) Sepsis (Acute) Acute UTI (Acute) History of urinary retention (Acute) Bandemia (Acute) Prostatic hypertrophy (Chronic) Mass of urinary bladder determined by ultrasound (Acute) Urinary retention with incomplete bladder emptying (Acute) Urinary retention due to benign prostatic hyperplasia (Acute) BPH (benign prostatic hyperplasia) (Chronic) Essential hypertension (Acute) Rectal/anal hemorrhage (Acute) Skin lesion (Acute) Gastric polyp (Acute) Normal colonoscopy (Acute) Mass of left upper extremity (Acute) per [facility] referral 2inch diameter fungating bleeding mass upper left ext remity. Bacteremia (Acute) Post surgical complication (Acute) Unilateral inguinal hernia without obstruction or gangrene (Acute) Basal cell carcinoma of upper extremity (Acute) Medical History DVT (deep venous thrombosis) Elevated PSA Hyperlipidemia Hypertension Osteoarthritis, hip, bilateral Problem related to housing and economic circumstances Seborrheic dermatitis Septic arthritis Urinary retention Surgical History History of colonoscopy (~09/2021) History of esophagogastroduodenoscopy (EGD) (~09/2021) Unilateral inguinal hernia with mesh per pt. Right side per patient Social History Smoking/Tobacco Use Status: Never Smoking risk assessment performed?: Yes Alcohol Intake: current Alcohol Intake frequency: a few times a month Alcohol type: wine Drug use: Never Substance use type: does not use Current gender identity: male Do you feel safe at home: Yes Do you feel safe in your relationship?: Yes Additional Social history: lives alone Meds Allergies and Home Medications Allergies Allergy/AdvReac Type Severity Reaction Status Date / Time amlodipine Allergy Unknown UNKNOWN Verified 04/21/22 15:02 sulfamethoxazole Allergy Unknown UNKNOWN Verified 04/21/22 15:02 [From Sulfamethoxazole-Trimethoprim] trimethoprim Allergy Unknown Verified 04/21/22 15:02 [From Sulfamethoxazole-Trimethoprim] Home Medications Medication Instructions Recorded Confirmed Type ferrous sulfate 325 mg (65 mg 325 mg PO DAILY 11/07/21 04/21/22 History iron) tablet krill 500 mg-omega 3 115 mg-dha 30 1 cap PO DAILY 12/11/21 04/21/22 History mg-epa 64 [id number] capsule (Antarctic Krill Oil) cyanocobalamin (vitamin B-12) 100 100 mcg PO DAILY 03/10/22 04/21/22 History mcg tablet collagen care 2 cap PO DAILY 03/20/22 04/21/22 History collegen peptids 2 - 3 ea PO DAILY 03/20/22 04/21/22 History tumeric 100 mg-alvarez 150 mg-olive 2 cap PO DAILY 03/20/22 04/21/22 History 50 mg-oreg 150 mg-caprylate capsule C-Zn-[id number].ginseng-derrek [id number] 75 2 tab PO DAILY 03/27/22 04/21/22 History mg tablet multivitamin with minerals 1 tab PO DAILY 03/27/22 04/21/22 History vitamin D3 1,250 mcg (50,000 1 cap PO DAILY 03/27/22 04/21/22 History unit)-vitamin K2 200 mcg capsule psyllium husk 3.4 gram/5.4 gram 1 tbsp PO DAILY #660 grams 03/31/22 04/21/22 Rx oral powder (Metamucil) tamsulosin 0.4 mg capsule (Flomax) 0.4 mg PO QHS #14 caps 03/31/22 04/21/22 Rx Exam Narrative Exam Narrative: General: Pleasant elderly male who is A&Ox3, but is slow to recall facts and is a very vague history provider, difficulty sitting up in bed Neurological: A&Ox3, no focal neurological deficits, diffusely weak Psychiatric: Tangential speech pattern, animated affect Skin: Mild erythema BLEs HEENT: Atraumatic, normocephalic, EOMI, MMM, clear oropharynx, no submandibular or cervical lymphadenopathy, no goiter or JVD Cardiovascular: RRR, no m/r/g Lungs: CTAB Gastrointestinal: soft, nontener, nondistended Genitourinary: has a carmona which is draining clear yellow urine Extremities: 2+ edema to B knees, 2+ pedal pulses B, no c/c, mild erythema B tibial surfaces. Results Imaging Additional studies: CT head w/o contrast: No acute intracranial abnormality. CT chest w/ contrast: No relevant prior studies available. CT abdomen/pelvis: Severely enlarged prostate gland and findings in keeping with presumed chronic bladder outlet obstruction. Left greater than right hydroureteronephrosis Labs Result diagrams: 04/29/22 20:35 04/29/22 20:35 Labs: Laboratory Results - last 24 hr 04/29/22 04/29/22 04/29/22 20:35 20:35 20:35 WBC 24.83 H RBC 2.91 L Hgb 9.2 L Hct 26.8 L MCV 92 MCH 31.6 MCHC 34.3 RDW 13.0 Plt Count 346 MPV 9.6 Immature Gran % 0.0 Neutrophils % 83.0 Band Neutrophils % 14 Lymphocytes % 1.0 Monocytes % 2.0 Eosinophils % 0.0 Basophils % 0.0 Nucleated RBC % 0.0 Absolute Neutrophils 24.09 H Absolute Lymphocytes 0.25 L Absolute Monocytes 0.50 Absolute Eosinophils 0.00 Absolute Basophils 0.00 RBC Morphology See Below Polychromasia Present VBG pH VBG pCO2 VBG pO2 VBG HCO3 VBG Total CO2 VBG O2 Saturation VBG Base Excess VBG Lactate Sodium 131 L Potassium 3.9 Chloride 95 L Carbon Dioxide 23.1 Anion Gap 12.9 H BUN 66 H Creatinine 2.1 H Est GFR (CKD-EPI 2020) 32.22 Glucose 90 Calcium 9.2 Total Bilirubin 0.6 AST 61 H ALT 29 Alkaline Phosphatase 149 H Creatine Kinase 829 H Total Protein 7.3 Albumin 2.9 L TSH 2.77 Urine Color Urine Clarity Urine pH Ur Specific [place] Urine Protein Urine Ketones Urine Blood Urine Nitrite Urine Bilirubin Urine Urobilinogen Ur Leukocyte Esterase Urine RBC Urine WBC Ur Epithelial Cells Urine Crystals Urine Bacteria Urine Mucus Ur Culture Indicated? Urine Glucose 04/29/22 04/29/22 04/29/22 21:19 22:24 22:40 WBC RBC Hgb Hct MCV MCH MCHC RDW Plt Count MPV Immature Gran % Neutrophils % Band Neutrophils % Lymphocytes % Monocytes % Eosinophils % Basophils % Nucleated RBC % Absolute Neutrophils Absolute Lymphocytes Absolute Monocytes Absolute Eosinophils Absolute Basophils RBC Morphology Polychromasia VBG pH 7.49 H VBG pCO2 29 L VBG pO2 96 VBG HCO3 22 L VBG Total CO2 21 L VBG O2 Saturation 98 VBG Base Excess -1 VBG Lactate 1.0 Sodium Potassium Chloride Carbon Dioxide Anion Gap BUN Creatinine Est GFR (CKD-EPI 2020) Glucose Calcium Total Bilirubin AST ALT Alkaline Phosphatase Creatine Kinase Total Protein Albumin TSH Urine Color Yellow Urine Clarity Cloudy Urine pH 6.0 Ur Specific [place] 1.015 Urine Protein 30 H Urine Ketones Trace H Urine Blood Moderate H Urine Nitrite Negative Urine Bilirubin Negative Urine Urobilinogen 0.2 Ur Leukocyte Esterase Moderate H Urine RBC Not Applicable Urine WBC >50 H Ur Epithelial Cells Not Applicable Urine Crystals Not Applicable Urine Bacteria Not Applicable Urine Mucus Not Applicable Ur Culture Indicated? C&S Done As Ordered Urine Glucose Negative Last Vital Signs Temp 36.5 C 04/29/22 20:27 Pulse 96 H 04/29/22 20:27 Resp 16 04/29/22 20:27 BP 124/52 L 04/29/22 20:27 Pulse Ox 97 04/29/22 20:27 PAWSS Have you Been Recently Intoxicated or Drunk Within the Last 30 days?: No Have you Ever Experienced Previous Episodes of Alcohol Withdrawal?: No Have you ever Experienced Withdrawal Seizures?: No Have you ever Experienced Delirium Tremens(DT)s?: No Have you ever undergone Alcohol Rehabilitation Treatment (i.e, inpt ot outpatient treatment programs)?: No Have you ever Experienced Blackouts?: No Have you ever Combined Alcohol with other Downers within the last 90 days?: No Have you ever Combined Alcohol with any other Substance of Abuse during the last 90 days?: No Positive Blood Alcohol level on Presentation? [PCS.BAL]: No Evidence of Increased Autonomic Activity (i.e. HR>120, tremor, sweating, agitation, nausea)?: No Result: 0 Time Spent Time spent with Patient: 55-74 minutes Time was spent: preparing to see the patient(eg.review tests), obtaining and/or reviewing separately otained hiistory, ordering medications,tests, procedures, referring, communicating with other health child care centre director, indepentently interpreting results, counseling the patient and care coordination
[2022-04-29 23:05] LABS: Source Nasal/Nares
[2022-04-29 23:20] LABS: Procalcitonin 88.3 ng/mL
[2022-04-29 23:35] LABS: COVID-19 PCR Negative (Negative)
[2022-04-29 23:56] VITALS: BP 96/48; PULSE 84; RESP 16; TEMP 36.8; O2SAT 96
--- NOTE | 2022-04-30 | DI.US_ITS ---
Exam(s) US EXTREMITY VENOUS BI EXAM: US EXTREMITY VENOUS BI CLINICAL HISTORY: BLE edema. TECHNIQUE: Bilateral lower extremity venous ultrasound performed using grayscale, color-flow, and sp ectral Doppler analysis. COMPARISON: No exams were available for comparison FINDINGS: The bilateral common femoral, femoral and popliteal veins demonstrate normal compressibility, augment ation, and color Doppler. The posterior tibial veins are patent. Edema is seen in the subcutaneous f at of both lower extremities. IMPRESSION: Right: Negative for DVT Left: Negative for DVT DATA REPOSITORY:
[2022-04-30 00:30] VITALS: BP 100/60; PULSE 87; RESP 18; TEMP 37; O2SAT 97
[2022-04-30 00:52] VITALS: BP 100/60; PULSE 87; RESP 18; TEMP 37; O2SAT 97
[2022-04-30] MEDS: Lactated Ringers 250 ML IV (01:40)
[2022-04-30] MEDS: Lactated Ringers 1,000 ML 125 ML IV (02:15)
[2022-04-30 03:12] VITALS: BP 98/46; PULSE 72; RESP 15; TEMP 36.2; O2SAT 97
[2022-04-30] MEDS: Heparin 5,000 UNITS/ML VIAL 5000 UNITS SC (06:41)
[2022-04-30] MEDS: cefTRIAXone 2 GM/50 ML BAG IVPB (06:41)
[2022-04-30 06:57] LABS: Abs Immature Grans 0.13 10^3/uL (0.0-0.06); Absolute Basophil Count 0.07 10^3/uL (0.0-0.2); Absolute Neutrophil Count 19.17 10^3/uL (1.2-6.7); Basophils % 0.3; HGB 7.7 g/dL (13.5-17.5); Immature Grans % 0.6; Lymphocytes % 6.8; MCH 31.7 pg (27.0-33.0); MCV 91 fL (80-95); MPV 9.6 fL (8.0-11.0); Monocytes % 6.9; Neutrophils % 85.4; Platelet Count 281 10^3/uL (130-400); RBC 2.43 10^6/uL (4.36-5.78); RDW 13.2 % (11.8-14.1); RDW-SD 43.9 fL; WBC 22.45 10^3/uL (4.4-10.8)
[2022-04-30 07:15] LABS: Absolute Lymphocyte Count 1.53 10^3/uL (1.2-3.4); Absolute Monocyte Count 1.55 10^3/uL (0.1-0.8)
[2022-04-30 07:18] LABS: Anion Gap 9.7 mmol/L (3-11); BUN 54 mg/dL (7-18); C-Reactive Protein 13.06 mg/dL (0.0-0.3); CO2 24.3 mmol/L (21.0-32.0); CREATININE 1.8 mg/dL (0.70-1.30); Calcium 8.4 mg/dL (8.5-10.1); Chloride 103 mmol/L (98-107); Estimated GFR 38.77 (mL/min/1.73m2); Glucose 101 mg/dL (74-106); Magnesium 2.2 mg/dL (1.8-2.4); Potassium 3.6 mmol/L (3.5-5.1); Sodium 137 mmol/L (136-145)
[2022-04-30 07:33] LABS: Creatine Kinase 1227 U/L (39-308)
[2022-04-30 07:43] LABS: Diff Comment Diff Reviewed; RBC Morphology Normal
[2022-04-30 08:47] LABS: Lab Add On Test DONE
[2022-04-30 08:51] LABS: HGB 8.1 g/dL (13.5-17.5)
[2022-04-30 08:55] LABS: Reticulocyte 0.6 % (0.5-2.4)
[2022-04-30 09:18] LABS: Iron 6 ug/dL (65-175); Total Iron Binding Capacity 121 ug/dL (250-450); Transferrin Sat 5 % (20-55)
[2022-04-30 09:45] LABS: Ferritin 153 ng/mL (26-388); Folate 18.4 ng/mL (8.6-20.0); Vitamin B12 1481 pg/mL (193-986)
[2022-04-30 09:58] LABS: LDH 191 U/L (85-227)
--- NOTE | 2022-04-30 10:12 | PDOC.CMIN ---
- If Service Date Differs Date of service: 04/30/22 Time of Service: 10:12 Care Management Initial Assess REASON FOR HOSPITALIZATION:: Sepsis due to complicated UTI. PAST MEDICAL HISTORY/PAST SURGICAL HISTORY:: All Active Problems (Updated 04/30/22 @ 03:20 by Dee Chowdhury MD). Bilateral lower extremity edema (Acute). Toxic metabolic encephalopathy (Acute). Discharge planning issues (Acute). ELINA (acute kidney injury) (Acute). DVT prophylaxis (Acute). Bilateral hydronephrosis (Acute). Complicated UTI (urinary tract infection) (Acute). Sepsis (Acute). Acute UTI (Acute). History of urinary retention (Acute). Bandemia (Acute). Prostatic hypertrophy (Chronic). Mass of urinary bladder determined by ultrasound (Acute). Urinary retention with incomplete bladder emptying (Acute). Urinary retention due to benign prostatic hyperplasia (Acute). BPH (benign prostatic hyperplasia) (Chronic). Essential hypertension (Acute). Rectal/anal hemorrhage (Acute). Skin lesion (Acute). Gastric polyp (Acute). Normal colonoscopy (Acute). Mass of left upper extremity (Acute). per [facility] referral 2inch diameter fungating bleeding mass upper left extremity.. Bacteremia (Acute). Post surgical complication (Acute). Unilateral inguinal hernia without obstruction or gangrene (Acute). Basal cell carcinoma of upper extremity (Acute). Medical History . DVT (deep venous thrombosis). Elevated PSA. Hyperlipidemia. Hypertension. Osteoarthritis, hip, bilateral. Problem related to housing and economic circumstances. Seborrheic dermatitis. Septic arthritis. Urinary retention. Surgical History . History of colonoscopy (~09/2021). History of esophagogastroduodenoscopy (EGD) (~09/2021). Unilateral inguinal hernia. with mesh per pt. Right side per patient PREVIOUS FUNCTIONAL STATUS/SOCIAL/FAMILY SUPPORTS:: Thong lives alone in [facility]. He graduated from [employer] then joined the [employer]. He is VA connected. His primary support person is his sister Aleah who lives in [place], [place]. She comes to the area frequently and stays at her Condo in [place]. Thong shares that he has children, but they are not close. Thong has a flight of stairs at his home which he reportedly manages fine. CM is unclear of Thong's functional mobility. Here Thong requires total assistance with his ADL's. He has [facility] RN/PT/OT. Per pt, Opal from the [facility] is his coordinator and she is in the process of setting him up with additional services to help him stay at home. CURRENT FUNCTIONAL STATUS:: Guy is lying in bed when CM met with him. Thong is awake and able to engage in conversation. Thong reports that he manages well at home, and is in the process of getting more support through the [facility]. He spoke with his VA coordinator Opal and is hoping to get a clinical lab technologist and a plow auto transport driver. Thong shares that he doesn't take medications or have a pharmacy because he lives an organtic lifestyle. ADVANCE DIRECTIVES:: None on file. Has patient been provided with info about the portal/API?: Yes Did the patient sign up for the portal?: No CODE STATUS:: Full Code INSURANCE COVERAGE / FINANCIAL ISSUES:: VA CURRENT HOME/COMMUNITY SERVICES/EQUIPMENT:: VA Coordnator is Opal at [facility]. [facility] RN,PT,OT. Samir. [facility] PRIMARY CARE PHYSICIAN:: Ghada Avelar POTENTIAL DISCHARGE NEEDS:: Follow up appointments with VA, increased home services, transportation PATIENT/FAMILY EDUCATION NEEDS:: Review discharge instructions, limitations, medications and plan to follow up with VA and community providers. Discuss ask me three and goals of self care. TRANSPORTATION:: Via [facility] PLAN:: Thong requires close monitoring and treatment with IV ABX. Cultures are pending. PT recommends SNF vs. Home with services. Pts preference is to discharge home with resumption of [facility] RN/PT/OT and increased home support. Per pt, the [place] is currently working on getting him more home services but also warned him that this is a lengthy process. [facility] will provide transportation if going home. CM will follow.
--- NOTE | 2022-04-30 10:28 | IN_ITS ---
PT Notes Visit Reasons: Sepsis Due to a Complicated UTI,B Hydronephrosis Inpatient Physical Therapy Evaluation Date: 04/30/22 Referring Doctor: Dr Chowdhury PT Orders: PT CONSULT: limited ability to ambulate Precautions: standard Patient Profile/Admitting Diagnosis: Patient is a 76 year old male with PMHx of BPH, bladder, mass,? urinary retention s/p removal of carmona catheter on 04/21/22, DVT, hypertension, hyperlipidemia, septic arthritis in the past, chronic anemia, who presented to [facility] ED yesterday with worsening confusion and weakness x 1 month. Diagnosed with sepsis and complicated UTI, and admitted for medical management. PMHX: All Active Problems? Postoperative anemia due to acute blood loss (Acute) Post surgical complication (Acute) H/O local excision of skin lesion (Acute) Bacteremia (Acute) Mass of left upper extremity (Acute) per [facility] referral 2inch diameter fungating bleeding mass upper left extremity.Normal colonoscopy (Acute) Gastric polyp (Acute) Essential hypertension (Acute) Rectal/anal hemorrhage (Acute) Skin lesion (Acute) Medical History? DVT (deep venous thrombosis) Elevated PSA Hyperlipidemia Hypertension Osteoarthritis, hip, bilateral Problem related to housing and economic circumstances Seborrheic dermatitis Septic arthritis Urinary retention Social History/Home Situation: Patient reports that he lives alone in a multi- level home. He uses a 4WW at baseline, and has one on each floor. Uses a scooter for community distances. Reports [address] home, which he typically manages with his walker. Receives services. Equipment Owned/DME: 4WW, motorized scooter Subjective: Thong reports feeling anxious about getting up, stating he has chronic bilat hand and left hip pain. He is concerned that movement will aggravate his pain and make him generally worse. Objective: General Observation: Resting in bed. IV in LUE, Carmona catheter in place. Mental Status: A&Ox3. Pain: chronic pain as noted above, which patient reports is at baseline ROM: Right Upper Extremity: Shoulder flexion 120*. Elbow and wrist motion WFL. Able to form loose microbiological lab technician and fully open hand. Left Upper Extremity: Shoulder flexion 120*. Elbow and wrist motion WFL.Able to form loose microbiological lab technician and fully open hand. Right Lower Extremity: WFL Left Lower Extremity: hip flexion allows 85* with pain. Hip AB 10* with crepitus. Limited tolerance to sitting position due to restrictions in hip flexion and associated pain. Strength: Right Upper Extremity: Grossly 3-/5 Left Upper Extremity: Grossly 3-/5 Bilat Lower Extremity: No MMT applied due to post-op status. Quads 3/5 or greater. DF 3/5 or greater. Unable to perform SLR on left due to hip pain. Bed Mobility/Transfers: supine-sit: max A sit-stand: unable stand-sit: unable sit-supine: max A x 2 Gait: unable Balance: Static Sitting: poor Dynamic Sitting: poor Static Standing:unable Dynamic Standing: unable Special Tests: Mobility Limitations Standardized Measure [facility]-PAC 6 clicks Basic Mobility Inpatient Short Form: Raw Score: 8 CMS Score: 86% impairment Informed Consent/Education: Patient instructed in purpose of PT consult and plan of care. Treatment ([id number]): Patient was instructed in log rolling techniques, although with limited carryover. Attempted sitting exercise, although with limited torance. Assessment: Patient is a 76 year old male referred to physical therapy services with the diagnosis of limited ability to ambulate during acute care stay for management of sepsis and complicated UTI. Patient presents with clinical signs and symptoms consistent with diagnosis, and complicated by baseline mobility impairments. He requires skilled PT intervention to maximize his mobility and activity tolerance, and allow for safe transition back to community. He will benefit from continued PT upon discharge to continue addressing his chronic mobility issues. He currently demonstrates the following impairment level findings: 1. Decreased activity tolerance 2. decreased LE strength 3. decreased UE ROM and strength 4. chronic pain in hands, with limited microbiological lab technician for WW management 5. decreased LE ROM Impairments are contributing to the following functional limitations: 1. Decreased activity tolerance 2. decreased independence with bed mobility 3. unable to ambulate Patient is assessed as moderate [id number] complexity based on the following: History: Patient is a 76 year old male presenting with acute on chronic mobility issues. He reports baseline mobility impairments, now impacted by recent surgery. He reports that he's been working with the [facility] to establish increased care at home, although transition to home vs. SNF will be better determined as he improves medically. His AM-PAC scores today do not support return to community, although I anticipate improvement with intervention. He requires continued PT intervention during his acute care stay to maximize independence and activity tolerance, and would also recommend continued PT intervention (either HH or outpatient) once he returns home. Examination: functional limitations as noted above Presentation: evolving Decision Making: moderate complexity Goals: Goals X1 week 1. Supine-Sit : supervision 2. Sit-Supine : supervision 3. Sit-Stand : supervision 4. Stand-Sit : supervision 5. Bed-Chair : supervision with 4WW 6. Chair-Bed : supervision with 4WW 7. Gait : supervision with 4WW x 50' 8. Stairs : able to ascend and descend 2 stairs with bilat UE support to rails Plan of Care/Treatment Plan: 1-2x/day, 7 days/week x 1 week. Plan of care has been reviewed with the CAP BLOCKER providing the service under Physical Therapy direction. Initiate Physical Therapy intervention for strengthening, bed mobility, transfers, gait, stairs, balance training, use of assistive device. DISCHARGE RECOMMENDATIONS: SNF vs. Home with services - outpatient PT vs HH TREATMENT CODE/TIME: 9:40 - 10:20 ([id number]) Valorie Wells, PT, DPT [facility]
[2022-04-30 11:07] VITALS: BP 103/60; PULSE 72; RESP 16; TEMP 36.6; O2SAT 96
--- NOTE | 2022-04-30 15:17 | PT.INNT ---
Date of service: 04/30/22 Time of Service: 15:17 PT Notes Visit Reasons: Sepsis Due to a Complicated UTI,B Hydronephrosis 04/30/2022 Patient refused afternoon PT session, stating I only need someone to rub lotions onto my hands, if you're not here to do that, I don't need you. He also states that he cannot walk and cannot sit at EOB, and is not willing to try this afternoon. Will attempt to engage patient in PT services tomorrow morning for progression of functional mobility.
[2022-04-30 15:22] VITALS: BP 99/64; PULSE 75; RESP 17; TEMP 36.9; O2SAT 96
--- NOTE | 2022-04-30 16:06 | W.PM.PROGNOT ---
Date of Service Date of service: 04/30/22 Time of Service: 16:06 Assessment and Plan Assessment and plan (1) Sepsis: Status: Acute Assessment and plan: Due to a complicated UTI with bladder outlet obstruction and B hydroureteronephrosis, present on admission. S/p carmona catheter placement. continue ceftriaxone, growing gram neg rods Await blood and urine C&S. consulted urology. (2) Complicated UTI (urinary tract infection): Status: Acute Assessment and plan: As above (3) Bilateral hydronephrosis: Status: Acute Assessment and plan: As above carmona placed (4) Toxic metabolic encephalopathy: Status: Acute Assessment and plan: Suspect this is due to his UTI. As above. MOnitor mental status as infection is getting treated. (5) Bilateral lower extremity edema: Status: Acute Assessment and plan: echo pending no DVT bilaterally (6) ELINA (acute kidney injury): Status: Acute Assessment and plan: Suspect this is combination of pre and post-renal injury; cannot rule out intrinsic injury. Treat infection. S/p carmona. IVF. Doubt that CPK in 800s would cause ELINA. Not technically in the rhabdomyolysis range. Repeat CPK in am. (7) Prostatic hypertrophy: Status: Chronic Assessment and plan: As above Per Dr Wallis's note, had a previously elevated PSA. Given acute UTI, now is not the time to recheck PSA. Will require outpatient f/u. (8) History of urinary retention: Status: Acute Assessment and plan: s/p carmona (9) Mass of urinary bladder determined by ultrasound: Status: Acute Assessment and plan: The patient was being planned for an outpatient cystoscopy by Dr Wallis. F/u as outpatient. (10) DVT prophylaxis: Status: Acute Assessment and plan: SC heparin (11) Discharge planning issues: Status: Acute Assessment and plan: Full code C/s PT. discussed with DR Cruz Subjective Subjective Patient reports: no new complaints, feels better, tolerating liquids well, tolerating a regular diet and afebrile; denies nausea or shortness of breath Exam Const General: cooperative, comfortable, frail appearing and ill appearing chronically Nutritional Appearance: thin Orientation: alert, awake, oriented x3 and confused (some intermittent confusion reported but orient on evaluation) HENMT Head: normal to inspection, normocephalic and atraumatic Mouth: oral mucosae normal Resp Effort & Inspection: normal respiratory effort Auscultation: clear to auscultation bilaterally and diminished lung sounds Cardio Rate: regular rate Rhythm: regular rhythm General: other ([place] catheter draining concentrated urine) Skin Lesions: lesion noted (Pressure to buttocks and hips see wound care consult and imaging) Rashes: no rashes Neuro General: patient alert, patient awake and patient oriented x3 Objective Last Vital Signs Temp 36.9 C 04/30/22 15:22 Pulse 75 04/30/22 15:22 Resp 17 04/30/22 15:22 BP 99/64 L 04/30/22 15:22 Pulse Ox 96 04/30/22 15:22 Laboratory Results - last 24 hr 04/29/22 04/29/22 04/29/22 20:35 20:35 20:35 WBC 24.83 H RBC 2.91 L Hgb 9.2 L Hct 26.8 L MCV 92 MCH 31.6 MCHC 34.3 RDW 13.0 Plt Count 346 MPV 9.6 Reticulocyte % (Auto) Immature Gran % 0.0 Neutrophils % 83.0 Band Neutrophils % 14 Lymphocytes % 1.0 Monocytes % 2.0 Eosinophils % 0.0 Basophils % 0.0 Nucleated RBC % 0.0 Absolute Neutrophils 24.09 H Absolute Lymphocytes 0.25 L Absolute Monocytes 0.50 Absolute Eosinophils 0.00 Absolute Basophils 0.00 RBC Morphology See Below Polychromasia Present VBG pH VBG pCO2 VBG pO2 VBG HCO3 VBG Total CO2 VBG O2 Saturation VBG Base Excess VBG Lactate Sodium 131 L Potassium 3.9 Chloride 95 L Carbon Dioxide 23.1 Anion Gap 12.9 H BUN 66 H Creatinine 2.1 H Est GFR (CKD-EPI 2020) 32.22 Glucose 90 Calcium 9.2 Magnesium Iron TIBC Transferrin % Sat Ferritin Total Bilirubin 0.6 AST 61 H ALT 29 Alkaline Phosphatase 149 H Lactate Dehydrogenase Creatine Kinase 829 H C-Reactive Protein Total Protein 7.3 Albumin 2.9 L Vitamin B12 Folate Procalcitonin TSH 2.77 Urine Color Urine Clarity Urine pH Ur Specific [place] Urine Protein Urine Ketones Urine Blood Urine Nitrite Urine Bilirubin Urine Urobilinogen Ur Leukocyte Esterase Urine RBC Urine WBC Ur Epithelial Cells Urine Crystals Urine Bacteria Urine Mucus Ur Culture Indicated? Urine Glucose COVID-19 Source SARS-CoV-2 (PCR) Add-On Test Request Patient ABO/Rh Antibody Screen 04/29/22 04/29/22 04/29/22 21:19 22:24 22:40 WBC RBC Hgb Hct MCV MCH MCHC RDW Plt Count MPV Reticulocyte % (Auto) Immature Gran % Neutrophils % Band Neutrophils % Lymphocytes % Monocytes % Eosinophils % Basophils % Nucleated RBC % Absolute Neutrophils Absolute Lymphocytes Absolute Monocytes Absolute Eosinophils Absolute Basophils RBC Morphology Polychromasia VBG pH 7.49 H VBG pCO2 29 L VBG pO2 96 VBG HCO3 22 L VBG Total CO2 21 L VBG O2 Saturation 98 VBG Base Excess -1 VBG Lactate Sodium Potassium Chloride Carbon Dioxide Anion Gap BUN Creatinine Est GFR (CKD-EPI 2020) Glucose Calcium Magnesium Iron TIBC Transferrin % Sat Ferritin Total Bilirubin AST ALT Alkaline Phosphatase Lactate Dehydrogenase Creatine Kinase C-Reactive Protein Total Protein Albumin Vitamin B12 Folate Procalcitonin 88.3 TSH Urine Color Yellow Urine Clarity Cloudy Urine pH 6.0 Ur Specific [place] 1.015 Urine Protein 30 H Urine Ketones Trace H Urine Blood Moderate H Urine Nitrite Negative Urine Bilirubin Negative Urine Urobilinogen 0.2 Ur Leukocyte Esterase Moderate H Urine RBC Not Applicable Urine WBC >50 H Ur Epithelial Cells Not Applicable Urine Crystals Not Applicable Urine Bacteria Not Applicable Urine Mucus Not Applicable Ur Culture Indicated? C&S Done As Ordered Urine Glucose Negative COVID-19 Source SARS-CoV-2 (PCR) Add-On Test Request Patient ABO/Rh Antibody Screen 04/29/22 04/29/22 04/30/22 22:40 23:00 06:40 WBC RBC Hgb Hct MCV MCH MCHC RDW Plt Count MPV Reticulocyte % (Auto) Immature Gran % Neutrophils % Band Neutrophils % Lymphocytes % Monocytes % Eosinophils % Basophils % Nucleated RBC % Absolute Neutrophils Absolute Lymphocytes Absolute Monocytes Absolute Eosinophils Absolute Basophils RBC Morphology Polychromasia VBG pH VBG pCO2 VBG pO2 VBG HCO3 VBG Total CO2 VBG O2 Saturation VBG Base Excess VBG Lactate 1.0 Sodium 137 Potassium 3.6 Chloride 103 Carbon Dioxide 24.3 Anion Gap 9.7 BUN 54 H Creatinine 1.8 H Est GFR (CKD-EPI 2020) 38.77 Glucose 101 Calcium 8.4 L Magnesium 2.2 Iron TIBC Transferrin % Sat Ferritin Total Bilirubin AST ALT Alkaline Phosphatase Lactate Dehydrogenase Creatine Kinase C-Reactive Protein 13.06 H Total Protein Albumin Vitamin B12 Folate Procalcitonin TSH Urine Color Urine Clarity Urine pH Ur Specific [place] Urine Protein Urine Ketones Urine Blood Urine Nitrite Urine Bilirubin Urine Urobilinogen Ur Leukocyte Esterase Urine RBC Urine WBC Ur Epithelial Cells Urine Crystals Urine Bacteria Urine Mucus Ur Culture Indicated? Urine Glucose COVID-19 Source Nasal/Nares SARS-CoV-2 (PCR) Negative Add-On Test Request Patient ABO/Rh Antibody Screen 04/30/22 04/30/22 04/30/22 06:40 06:40 08:40 WBC 22.45 H RBC 2.43 L Hgb 7.7 L Hct 22.0 L MCV 91 MCH 31.7 MCHC 35.0 RDW 13.2 Plt Count 281 MPV 9.6 Reticulocyte % (Auto) Immature Gran % 0.6 Neutrophils % 85.4 Band Neutrophils % Lymphocytes % 6.8 Monocytes % 6.9 Eosinophils % 0.0 Basophils % 0.3 Nucleated RBC % 0.0 Absolute Neutrophils 19.17 H Absolute Lymphocytes 1.53 Absolute Monocytes 1.55 H Absolute Eosinophils 0.00 Absolute Basophils 0.07 RBC Morphology Normal Polychromasia VBG pH VBG pCO2 VBG pO2 VBG HCO3 VBG Total CO2 VBG O2 Saturation VBG Base Excess VBG Lactate Sodium Potassium Chloride Carbon Dioxide Anion Gap BUN Creatinine Est GFR (CKD-EPI 2020) Glucose Calcium Magnesium Iron TIBC Transferrin % Sat Ferritin Total Bilirubin AST ALT Alkaline Phosphatase Lactate Dehydrogenase Creatine Kinase 1227 H C-Reactive Protein Total Protein Albumin Vitamin B12 Folate Procalcitonin TSH Urine Color Urine Clarity Urine pH Ur Specific [place] Urine Protein Urine Ketones Urine Blood Urine Nitrite Urine Bilirubin Urine Urobilinogen Ur Leukocyte Esterase Urine RBC Urine WBC Ur Epithelial Cells Urine Crystals Urine Bacteria Urine Mucus Ur Culture Indicated? Urine Glucose COVID-19 Source SARS-CoV-2 (PCR) Add-On Test Request Patient ABO/Rh O Positive Antibody Screen NEGATIVE 04/30/22 04/30/22 04/30/22 08:40 08:40 08:40 WBC RBC Hgb 8.1 L Hct 23.0 L MCV MCH MCHC RDW Plt Count MPV Reticulocyte % (Auto) 0.6 Immature Gran % Neutrophils % Band Neutrophils % Lymphocytes % Monocytes % Eosinophils % Basophils % Nucleated RBC % Absolute Neutrophils Absolute Lymphocytes Absolute Monocytes Absolute Eosinophils Absolute Basophils RBC Morphology Polychromasia VBG pH VBG pCO2 VBG pO2 VBG HCO3 VBG Total CO2 VBG O2 Saturation VBG Base Excess VBG Lactate Sodium Potassium Chloride Carbon Dioxide Anion Gap BUN Creatinine Est GFR (CKD-EPI 2020) Glucose Calcium Magnesium Iron 6 L TIBC 121 L Transferrin % Sat 5 L Ferritin Total Bilirubin AST ALT Alkaline Phosphatase Lactate Dehydrogenase Creatine Kinase C-Reactive Protein Total Protein Albumin Vitamin B12 Folate Procalcitonin TSH Urine Color Urine Clarity Urine pH Ur Specific [place] Urine Protein Urine Ketones Urine Blood Urine Nitrite Urine Bilirubin Urine Urobilinogen Ur Leukocyte Esterase Urine RBC Urine WBC Ur Epithelial Cells Urine Crystals Urine Bacteria Urine Mucus Ur Culture Indicated? Urine Glucose COVID-19 Source SARS-CoV-2 (PCR) Add-On Test Request DONE Patient ABO/Rh Antibody Screen 04/30/22 04/30/22 08:40 08:40 WBC RBC Hgb Hct MCV MCH MCHC RDW Plt Count MPV Reticulocyte % (Auto) Cancelled Immature Gran % Neutrophils % Band Neutrophils % Lymphocytes % Monocytes % Eosinophils % Basophils % Nucleated RBC % Absolute Neutrophils Absolute Lymphocytes Absolute Monocytes Absolute Eosinophils Absolute Basophils RBC Morphology Polychromasia VBG pH VBG pCO2 VBG pO2 VBG HCO3 VBG Total CO2 VBG O2 Saturation VBG Base Excess VBG Lactate Sodium Potassium Chloride Carbon Dioxide Anion Gap BUN Creatinine Est GFR (CKD-EPI 2020) Glucose Calcium Magnesium Iron TIBC Transferrin % Sat Ferritin 153 Total Bilirubin AST ALT Alkaline Phosphatase Lactate Dehydrogenase 191 Creatine Kinase C-Reactive Protein Total Protein Albumin Vitamin B12 1481 H Folate 18.4 Procalcitonin TSH Urine Color Urine Clarity Urine pH Ur Specific [place] Urine Protein Urine Ketones Urine Blood Urine Nitrite Urine Bilirubin Urine Urobilinogen Ur Leukocyte Esterase Urine RBC Urine WBC Ur Epithelial Cells Urine Crystals Urine Bacteria Urine Mucus Ur Culture Indicated? Urine Glucose COVID-19 Source SARS-CoV-2 (PCR) Add-On Test Request Patient ABO/Rh Antibody Screen PAWSS Have you Been Recently Intoxicated or Drunk Within the Last 30 days?: No Have you Ever Experienced Previous Episodes of Alcohol Withdrawal?: No Have you ever Experienced Withdrawal Seizures?: No Have you ever Experienced Delirium Tremens(DT)s?: No Have you ever undergone Alcohol Rehabilitation Treatment (i.e, inpt ot outpatient treatment programs)?: No Have you ever Experienced Blackouts?: No Have you ever Combined Alcohol with other Downers within the last 90 days?: No Have you ever Combined Alcohol with any other Substance of Abuse during the last 90 days?: No Positive Blood Alcohol level on Presentation? [PCS.BAL]: No Evidence of Increased Autonomic Activity (i.e. HR>120, tremor, sweating, agitation, nausea)?: No Result: 0 Time Spent with Patient Time Spent with Patient: 25-34 minutes Time was spent: preparing to see the patient(eg.review tests), obtaining and/or reviewing separately otained hiistory, ordering medications,tests, procedures, indepentently interpreting results and counseling the patient
--- NOTE | 2022-04-30 16:57 | CHAPLAIN ---
Thong was resting in bed when I visited. He sister and another family member were visiting. When I introduced myself, Thong asked if I had people from [employer] who could help him out with chores at home, like housekeeping. I explained that I am not connected to a [employer], or those kinds of volunteers and suggested he check with his Contracting Officer.
--- NOTE | 2022-04-30 18:42 | WOUNDCONS_ITS ---
- If Service Date Differs Date of service: 04/30/22 Time of Service: 18:42 Wound Initial Evaluation Narrative: Patient visited at bedside by this publicity writer regarding request for wound consult. Consent signed by patient. History and physical reviewed, laboratory results reviewed and allergies reviewed. Patient is a 76 yo male with previous medical h/o DVT, HTN, hyperlipidemia, chronic anemia and septic arthritis who was admitted for worsening confusion and weakness x 1 month. The patient is being treated for a complicated UTI with bladder obstruction. BMI is 23.7. - Wound Left gluteal fold Wound Type: Partial Thickness Pressure Ulcer Stage: II Wound General Appearance: Well Approximated Wound Bed Greatest Portion: Pale [place] Wound Surrounding Tissue Appearance: Bright Red Wound Length: 1.5 cm Wound Width: 0.4 cm Wound Depth: 0.1 cm Wound Drainage Amount: None Wound Drainage Odor: None/Absent Wound Drainage Description: No drainage Wound Debridement Amount of Tissue Removed: None Gluteal cleft Wound Type: Partial Thickness Pressure Ulcer Stage: II Wound Bed Greatest Portion: Pale [place] Wound Length: 2 cm Wound Width: 1.5 cm Wound Depth: 0.2 cm Wound Drainage Amount: Minimal Wound Drainage Odor: None/Absent Wound Drainage Description: Serous - Circulation, Sensation, Motion Skin Temperature: Warm Skin Color: Normal - Pain Pain Description: Burning Pain Duration/Frequency: Intermittent - Treatment/Dressing Change Topicals/Ointments: Other (Promogran matrix wound dressing) Cleanse With: Saline Dressing Types: Mepilex w/Border - Nutrition Education Reviewed Nutrition Education: Yes - Recomendation Recomendation:: Remove dressing. Cleanse with NS on dampened gauze. Apply skin prep to periwound area. Cut Promogran to size wound and moisten with NS to form gel. Cover wound base with moistened Promogran. Cover with mepilex with border. Change dressing every 3 days and prn. Patient needs Q2 repositioning in bed and Q1 repositioning when in chair. Physcian/Nurse Practioner Notified: Yes (Yazmin Diaz) Referrals: Dietary Treatment Time - Time Total Time Spent with Patient: 45 minutes
[2022-04-30 19:35] VITALS: BP 103/52; PULSE 70; RESP 14; TEMP 36.7; O2SAT 96
[2022-04-30] MEDS: Ferrous Sulfate 325 MG TAB PO (20:07)
[2022-04-30] MEDS: Lactated Ringers 1,000 ML 100 ML IV (20:08)
[2022-04-30] MEDS: Normal Saline Flush 10 ML SYR IVP (20:10)
[2022-05-01] VITALS (8 sets, daily range): BP systolic 86–110; BP diastolic 46–63; PULSE 60–73; RESP 16–18; TEMP 36.1–37.4; O2SAT 95–98
[2022-05-01] MEDS: cefTRIAXone 2 GM/50 ML BAG IVPB (05:33)
[2022-05-01] MEDS: Normal Saline 500 ML 30 ML IV (05:34)
[2022-05-01 06:18] LABS: Abs Immature Grans 0.08 10^3/uL (0.0-0.06); Absolute Basophil Count 0.04 10^3/uL (0.0-0.2); Absolute Eosinophil Count 0.13 10^3/uL (0.0-0.7); Absolute Lymphocyte Count 0.98 10^3/uL (1.2-3.4); Absolute Monocyte Count 1.25 10^3/uL (0.1-0.8); Absolute Neutrophil Count 11.54 10^3/uL (1.2-6.7); Basophils % 0.3; Eosinophils % 0.9; HCT 24.3 % (40.0-50.0); HGB 8.2 g/dL (13.5-17.5); Immature Grans % 0.6; MCH 31.3 pg (27.0-33.0); MCHC 33.7 % (32.0-36.0); MCV 93 fL (80-95); MPV 9.8 fL (8.0-11.0); Monocytes % 8.9; Neutrophils % 82.3; Platelet Count 270 10^3/uL (130-400); RBC 2.62 10^6/uL (4.36-5.78); RDW 13.3 % (11.8-14.1); RDW-SD 45.1 fL; WBC 14.02 10^3/uL (4.4-10.8)
[2022-05-01] MEDS: Lactated Ringers 1,000 ML 100 ML IV ×2 (06:28→16:05)
[2022-05-01 06:43] LABS: ALT 19 U/L (16-63); AST 44 U/L (15-37); Alkaline Phosphatase 110 U/L (46-116); Anion Gap 7.5 mmol/L (3-11); BUN 36 mg/dL (7-18); Bilirubin, Total 0.3 mg/dL (0.2-1.0); CO2 25.5 mmol/L (21.0-32.0); CREATININE 1.5 mg/dL (0.70-1.30); Calcium 8.4 mg/dL (8.5-10.1); Chloride 106 mmol/L (98-107); Creatine Kinase 506 U/L (39-308); Estimated GFR 48.25 (mL/min/1.73m2); Glucose 107 mg/dL (74-106); Potassium 3.5 mmol/L (3.5-5.1); Sodium 139 mmol/L (136-145); Total Protein 5.6 g/dL (6.4-8.2)
[2022-05-01] MEDS: Ferrous Sulfate 325 MG TAB PO ×2 (09:50→20:23)
--- NOTE | 2022-05-01 11:46 | PT.INTREAT ---
Date of service: 05/01/22 Time of Service: 09:35 PT Notes Visit Reasons: Sepsis Due to a Complicated UTI,B Hydronephrosis Inpatient Physical Therapy Treatment Note [facility] Date: 05/01/2022 PRECAUTIONS: Fall, Activity as tolerated SUBJECTIVE: Thong is agreeable to participating in PT. He reports that he does not like to use the FWW, but prefers his 4WW that he uses at home. He is hoping a family member will bring it in for him to use while he is here. OBJECTIVE: PAIN: Patient c/o B LE pain to touch BED MOBILITY/TRANSFERS Sit-stand: SBA Stand-sit: SBA GAIT Assistive Device: FWW Weight bearing: Full Assist: SBA Distance: 6' Deviation: Slow pacing, short step height and length TOILETING: Patient toileted with assist ASSESSMENT: Patient tolerated session with c/o pain in B LE to touch. He was able to tolerate gait training with use of FWW support and with SBA. He demonstrates global weakness and limited activity tolerance. PLAN: Continue with global strengthening, gait and transfer training for improved mobility and activity tolerance. TREATMENT CODE/TIME: Session 1: 30 minutes; 41729 x2 (09:35) Session 2: 15 minutes; no charge - patient declined participation
[2022-05-01] MEDS: Acetaminophen 325 MG TAB PO (13:04)
[2022-05-01] MEDS: Normal Saline Flush 10 ML SYR IVP (13:09)
--- NOTE | 2022-05-01 13:18 | UCONE_ITS ---
Date of service: 05/01/22 Time of Service: 13:18 Assessment and Plan Assessment and plan (1) Bilateral hydronephrosis: Status: Acute Assessment and plan: From my previous interactions with this patient, he tells me that he will not take medications chronically, so medical management does not seem to be a possibility Typically, when patients get to the point where we see obstructive uropathy, we generally recommend either chronic catheter drainage or surgical treatment. Our preference for chronic catheter drainage is clean intermittent catheterization, but from my interaction with this patient and his overall strength, I do not believe he would be able to keep up with CIC. Our other chronic catheter drainage options would be a chronic indwelling urethral catheter or chronic suprapubic tube. Both of these have a higher risk of infection and urosepsis than the CIC option. If he wants to consider a surgical treatment, given the size of his prostate, I would suspect he would need an open procedure (simple retropubic prostatectomy). Endoscopic treatments such as a holmium laser enucleation of the prostate could be offered, but he would need to have the procedure done at another facility that has this technology. Once his infection has cleared completely he will still need a cystoscopy as we are not sure that all of the tissue at the bladder base is from his prostate or if any of it might be related to a separate bladder tumor. History of Present Illness History of Present Illness Chief Complaint: Obstructive uropathy Narrative: This is a 76-year-old gentleman who was seen in my office last week. He has a history of a large inguinal hernia. During his hernia repair, he was found to have over 2 L of urine in his bladder. A Vega catheter was placed and he was started on tamsulosin. A [id number] ultrasound at that point raise the possibility of a bladder mass. The mass may actually have been a component of his enlarged prostate jutting back into the bladder. When I saw the patient in the office, we gave him a voiding trial. We rescanned him that afternoon and his bladder was not very full. We did not replace his Vega catheter at that time. We arranged for a cystoscopy to be done in the office. Later in the week, we were contacted and told that the patient was having incontinent episodes. It sounded like he had overflow incontinence and we suggested that he come into the office so that we could scan him and replace his Vega. The patient refused and also refused to go into the emergency department. He told our office staff that he would not agree to having a Vega back in place and he was not going to take any medications. The patient was brought to the emergency department by his family on 04/29/2022 with mental status changes. He was found to be in urinary retention with bilateral hydronephrosis on CT scan. He has positive urine and blood cultures. He currently has an indwelling catheter and is on IV antibiotics awaiting his final culture and sensitivity results. [facility] All Active Problems (Updated 04/30/22 @ 03:20 by Dee Chowdhury MD) Bilateral lower extremity edema (Acute) Toxic metabolic encephalopathy (Acute) Discharge planning issues (Acute) ELINA (acute kidney injury) (Acute) DVT prophylaxis (Acute) Bilateral hydronephrosis (Acute) Complicated UTI (urinary tract infection) (Acute) Sepsis (Acute) Acute UTI (Acute) History of urinary retention (Acute) Bandemia (Acute) Prostatic hypertrophy (Chronic) Mass of urinary bladder determined by ultrasound (Acute) Urinary retention with incomplete bladder emptying (Acute) Urinary retention due to benign prostatic hyperplasia (Acute) BPH (benign prostatic hyperplasia) (Chronic) Essential hypertension (Acute) Rectal/anal hemorrhage (Acute) Skin lesion (Acute) Gastric polyp (Acute) Normal colonoscopy (Acute) Mass of left upper extremity (Acute) [facility] 2inch diameter fungating bleeding mass upper left extremity. Bacteremia (Acute) Post surgical complication (Acute) Unilateral inguinal hernia without obstruction or gangrene (Acute) Basal cell carcinoma of upper extremity (Acute) Medical History DVT (deep venous thrombosis) Elevated PSA Hyperlipidemia Hypertension Osteoarthritis, hip, bilateral Problem related to housing and economic circumstances Seborrheic dermatitis Septic arthritis Urinary retention Surgical History History of colonoscopy (~09/2021) History of esophagogastroduodenoscopy (EGD) (~09/2021) Unilateral inguinal hernia with mesh per pt. Right side per patient Social History Smoking/Tobacco Use Status: Never Smoking risk assessment performed?: Yes Alcohol Intake: current Alcohol Intake frequency: a few times a month Alcohol type: wine Drug use: Never Substance use type: does not use Current gender identity: male Do you feel safe at home: Yes Do you feel safe in your relationship?: Yes Additional Social history: lives alone Exam Narrative Exam Narrative: Not done-patient sleeping and I did not awaken him Urine clear in catheter drainage bag Serum creatinine returning back toward baseline I reviewed the patient's CT scan on the PACS system. He does have a markedly enlarged prostate, some of which impinges and extends into the bladder. His bladder was distended and there was bilateral hydronephrosis and hydroureter before his Vega catheter was placed. Results Last Vital Signs Temp 36.1 C L 05/01/22 11:20 Pulse 60 05/01/22 11:20 Resp 16 05/01/22 11:20 BP 110/56 L 05/01/22 11:25 Pulse Ox 98 05/01/22 11:20 Labs Result diagrams: 05/01/22 05:58 05/01/22 05:58 Labs: Laboratory Results - last 24 hr 05/01/22 05/01/22 05:58 05:58 WBC 14.02 H RBC 2.62 L Hgb 8.2 L Hct 24.3 L MCV 93 MCH 31.3 MCHC 33.7 RDW 13.3 Plt Count 270 MPV 9.8 Immature Gran % 0.6 Neutrophils % 82.3 Lymphocytes % 7.0 Monocytes % 8.9 Eosinophils % 0.9 Basophils % 0.3 Nucleated RBC % 0.0 Absolute Neutrophils 11.54 H Absolute Lymphocytes 0.98 L Absolute Monocytes 1.25 H Absolute Eosinophils 0.13 Absolute Basophils 0.04 Sodium 139 Potassium 3.5 Chloride 106 Carbon Dioxide 25.5 Anion Gap 7.5 BUN 36 H Creatinine 1.5 H Est GFR (CKD-EPI 2020) 48.25 Glucose 107 H Calcium 8.4 L Total Bilirubin 0.3 AST 44 H ALT 19 Alkaline Phosphatase 110 Creatine Kinase 506 H Total Protein 5.6 L Albumin 2.0 L
--- NOTE | 2022-05-01 14:50 | PDOC.CMPRO ---
- If Service Date Differs Date of service: 05/01/22 Time of Service: 14:50 Care Management Progress Note S/O: Thong continues to require monitoring and IV abx. Per pt, he would prefer his personal 4WW, however his closest family member lives in [facility] [place] [facility] and is unable to bring it to the hospital. Thong is agreeable to SNF for STR. Referral's are sent to SNF facilities contracted through the [place]. Per pt, he's been to [facility] in the past and had a positive experience. CM spoke with Opal from [facility], they can offer Thong a safety home assessment which may qualify him for home modifications like a ramp, grab bars, shower chair etc. CM will follow. A: 76 year old male admitted to [facility] on 04/29/22 for Sepsis due to complicated UTI. P: Thong requires close monitoring and treatment with IV ABX. He is working with PT and they recommend SNF for STR vs. Home with Resumption of [facility] RN/PT/OT services. Pt is agreeable to SNF for STR, and referrals are sent to STR with [place] contracts. Transportation will be dependent on disposition. CM will follow.
[2022-05-01] MEDS: Milk of Magnesia 30 ML CUP PO (16:49)
[2022-05-01] MEDS: Docusate Sodium 100 MG CAP PO (16:49)
--- NOTE | 2022-05-01 18:02 | PGE_ITS ---
Date of Service Date of service: 05/01/22 Time of Service: 12:00 Assessment and Plan Assessment and plan (1) Complicated UTI (urinary tract infection): Status: Acute Assessment and plan: As above (2) Bilateral hydronephrosis: Status: Acute Assessment and plan: As above carmona placed (3) Toxic metabolic encephalopathy: Status: Resolved Assessment and plan: Alert oriented x3, conversant, pleasant (4) Bilateral lower extremity edema: Status: Acute Assessment and plan: echo pending - completes but not read no DVT bilaterally (5) ELINA (acute kidney injury): Status: Acute Assessment and plan: Suspect this is combination of pre and post-renal injury; cannot rule out intrinsic injury. Treat infection. S/p carmona. IVF. Doubt that CPK in 800s would cause ELINA. Not technically in the rhabdomyolysis range. Repeat CPK in am. (6) Prostatic hypertrophy: Status: Chronic Assessment and plan: As above Per Dr Wallis's note, had a previously elevated PSA. Given acute UTI, now is not the time to recheck PSA. Will require outpatient f/u. (7) History of urinary retention: Status: Acute Assessment and plan: s/p carmona (8) Mass of urinary bladder determined by ultrasound: Status: Acute Assessment and plan: The patient was being planned for an outpatient cystoscopy by Dr Wallis. F/u as outpatient. (9) DVT prophylaxis: Status: Acute Assessment and plan: SC heparin (10) Discharge planning issues: Status: Acute Assessment and plan: Full code C/s PT. discussed with Dr Cruz Subjective Subjective Patient reports: no new complaints Exam Const General: cooperative, comfortable, frail appearing and ill appearing chronically Nutritional Appearance: thin Orientation: alert, awake and oriented x3 HENMT Head: normal to inspection, normocephalic and atraumatic Mouth: oral mucosae normal Resp Effort & Inspection: normal respiratory effort Auscultation: clear to auscultation bilaterally and diminished lung sounds Cardio Rate: regular rate Rhythm: regular rhythm General: other (Carmona catheter draining concentrated urine) Skin Lesions: lesion noted (Pressure to buttocks and hips see wound care consult and imaging) Rashes: no rashes Neuro General: patient alert, patient awake and patient oriented x3 Objective Last Vital Signs Temp 37.4 C 05/01/22 15:10 Pulse 62 05/01/22 15:10 Resp 17 05/01/22 15:10 BP 98/56 L 05/01/22 15:10 Pulse Ox 97 05/01/22 15:10 Laboratory Results - last 24 hr 05/01/22 05/01/22 05:58 05:58 WBC 14.02 H RBC 2.62 L Hgb 8.2 L Hct 24.3 L MCV 93 MCH 31.3 MCHC 33.7 RDW 13.3 Plt Count 270 MPV 9.8 Immature Gran % 0.6 Neutrophils % 82.3 Lymphocytes % 7.0 Monocytes % 8.9 Eosinophils % 0.9 Basophils % 0.3 Nucleated RBC % 0.0 Absolute Neutrophils 11.54 H Absolute Lymphocytes 0.98 L Absolute Monocytes 1.25 H Absolute Eosinophils 0.13 Absolute Basophils 0.04 Sodium 139 Potassium 3.5 Chloride 106 Carbon Dioxide 25.5 Anion Gap 7.5 BUN 36 H Creatinine 1.5 H Est GFR (CKD-EPI 2020) 48.25 Glucose 107 H Calcium 8.4 L Total Bilirubin 0.3 AST 44 H ALT 19 Alkaline Phosphatase 110 Creatine Kinase 506 H Total Protein 5.6 L Albumin 2.0 L PAWSS Have you Been Recently Intoxicated or Drunk Within the Last 30 days?: No Have you Ever Experienced Previous Episodes of Alcohol Withdrawal?: No Have you ever Experienced Withdrawal Seizures?: No Have you ever Experienced Delirium Tremens(DT)s?: No Have you ever undergone Alcohol Rehabilitation Treatment (i.e, inpt ot outpatient treatment programs)?: No Have you ever Experienced Blackouts?: No Have you ever Combined Alcohol with other Downers within the last 90 days?: No Have you ever Combined Alcohol with any other Substance of Abuse during the last 90 days?: No Positive Blood Alcohol level on Presentation? [PCS.BAL]: No Evidence of Increased Autonomic Activity (i.e. HR>120, tremor, sweating, agitation, nausea)?: No Result: 0 Time Spent with Patient Time Spent with Patient: 25-34 minutes Time was spent: preparing to see the patient(eg.review tests), obtaining and/or reviewing separately otained hiistory, ordering medications,tests, procedures, referring, communicating with other health housekeeper caregiver, indepentently interpreting results, counseling the patient and care coordination
[2022-05-02] MEDS: Lactated Ringers 1,000 ML 100 ML IV (02:12)
[2022-05-02 03:56] VITALS: BP 121/64; PULSE 63; RESP 17; TEMP 36.6; O2SAT 94
[2022-05-02] MEDS: cefTRIAXone 2 GM/50 ML BAG IVPB (05:31)
[2022-05-02] MEDS: Normal Saline Flush 10 ML SYR IVP ×2 (05:31→19:54)
[2022-05-02 06:08] LABS: Abs Immature Grans 0.05 10^3/uL (0.0-0.06); Absolute Basophil Count 0.05 10^3/uL (0.0-0.2); Absolute Monocyte Count 0.96 10^3/uL (0.1-0.8); Basophils % 0.4; Eosinophils % 0.2; Immature Grans % 0.4; Lymphocytes % 10.3; MCH 31.3 pg (27.0-33.0); MCHC 33.3 % (32.0-36.0); MCV 94 fL (80-95); MPV 9.6 fL (8.0-11.0); Monocytes % 7.6; Neutrophils % 81.1; Platelet Count 291 10^3/uL (130-400); RBC 2.88 10^6/uL (4.36-5.78); RDW 13.2 % (11.8-14.1); RDW-SD 45.8 fL; WBC 12.65 10^3/uL (4.4-10.8)
[2022-05-02 06:10] LABS: Absolute Eosinophil Count 0.03 10^3/uL (0.0-0.7); Absolute Neutrophil Count 10.26 10^3/uL (1.2-6.7)
[2022-05-02 06:34] LABS: Anion Gap 8.4 mmol/L (3-11); BUN 23 mg/dL (7-18); CO2 26.6 mmol/L (21.0-32.0); CREATININE 1.3 mg/dL (0.70-1.30); Calcium 8.5 mg/dL (8.5-10.1); Chloride 106 mmol/L (98-107); Estimated GFR 57.29 (mL/min/1.73m2); Glucose 105 mg/dL (74-106); Magnesium 1.8 mg/dL (1.8-2.4); Sodium 141 mmol/L (136-145)
[2022-05-02 06:37] VITALS: BP 96/53; PULSE 61; RESP 16; TEMP 36.4; O2SAT 97
[2022-05-02] MEDS: Ferrous Sulfate 325 MG TAB PO ×2 (08:42→19:54)
--- NOTE | 2022-05-02 08:57 | OT.INIE ---
Occupational Therapy Notes Inpatient Occupational Therapy Evaluation Date: 05/02/22 Referring Doctor: Marcie Mayers NP OT Orders: Non Urgent Precautions: Fall, Standard, Full PATIENT PROFILE/ADMITTING DIAGNOSIS: Pt is a 76 year old male admitted with the following dx of PMHx of BPH, bladder, mass,? urinary retention s/p removal of carmona catheter on 04/21/22, DVT, hypertension, hyperlipidemia, septic arthritis in the past, chronic anemia and dx with sepsis and complicated UTI, and admitted for medical management. Past Medical History: All Active Problems?(Updated 04/30/22 @ 03:20 by Dee Chowdhury MD) Bilateral lower extremity edema (Acute) Toxic metabolic encephalopathy (Acute) Discharge planning issues (Acute) ELINA (acute kidney injury) (Acute) DVT prophylaxis (Acute) Bilateral hydronephrosis (Acute) Complicated UTI (urinary tract infection) (Acute) Sepsis (Acute) Acute UTI (Acute) History of urinary retention (Acute) Bandemia (Acute) Prostatic hypertrophy (Chronic) Mass of urinary bladder determined by ultrasound (Acute) Urinary retention with incomplete bladder emptying (Acute) Urinary retention due to benign prostatic hyperplasia (Acute) BPH (benign prostatic hyperplasia) (Chronic) Essential hypertension (Acute) Rectal/anal hemorrhage (Acute) Skin lesion (Acute) Gastric polyp (Acute) Normal colonoscopy (Acute) Mass of left upper extremity (Acute) [facility] 2inch diameter fungating bleeding mass upper left extremity.Bacteremia (Acute) Post surgical complication (Acute) Unilateral inguinal hernia without obstruction or gangrene (Acute) Basal cell carcinoma of upper extremity (Acute) Medical History? DVT (deep venous thrombosis) Elevated PSA Hyperlipidemia Hypertension Osteoarthritis, hip, bilateral Problem related to housing and economic circumstances Seborrheic dermatitis Septic arthritis Urinary retention Surgical History? History of colonoscopy (~09/2021) History of esophagogastroduodenoscopy (EGD) (~09/2021) Unilateral inguinal hernia with mesh per pt. Right side per patient Social History/Home Situation: Pt states that he lives alone in [facility]. He states that he is working with the [facility] and notes that he needs (A) with his ADL/IADL routines. Pt notes that he was getting (A) from . He does states that he has children which he does not speak with. He describes his family life as complicated. He notes that he cannot perform his LE dressing and bathing without (A). Equipment owned/DME: grab bars, FWW SUBJECTIVE: Pt states that he has a lot of outside stressors. He notes that he needs to go home to pay his bills. He feels like he needs times to be able get his personal stuff taken care of. OBJECTIVE: General Observation: Pleasant and agreeable to OT session Mental Status: A&Ox3 Pain: c/o pain in abdomen and LE with forward bending ROM: RUE AROM WFL L UE AROM WFL STRENGTH: RUE 4/5 throughout LUE 4/5 throughout FUNCTIONAL MOBILITY/ADLS: OT and pt assess pts functional (I) with AROM and seated ADLs. EATING seated in chair (I) with hand to mouth and use of silverware BALANCE: Static sitting Normal Dynamic Sitting Normal SPECIAL TESTS: Daily Activity Limitations Standardized Measure [facility] AM -PAC ?6 clicks? Daily Activity Inpatient Short Form: Raw score: 19 Standardized score: 40.22 CMS score: 42.80% INFORMED CONSENT/EDUCATION: Pt instructed in purpose of OT Consult and plan of care. ASSESSMENT: Patient is a 76-year-old male referred to occupational therapy services with diagnosis of PMHx of BPH, bladder, mass,? urinary retention s/p removal of carmona catheter on 04/21/22, DVT, hypertension, hyperlipidemia, septic arthritis in the past, chronic anemia and dx with sepsis and complicated UTI, and admitted for medical management.. Patient presents with clinical signs and symptoms consistent with dx, as demonstrated by the following impairment level findings/functional limitations: Impairments in LE dressing and bathing due to pain, pain in abdomen, decreased functional activity tolerance, impairments in LE mobility, decreased functional mobility required for ADL performance. AMPAC score 19 Patient is assessed as a Moderate 25439 complexity based on the following: History: see above Examination: see functional limitations as noted above Presentation: evolving Decision Making: AMPAC score 19 GOALS Goals x1 week 1. Oral hygiene seated pt will be (I) 2. Dressing seated mod (I) 3. Bathing seated (I) UE, min (A) LE 4. Toileting on toilet (I) 5. Eating (I) PLAN OF CARE/TREATMENT PLAN: 1x/day, 5 days/ week x 1week Initiate Occupational Therapy Services for bathing, dressing, grooming, toileting, eating, transfer training. DISCHARGE RECOMMENDATIONS OT recommends that pt go to SNF vs. home with continued and increased TREATMENT TIME/MINUTES/CODES 89398, 25 minutes (08:15) Megan Navarro OTR/[facility]
--- NOTE | 2022-05-02 09:23 | PDOC.CMPRO ---
- If Service Date Differs Date of service: 05/02/22 Time of Service: 09:23 Care Management Progress Note S/O: Thong is sitting in his recliner when CM met with him. He is awake and easy to engage in conversation. He has a bed offer at [facility] for Thursday, which he accepts. He wondered if his room would be private or shared? Per Katelyn, his room will be shared since his payer source does not cover a private room which he is ok with. Also he likes to eat healthy so the facility is sending him a menu. Anticipate, Thong will remain at [facility] through the weekend with a plan to discharge to [facility] on Thursday, if medically ready. A: 76 year old male admitted to [facility] on 04/29/22 for Sepsis due to complicated UTI. P: Thong requires close monitoring and treatment with IV ABX. He is working with PT and they recommend SNF for STR vs. Home with Resumption of [facility] RN/PT/OT services. Pt is agreeable to SNF for STR, and referrals are sent. Transportation will be dependent on disposition. CM will follow.
--- NOTE | 2022-05-02 10:35 | PT.INTREAT ---
PT Notes Visit Reasons: Sepsis Due to a Complicated UTI,B Hydronephrosis Date: 05/02/2022 PRECAUTIONS: Fall, Activity as tolerated SUBJECTIVE: Pt in WC when approached for therapy this morning, Pt just got back from a shower and reports that he is feeling good and refreshed, pt initially showing resistance with participating with therapy but was able to warm up to this therapist after a few minutes of conversation. OBJECTIVE:? PAIN: generalized pain on BLE and genital area per urinary catheter. ? BED MOBILITY/TRANSFERS? Sit-stand: SBA? Stand-sit: SBA? Static standing weight shifting L/R, Front/back 15mins supervision FWW? GAIT? Assistive Device: FWW? Weight bearing: Full Assist: SBA ? Distance:? 20'x2 ? Deviation: Slow pacing, short step height and length Therapeutic procedures 67787: Instruction in therapeutic exercises to develop strength and endurance, range of motion and flexibility. standing may till fatigue, SSH [id number], Heel raises [id number], toe raises [id number], partial squats [id number], standing hip circumduction [id number] ASSESSMENT:? Pt tolerated activity well, pt transfers going in bed to allow for nurse to replace sacral pad and transfers going to recliner post pad replacement per pt request. PLAN: Continue with global strengthening, gait and transfer training for improved mobility and activity tolerance. TREATMENT CODE/TIME: Session 1: 38 minutes; [id number], [id number] x2 (09:20am) ?
[2022-05-02 11:26] VITALS: BP 111/64; PULSE 70; RESP 14; TEMP 36; O2SAT 98
[2022-05-02 11:56] LABS: Lab Add On Test DONE
[2022-05-02 12:21] LABS: Creatine Kinase 235 U/L (39-308)
[2022-05-02 12:30] LABS: Haptoglobin 242 mg/dL (32-197)
[2022-05-02 15:12] VITALS: BP 120/64; PULSE 64; RESP 14; TEMP 36.5; O2SAT 98
--- NOTE | 2022-05-02 17:57 | PGE_ITS ---
Date of Service Date of service: 05/02/22 Time of Service: 17:57 Assessment and Plan Assessment and plan (1) Complicated UTI (urinary tract infection): Status: Acute Assessment and plan: As above (2) Bilateral hydronephrosis: Status: Acute Assessment and plan: As above carmona draining clear yellow urine (3) Toxic metabolic encephalopathy: Status: Resolved Assessment and plan: Alert oriented x3, conversant, pleasant (4) Bilateral lower extremity edema: Status: Acute Assessment and plan: echo: Technically limited with poor spatial resolution LV size and systolic fxn NL No wall motion abn RV NL Mild aortic regurgitation Ascending aorta is mildly dilated EF 59% no DVT bilaterally (5) ELINA (acute kidney injury): Status: Acute Assessment and plan: Suspect this is combination of pre and post-renal injury; cannot rule out intrinsic injury. Treat infection. S/p carmona. IVF discontinued CK 235 (6) Prostatic hypertrophy: Status: Chronic Assessment and plan: As above Per Dr Wallis's note, had a previously elevated PSA. Given acute UTI, now is not the time to recheck PSA. Will require outpatient f/u. (7) History of urinary retention: Status: Acute Assessment and plan: s/p carmona (8) Mass of urinary bladder determined by ultrasound: Status: Acute Assessment and plan: Followed by Dr Wallis. F/u as outpatient. (9) DVT prophylaxis: Status: Acute Assessment and plan: SC heparin (10) Discharge planning issues: Status: Acute Assessment and plan: Full code C/s PT. discussed with Dr Cruz Subjective Subjective Patient reports: no new complaints Exam Const General: cooperative, comfortable, frail appearing and ill appearing chronically Nutritional Appearance: thin Orientation: alert, awake and oriented x3 HENMT Head: normal to inspection, normocephalic and atraumatic Mouth: oral mucosae normal Resp Effort & Inspection: normal respiratory effort Auscultation: clear to auscultation bilaterally and diminished lung sounds Cardio Rate: regular rate Rhythm: regular rhythm General: other (Carmona catheter draining without issue) Skin Lesions: lesion noted (Pressure to buttocks and hips see wound care consult and imaging) Rashes: no rashes Neuro General: patient alert, patient awake and patient oriented x3 Objective Last Vital Signs Temp 36.5 C 05/02/22 15:12 Pulse 64 05/02/22 15:12 Resp 14 05/02/22 15:12 BP 120/64 05/02/22 15:12 Pulse Ox 98 05/02/22 15:12 Laboratory Results - last 24 hr 04/30/22 05/02/22 05/02/22 08:40 06:04 06:04 WBC 12.65 H RBC 2.88 L Hgb 9.0 L Hct 27.0 L MCV 94 MCH 31.3 MCHC 33.3 RDW 13.2 Plt Count 291 MPV 9.6 Immature Gran % 0.4 Neutrophils % 81.1 Lymphocytes % 10.3 Monocytes % 7.6 Eosinophils % 0.2 Basophils % 0.4 Nucleated RBC % 0.0 Absolute Neutrophils 10.26 H Absolute Lymphocytes 1.30 Absolute Monocytes 0.96 H Absolute Eosinophils 0.03 Absolute Basophils 0.05 Haptoglobin 242 H Sodium 141 Potassium 4.0 Chloride 106 Carbon Dioxide 26.6 Anion Gap 8.4 BUN 23 H Creatinine 1.3 Est GFR (CKD-EPI 2020) 57.29 Glucose 105 Calcium 8.5 Magnesium 1.8 Creatine Kinase Add-On Test Request 05/02/22 05/02/22 06:04 06:04 WBC RBC Hgb Hct MCV MCH MCHC RDW Plt Count MPV Immature Gran % Neutrophils % Lymphocytes % Monocytes % Eosinophils % Basophils % Nucleated RBC % Absolute Neutrophils Absolute Lymphocytes Absolute Monocytes Absolute Eosinophils Absolute Basophils Haptoglobin Sodium Potassium Chloride Carbon Dioxide Anion Gap BUN Creatinine Est GFR (CKD-EPI 2020) Glucose Calcium Magnesium Creatine Kinase 235 Add-On Test Request DONE PAWSS Have you Been Recently Intoxicated or Drunk Within the Last 30 days?: No Have you Ever Experienced Previous Episodes of Alcohol Withdrawal?: No Have you ever Experienced Withdrawal Seizures?: No Have you ever Experienced Delirium Tremens(DT)s?: No Have you ever undergone Alcohol Rehabilitation Treatment (i.e, inpt ot outpatient treatment programs)?: No Have you ever Experienced Blackouts?: No Have you ever Combined Alcohol with other Downers within the last 90 days?: No Have you ever Combined Alcohol with any other Substance of Abuse during the last 90 days?: No Positive Blood Alcohol level on Presentation? [PCS.BAL]: No Evidence of Increased Autonomic Activity (i.e. HR>120, tremor, sweating, agitation, nausea)?: No Result: 0 Time Spent with Patient Time Spent with Patient: 25-34 minutes Time was spent: preparing to see the patient(eg.review tests), obtaining and/or reviewing separately otained hiistory, ordering medications,tests, procedures, referring, communicating with other health patient care nursing assistant, indepentently interpreting results, counseling the patient and care coordination
[2022-05-02 19:39] VITALS: BP 119/65; PULSE 63; RESP 16; TEMP 36.3; O2SAT 97
[2022-05-02 23:04] VITALS: BP 120/65; PULSE 65; RESP 16; TEMP 36.9; O2SAT 96
[2022-05-03 04:01] VITALS: BP 124/68; PULSE 55; RESP 19; TEMP 37; O2SAT 95
[2022-05-03] MEDS: cefTRIAXone 2 GM/50 ML BAG IVPB (05:45)
[2022-05-03 06:10] LABS: Abs Immature Grans 0.05 10^3/uL (0.0-0.06); Absolute Eosinophil Count 0.02 10^3/uL (0.0-0.7); Absolute Lymphocyte Count 1.27 10^3/uL (1.2-3.4); Absolute Monocyte Count 0.86 10^3/uL (0.1-0.8); Absolute Neutrophil Count 8.73 10^3/uL (1.2-6.7); Basophils % 0.5; Eosinophils % 0.2; HCT 25.7 % (40.0-50.0); HGB 8.6 g/dL (13.5-17.5); Immature Grans % 0.5; Lymphocytes % 11.6; MCH 31.2 pg (27.0-33.0); MCHC 33.5 % (32.0-36.0); MCV 93 fL (80-95); Monocytes % 7.8; Neutrophils % 79.4; Platelet Count 294 10^3/uL (130-400); RBC 2.76 10^6/uL (4.36-5.78); RDW 13.5 % (11.8-14.1); WBC 10.99 10^3/uL (4.4-10.8)
[2022-05-03 06:16] LABS: Absolute Basophil Count 0.05 10^3/uL (0.0-0.2)
[2022-05-03 06:39] LABS: Anion Gap 5.2 mmol/L (3-11); BUN 18 mg/dL (7-18); CO2 28.8 mmol/L (21.0-32.0); CREATININE 1.3 mg/dL (0.70-1.30); Calcium 8.5 mg/dL (8.5-10.1); Chloride 108 mmol/L (98-107); Estimated GFR 57.29 (mL/min/1.73m2); Glucose 97 mg/dL (74-106); Potassium 3.9 mmol/L (3.5-5.1); Sodium 142 mmol/L (136-145)
[2022-05-03 07:01] VITALS: BP 100/44; PULSE 65; RESP 16; TEMP 36.8; O2SAT 97
[2022-05-03] MEDS: Ferrous Sulfate 325 MG TAB PO ×2 (08:27→20:13)
--- NOTE | 2022-05-03 10:04 | PGE_ITS ---
Date of Service Date of service: 05/03/22 Time of Service: 10:04 Assessment and Plan Assessment and plan (1) Complicated UTI (urinary tract infection): Status: Acute Assessment and plan: As above (2) Bilateral hydronephrosis: Status: Resolved Assessment and plan: As above carmona draining clear yellow urine (3) Toxic metabolic encephalopathy: Status: Resolved Assessment and plan: Alert oriented x3, conversant, pleasant (4) Bilateral lower extremity edema: Status: Acute Assessment and plan: echo: Technically limited with poor spatial resolution LV size and systolic fxn NL No wall motion abn RV NL Mild aortic regurgitation Ascending aorta is mildly dilated EF 59% no DVT bilaterally 1+ BLE pedal edema (5) ELINA (acute kidney injury): Status: Resolved Assessment and plan: Suspect this is combination of pre and post-renal injury; cannot rule out intrinsic injury. Treat infection. S/p carmona. BUN and creat now 18 and 1.3 (6) Prostatic hypertrophy: Status: Chronic Assessment and plan: As above Per Dr Wallis's note, had a previously elevated PSA. Given acute UTI, now is not the time to recheck PSA. Will require outpatient f/u. (7) History of urinary retention: Status: Resolved Assessment and plan: s/p carmona (8) Mass of urinary bladder determined by ultrasound: Status: Acute Assessment and plan: Followed by Dr Wallis. F/u as outpatient. (9) DVT prophylaxis: Status: Acute Assessment and plan: SC heparin (10) Discharge planning issues: Status: Acute Assessment and plan: Full code C/s PT. [facility] Thursday - will need Covid test discussed with Dr Ambrocio Subjective Subjective Patient reports: no new complaints, tolerating a regular diet, no bowel movement and afebrile; denies diarrhea, blood in stool, nausea, vomiting, shortness of breath or fever Interval history since last seen: Up in the chair, engaged in conversation, pleasant, agreeable to SNF Exam Const General: cooperative, comfortable, frail appearing and ill appearing chronically Nutritional Appearance: thin Orientation: alert, awake and oriented x3 HENMT Head: normal to inspection, normocephalic and atraumatic Mouth: oral mucosae normal Resp Effort & Inspection: normal respiratory effort Auscultation: clear to auscultation bilaterally and diminished lung sounds Cardio Rate: regular rate Rhythm: regular rhythm General: other (Carmona catheter draining without issue) Skin Lesions: lesion noted (Pressure to buttocks and hips see wound care consult and imaging) Rashes: no rashes Neuro General: patient alert, patient awake and patient oriented x3 Objective Last Vital Signs Temp 36.8 C 05/03/22 07:01 Pulse 65 05/03/22 07:01 Resp 16 05/03/22 07:01 BP 100/44 L 05/03/22 07:01 Pulse Ox 97 05/03/22 07:01 Laboratory Results - last 24 hr 04/30/22 05/02/22 05/02/22 08:40 06:04 06:04 WBC RBC Hgb Hct MCV MCH MCHC RDW Plt Count MPV Immature Gran % Neutrophils % Lymphocytes % Monocytes % Eosinophils % Basophils % Nucleated RBC % Absolute Neutrophils Absolute Lymphocytes Absolute Monocytes Absolute Eosinophils Absolute Basophils Haptoglobin 242 H Sodium Potassium Chloride Carbon Dioxide Anion Gap BUN Creatinine Est GFR (CKD-EPI 2020) Glucose Calcium Magnesium Creatine Kinase 235 Add-On Test Request DONE 05/03/22 05/03/22 05:45 05:45 WBC 10.99 H RBC 2.76 L Hgb 8.6 L Hct 25.7 L MCV 93 MCH 31.2 MCHC 33.5 RDW 13.5 Plt Count 294 MPV 10.0 Immature Gran % 0.5 Neutrophils % 79.4 Lymphocytes % 11.6 Monocytes % 7.8 Eosinophils % 0.2 Basophils % 0.5 Nucleated RBC % 0.0 Absolute Neutrophils 8.73 H Absolute Lymphocytes 1.27 Absolute Monocytes 0.86 H Absolute Eosinophils 0.02 Absolute Basophils 0.05 Haptoglobin Sodium 142 Potassium 3.9 Chloride 108 H Carbon Dioxide 28.8 Anion Gap 5.2 BUN 18 Creatinine 1.3 Est GFR (CKD-EPI 2020) 57.29 Glucose 97 Calcium 8.5 Magnesium 2.0 Creatine Kinase Add-On Test Request PAWSS Have you Been Recently Intoxicated or Drunk Within the Last 30 days?: No Have you Ever Experienced Previous Episodes of Alcohol Withdrawal?: No Have you ever Experienced Withdrawal Seizures?: No Have you ever Experienced Delirium Tremens(DT)s?: No Have you ever undergone [facility]: No Have you ever Experienced Blackouts?: No Have you ever Combined Alcohol with other Downers within the last 90 days?: No Have you ever Combined Alcohol with any other Substance of Abuse during the last 90 days?: No Positive Blood Alcohol level on Presentation? [PCS.BAL]: No Evidence of Increased Autonomic Activity (i.e. HR>120, tremor, sweating, agitation, nausea)?: No Result: 0 Time Spent with Patient Time Spent with Patient: 25-34 minutes Time was spent: preparing to see the patient(eg.review tests), obtaining and/or reviewing separately otained hiistory, ordering medications,tests, procedures, referring, communicating with other health vocational childcare teacher, indepentently interpreting results, counseling the patient and care coordination
--- NOTE | 2022-05-03 10:31 | PT.INNT ---
PT Notes Visit Reasons: Sepsis Due to a Complicated UTI,B Hydronephrosis Pt approached 4x during the course of the morning but was refused at all attempts to engage pt with therapy.
[2022-05-03 15:20] VITALS: BP 106/58; PULSE 57; RESP 16; TEMP 36.5; O2SAT 94
[2022-05-03 19:52] VITALS: BP 118/64; PULSE 57; RESP 16; TEMP 36.1; O2SAT 97
[2022-05-03] MEDS: Normal Saline Flush 10 ML SYR IVP (20:14)
[2022-05-04 01:55] VITALS: BP 108/60; PULSE 60; RESP 19; TEMP 36.9; O2SAT 98
[2022-05-04] MEDS: cefTRIAXone 2 GM/50 ML BAG IVPB (06:30)
[2022-05-04 06:32] LABS: Abs Immature Grans 0.08 10^3/uL (0.0-0.06); Absolute Basophil Count 0.07 10^3/uL (0.0-0.2); Absolute Eosinophil Count 0.02 10^3/uL (0.0-0.7); Absolute Lymphocyte Count 1.72 10^3/uL (1.2-3.4); Absolute Neutrophil Count 8.56 10^3/uL (1.2-6.7); Basophils % 0.6; Eosinophils % 0.2; HCT 30.2 % (40.0-50.0); HGB 10.1 g/dL (13.5-17.5); Immature Grans % 0.7; MCH 31.6 pg (27.0-33.0); MCHC 33.4 % (32.0-36.0); MCV 94 fL (80-95); MPV 10.6 fL (8.0-11.0); Monocytes % 8.7; Neutrophils % 74.8; Platelet Count 367 10^3/uL (130-400); RDW 13.5 % (11.8-14.1); RDW-SD 46.6 fL; WBC 11.44 10^3/uL (4.4-10.8)
[2022-05-04 06:43] VITALS: BP 118/68; PULSE 64; RESP 15; TEMP 36.1; O2SAT 97
[2022-05-04 06:52] LABS: Anion Gap 7.9 mmol/L (3-11); BUN 15 mg/dL (7-18); CO2 27.1 mmol/L (21.0-32.0); CREATININE 1.1 mg/dL (0.70-1.30); Chloride 105 mmol/L (98-107); Estimated GFR 70.01 (mL/min/1.73m2); Glucose 92 mg/dL (74-106); Magnesium 1.9 mg/dL (1.8-2.4); Potassium 4.2 mmol/L (3.5-5.1); Sodium 140 mmol/L (136-145)
[2022-05-04] MEDS: Ferrous Sulfate 325 MG TAB PO ×2 (08:26→20:11)
--- NOTE | 2022-05-04 12:21 | PT.INTREAT ---
PT Notes Visit Reasons: Sepsis Due to a Complicated UTI,B Hydronephrosis Date: 05/04/2022 PRECAUTIONS: Fall, Activity as tolerated SUBJECTIVE: Pt in WC when approached for therapy this morning, Pt initially refused attempts to get pt to participate with therapy, pt eventually agreed to participating at around noon time before lunch time. OBJECTIVE:? PAIN: no complaint of pain ? BED MOBILITY/TRANSFERS? Sit-stand: SBA? Stand-sit: SBA? Static standing weight shifting L/R, Front/back supervision FWW? GAIT? Assistive Device: FWW? Weight bearing: Full Assist: SBA ? Distance:? 30'x3 ? Deviation: Slow pacing, short step height and length Therapeutic procedures 96297: Instruction in therapeutic exercises to develop strength and endurance, range of motion and flexibility. standing march till fatigue, SSH [id number], Heel raises [id number], toe raises [id number], partial squats [id number], standing hip circumduction [id number] ASSESSMENT:? Pt tolerated activity well and was able to stay standing the entire duration of session. PLAN: Continue with global strengthening, gait and transfer training for improved mobility and activity tolerance. TREATMENT CODE/TIME:25 minutes; [id number], 52032 x1 (12:05, 12:30pm) ?
[2022-05-04] MEDS: Heparin 5,000 UNITS/ML VIAL 5000 UNITS SC ×2 (14:17→20:11)
[2022-05-04 15:08] VITALS: BP 117/75; PULSE 66; RESP 16; TEMP 36.8; O2SAT 98
[2022-05-04 16:34] LABS: Source Nasal/Nares
--- NOTE | 2022-05-04 16:42 | W.PM.PROGNOT ---
Date of Service Date of service: 05/04/22 Time of Service: 16:42 Assessment and Plan Assessment and plan (1) Complicated UTI (urinary tract infection): Status: Acute Assessment and plan: growing e coli sensitive to ceftriaxone, continue day 5 (2) Bacteremia, escherichia coli: Status: Acute Assessment and plan: growing same in urine. continue ceftriaxone day 5. (3) Bilateral hydronephrosis: Status: Resolved Assessment and plan: d/t obstructive uropathy seen by Dr Wallis, plan for cystoscopy when infection cleared. see note for full details. will f/u outpatient for further recommendations carmona draining clear yellow urine (4) Bilateral lower extremity edema: Status: Acute Assessment and plan: echo: Technically limited with poor spatial resolution LV size and systolic fxn NL No wall motion abn RV NL Mild aortic regurgitation Ascending aorta is mildly dilated EF 59% no DVT bilaterally 1+ BLE pedal edema (5) Prostatic hypertrophy: Status: Chronic Assessment and plan: As above Per Dr Wallis's note, had a previously elevated PSA. Given acute UTI, now is not the time to recheck PSA. Will require outpatient f/u. (6) Mass of urinary bladder determined by ultrasound: Status: Acute Assessment and plan: Followed by Dr Wallis. F/u as outpatient. (7) DVT prophylaxis: Status: Acute Assessment and plan: SC heparin (8) Discharge planning issues: Status: Acute Assessment and plan: Full code C/s PT. [facility] Thursday - will need Covid test discussed with Dr Ambrocio Subjective Subjective Patient reports: no new complaints, feels better, tolerating liquids well, tolerating a regular diet, shortness of breath and afebrile Interval history since last seen: carmona to gravity drainage. Exam Const General: cooperative, comfortable, frail appearing and ill appearing chronically Nutritional Appearance: thin Orientation: alert, awake and oriented x3 HENMT Head: normal to inspection, normocephalic and atraumatic Mouth: oral mucosae normal Resp Effort & Inspection: normal respiratory effort Auscultation: clear to auscultation bilaterally and diminished lung sounds Cardio Rate: regular rate Rhythm: regular rhythm General: other (Carmona catheter draining without issue) Skin Lesions: lesion noted (Pressure to buttocks and hips see wound care consult and imaging) Rashes: no rashes Neuro General: patient alert, patient awake and patient oriented x3 Objective Last Vital Signs Temp 36.8 C 05/04/22 15:08 Pulse 66 05/04/22 15:08 Resp 16 05/04/22 15:08 BP 117/75 05/04/22 15:08 Pulse Ox 98 05/04/22 15:08 Laboratory Results - last 24 hr 05/04/22 05/04/22 05/04/22 05:26 05:26 16:20 WBC 11.44 H RBC 3.20 L Hgb 10.1 L Hct 30.2 L MCV 94 MCH 31.6 MCHC 33.4 RDW 13.5 Plt Count 367 MPV 10.6 Immature Gran % 0.7 Neutrophils % 74.8 Lymphocytes % 15.0 Monocytes % 8.7 Eosinophils % 0.2 Basophils % 0.6 Nucleated RBC % 0.0 Absolute Neutrophils 8.56 H Absolute Lymphocytes 1.72 Absolute Monocytes 1.00 H Absolute Eosinophils 0.02 Absolute Basophils 0.07 Sodium 140 Potassium 4.2 Chloride 105 Carbon Dioxide 27.1 Anion Gap 7.9 BUN 15 Creatinine 1.1 Est GFR (CKD-EPI 2020) 70.01 Glucose 92 Calcium 9.0 Magnesium 1.9 COVID-19 Source Nasal/Nares PAWSS Have you Been Recently Intoxicated or Drunk Within the Last 30 days?: No Have you Ever Experienced Previous Episodes of Alcohol Withdrawal?: No Have you ever Experienced Withdrawal Seizures?: No Have you ever Experienced Delirium Tremens(DT)s?: No Have you ever undergone Alcohol Rehabilitation Treatment (i.e, inpt ot outpatient treatment programs)?: No Have you ever Experienced Blackouts?: No Have you ever Combined Alcohol with other Downers within the last 90 days?: No Have you ever Combined Alcohol with any other Substance of Abuse during the last 90 days?: No Positive Blood Alcohol level on Presentation? [PCS.BAL]: No Evidence of Increased Autonomic Activity (i.e. HR>120, tremor, sweating, agitation, nausea)?: No Result: 0 Time Spent with Patient Time Spent with Patient: 25-34 minutes Time was spent: preparing to see the patient(eg.review tests), obtaining and/or reviewing separately otained hiistory and indepentently interpreting results
[2022-05-04 17:16] LABS: COVID-19 PCR Negative (Negative)
[2022-05-04 19:39] VITALS: BP 132/86; PULSE 65; RESP 16; TEMP 36.4; O2SAT 98
[2022-05-04 23:54] VITALS: BP 130/84; PULSE 68; RESP 16; TEMP 36.6; O2SAT 98
[2022-05-05 03:25] VITALS: BP 110/69; PULSE 70; RESP 16; TEMP 36.1; O2SAT 93
[2022-05-05] MEDS: cefTRIAXone 2 GM/50 ML BAG IVPB (05:22)
[2022-05-05] MEDS: Heparin 5,000 UNITS/ML VIAL 5000 UNITS SC (05:23)
[2022-05-05 07:26] VITALS: BP 105/62; PULSE 53; RESP 18; TEMP 36; O2SAT 97
[2022-05-05] MEDS: Ferrous Sulfate 325 MG TAB PO (07:39)
--- NOTE | 2022-05-05 09:48 | PDOC.CMDIS ---
- If Service Date Differs Date of service: 05/05/22 Time of Service: 09:48 LACE Index Scoring Tool - Questions: Length of Stay (in days): 4 - 6 Acuity (Admit via E.D.?): Yes E.D. Visits: 3 - Answers: Total Score: 10 Risk of Readmission: High Risk Care Management Discharge Reason for Hospitalization: Sepsis due to complicated UTI. Discharge Plan: Thong is discharged to [facility] STR prior to discharging home. He is transported via [employer] [facility] [employer]. Thong will follow up with communty/facility providers and discharge plan of care as prescribed. Patient/Family Education Needs: Review discharge instructions, limitations and plan to follow up with facility and community providers. Discuss ask me three and goals of self care. Services Needed at Discharge: Long Term Facility ([facility] for STR), Transportation ([employer])
--- NOTE | 2022-05-05 09:57 | DSE_ITS ---
Date of service: 05/05/22 Time of Service: 09:57 DS: Diagnosis Discharge Diagnosis (1) Complicated UTI (urinary tract infection): Status: Acute (2) Bacteremia, escherichia coli: Status: Acute (3) Bilateral hydronephrosis: Status: Resolved (4) Bilateral lower extremity edema: Status: Acute (5) Prostatic hypertrophy: Status: Chronic (6) Mass of urinary bladder determined by ultrasound: Status: Acute Discharge Plan Disposition Patient Disposition: Detention Facility(SNF) Condition: Stable Discharge Details Reason For Visit: Sepsis Due to a Complicated UTI,B Hydronephrosis Admit Date/Time: 04/29/22 22:58 Admit Provider: Dee Chowdhury Attending Provider: Dee Chowdhury Primary Care Provider: ALEX DÍAZ Hospital Course Hospital Course: This is a 76-year-old gentleman who was evaluated by urology following an inguinal hernia repair?where he was found to have over 2 L of urine in his bladder.? A Carmona catheter was placed and he was started on tamsulosin.? A aaavv-uv-[id number] ultrasound at that point raised the possibility of a bladder mass.? The mass may actually have been a component of his enlarged prostate jutting back into the bladder. After being on the tamsulosin for some time, carmona catheter was removed. Following this the patient started having incontinent episodes.?It was suspected due to overflow incontinence and he was advised to go to the office for scan and replace his Carmona but he refused and also refused to go into the emergency department.? He told the urology office staff that he would not agree to having a Carmona back in place and he was not going to take any medications. Ultimately he was brought to the emergency department by his family on 04/29/2022 with mental status changes.? He was found to be in urinary retention with bilateral hydronephrosis on CT scan.?An indwelling carmona catheter was inserted and bladder emptied. He grew e coli in both his urine and blood cultures.? He was admitted to med/surg for further management. His mental status cleared and he is at baseline but remains too deconditioned to safely return home. He is working with physical therapy and recommendations are for inpatient rehabilitation. He will continue to require indwelling carmona catheter and will need follow up with urology for more definitive plan. He needs to complete 8 more days of antibiotics to complete a 14 day course to treat his bacteremia. He is being discharged to [facility] by [facility]. discharge discussed with Dr Ambrocio. Home Meds and New Rx's Prescriptions: New acetaminophen 325 mg Tablet 325 - 650 mg PO Q4H PRN PRNQty: 0 0RF ferrous sulfate 325 mg (65 mg iron) Tablet 325 mg PO BID Qty: 0 0RF docusate sodium [Colace] 100 mg Capsule 100 mg PO TID PRN PRNQty: 0 0RF cefpodoxime 200 mg tablet 200 mg PO BID Qty: 17 0RF Rx Instructions: must administer with a meal/food No Action cndpc-ed-[id number]-[id number]-[id number]-[id number] [Antarctic Krill Oil] [id number] mg capsule 1 cap PO DAILY ferrous sulfate 325 mg (65 mg iron) tablet 325 mg PO DAILY cyanocobalamin (vitamin B-12) 100 mcg tablet 100 mcg PO DAILY tszyrgi-tgws-loapx-oreg-capryl 100 mg-150 mg- 50 mg-150 mg capsule 2 cap PO DAILY collagen care 2 cap PO DAILY collegen peptids powder 2 - 3 ea PO DAILY multivitamin with minerals Tablet 1 tab PO DAILY C-Zn-K.ginseng-derrek hips-hrb62 75 mg Tablet 2 tab PO DAILY Label Comments: Organic Immune support/ Avenger vitamin D3-vitamin K2 1,250-200 mcg Capsule 1 cap PO DAILY Metamucil 3.4 gram/5.4 gram powder 1 tbsp PO DAILY Qty: 660 0RF Rx Instructions: mix into at least 8 oz of water or juice before administering tamsulosin [Flomax] 0.4 mg capsule 0.4 mg PO QHS Qty: 14 0RF Rx Instructions: Further refills from urology clinic Discharge Instructions Instructions: Urinary Tract Infection in Men (DC), Carmona Catheter Placement and Care (DC), Bacteremia (DC) Additional Instructions: finish your course of antibiotics as prescribed even if you feel better. carmona care as directed as you have obstructive uropathy (can not void on your own). You were evaluated by urology. Typically, when patients get to the point where we see obstructive uropathy, we generally recommend either chronic catheter drainage or surgical treatment. Preference is for chronic catheter drainage is clean intermittent catheterization (CIC). Based on overall strength and current physical abilities, Dr Wallis not believe you would be able to keep up with CIC.? Other chronic catheter drainage options would be a chronic indwelling urethral catheter or chronic suprapubic tube.? Both of these have a higher risk of infection and urosepsis than the CIC option. Other options would be surgical. Once infection is cleared it is recommended you undergo a cystoscopy for further evaluation for recommendations. You should follow up with DR Wallis accordingly Stand Alone Forms: Nursing Discharge Form Referrals: Anjum Wallis MD [ [facility] STAFF PHYSICIAN] - Activity:: Activity as Tolerated Equipment/Supplies:: No Equipment Needed Diet:: As Tolerated Discharge Orders Discharge Orders: Discharge Order (Routine); Ordered 05/05/22 Ordered By: Yazmin Diaz DS: Summary Time Spent with Patient providing and/or coordinating discharge services: Greater than 30 minutes Status at Discharge Functional status at discharge: uses cane/walker Overall status at discharge: patient is not back to baseline Mental Status: mental status grossly normal Speech and Movement: speech and movement normal Mood: congruent mood Affect: normal affect Exam Const General: cooperative, comfortable and frail appearing Nutritional Appearance: thin Orientation: alert, awake and oriented x3 HENMT Head: normal to inspection, normocephalic and atraumatic Mouth: oral mucosae normal Resp Effort & Inspection: normal respiratory effort Auscultation: clear to auscultation bilaterally and diminished lung sounds Cardio Rate: regular rate Rhythm: regular rhythm General: other (Carmona catheter draining without issue) Skin Lesions: lesion noted (Pressure to buttocks and hips see wound care consult and imaging) Rashes: no rashes Neuro General: patient alert, patient awake and patient oriented x3 Psych Mental Status: mental status grossly normal Speech and Movement: speech and movement normal Mood: congruent mood Affect: normal affect DS: Data Vitals/I&O Vitals and I&O: Vital Signs Temperature 36.0 C L 05/05/22 07:26 Temperature Source Tympanic 05/05/22 07:26 Pulse 53 L 05/05/22 07:26 Pulse Rhythm Regular 05/05/22 07:40 Respiratory Rate 18 05/05/22 07:26 Respiratory Effort Non-Labored 05/05/22 07:40 Respiratory Depth Normal 05/05/22 07:40 Respiratory Pattern Normal 05/05/22 07:40 Blood Pressure 105/62 05/05/22 07:26 Blood Pressure Position Supine 04/29/22 20:27 Pulse Oximetry 97 05/05/22 07:26 Oxygen Delivery Method Room Air 05/05/22 07:26 Oxygen Flow Rate 0 05/05/22 07:26 Pain Level 0 05/05/22 03:25 Comment 04/29/22 23:56 Intake & Output 05/04/22 05/04/22 05/05/22 11:59 23:59 11:59 Intake Total 470 / 950 480 / 950 250 / 250 Output Total 1250 / 1600 350 / 1600 1500 / 1500 Balance -780 / -650 130 / -650 -1250 / -1250 Weight 72.4 kg Intake: IV 50 / 50 50 / 50 Oral 420 / 900 480 / 900 200 / 200 Output: Urine 1250 / 1600 350 / 1600 1500 / 1500 Other: Urine Color Yellow Yellow Yellow Urine Appearance Cloudy Cloudy Clear Sediment Mucous Threads Stool Size Large Moderate Stool Characteristics Soft Liquid Liquid Mucoid Green Brown Data Completed and Pending Labs on day of discharge: Labs from last 24 hours 05/04/22 16:20 COVID-19 Source Nasal/Nares SARS-CoV-2 (PCR) Negative PFSH All Active Problems (Updated 05/04/22 @ 16:45 by Yazmin Diaz NP) Bacteremia, escherichia coli (Acute) Bilateral lower extremity edema (Acute) Discharge planning issues (Acute) DVT prophylaxis (Acute) Complicated UTI (urinary tract infection) (Acute) Sepsis (Acute) Acute UTI (Acute) Bandemia (Acute) Prostatic hypertrophy (Chronic) Mass of urinary bladder determined by ultrasound (Acute) Urinary retention with incomplete bladder emptying (Acute) Urinary retention due to benign prostatic hyperplasia (Acute) BPH (benign prostatic hyperplasia) (Chronic) Essential hypertension (Acute) Rectal/anal hemorrhage (Acute) Skin lesion (Acute) Gastric polyp (Acute) Normal colonoscopy (Acute) Mass of left upper extremity (Acute) [facility] 2inch diameter fungating bleeding mass upper left extremity. Bacteremia (Acute) Post surgical complication (Acute) Unilateral inguinal hernia without obstruction or gangrene (Acute) Basal cell carcinoma of upper extremity (Acute) Medical History DVT (deep venous thrombosis) Elevated PSA Hyperlipidemia Hypertension Osteoarthritis, hip, bilateral Problem related to housing and economic circumstances Seborrheic dermatitis Septic arthritis Urinary retention Surgical History History of colonoscopy (~09/2021) History of esophagogastroduodenoscopy (EGD) (~09/2021) Unilateral inguinal hernia with mesh per pt. Right side per patient Social History Smoking/Tobacco Use Status: Never Smoking risk assessment performed?: Yes Alcohol Intake: current Alcohol Intake frequency: a few times a month Alcohol type: wine Drug use: Never Substance use type: does not use Current gender identity: male Do you feel safe at home: Yes Do you feel safe in your relationship?: Yes Additional Social history: lives alone Time Spent with Patient Time Spent with Patient: 45-69 minutes Time was spent: preparing to see the patient(eg.review tests), obtaining and/or reviewing separately otained hiistory, referring, communicating with other health resident care assistant, indepentently interpreting results and care coordination
--- NOTE | 2022-05-05 18:10 | INDS_ITS ---
PT Notes Visit Reasons: Sepsis Due to a Complicated UTI,B Hydronephrosis Physical Therapy Inpatient Discharge Summary Date: 04/30/22 Dates of Service: 04/30/2022 through 05/04/2022 This is a clinical summary of care provided for the duration of dates listed above. No charge was made in the completion of this documentation. Referring Doctor:? Dr Chowdhury PT Orders: PT CONSULT: limited ability to ambulate Precautions: standard Patient Profile/Admitting Diagnosis:?? Patient is a 76 year old male with PMHx of BPH, bladder, mass,? urinary retention s/p removal of carmona catheter on 04/21/22, DVT, hypertension, hyperlipidemia, septic arthritis in the past, chronic anemia, who presented to [facility] ED yesterday with worsening confusion and weakness x 1 month. Diagnosed with sepsis and complicated UTI, and admitted for medical management. PMHX: All Active Problems? Postoperative anemia due to acute blood loss (Acute) Post surgical complication (Acute) H/O local excision of skin lesion (Acute) Bacteremia (Acute) Mass of left upper extremity (Acute) [facility] 2inch diameter fungating bleeding mass upper left extremity.Normal colonoscopy (Acute) Gastric polyp (Acute) Essential hypertension (Acute) Rectal/anal hemorrhage (Acute) Skin lesion (Acute) Medical History? DVT (deep venous thrombosis) Elevated PSA Hyperlipidemia Hypertension Osteoarthritis, hip, bilateral Problem related to housing and economic circumstances Seborrheic dermatitis Septic arthritis Urinary retention Social History/Home Situation: Patient reports that he lives alone in a multi-level home. He uses a 4WW at baseline, and has one on each floor. Uses a scooter for community distances. Reports [address] home, which he typically manages with his walker. Receives HH services. Equipment Owned/DME: 4WW, motorized scooter Subjective:? NT. See most recent PHYSICAL SCIENCES PROFESSOR notes. Objective:? General Observation: NT. See most recent PHYSICAL SCIENCES PROFESSOR notes. Mental Status: NT. See most recent PHYSICAL SCIENCES PROFESSOR notes. Pain: NT. See most recent PHYSICAL SCIENCES PROFESSOR notes. ROM: Right Upper Extremity: Shoulder flexion 120*. Elbow and wrist motion WFL. Able to form loose quality tech and fully open hand. Left Upper Extremity: Shoulder flexion 120*. Elbow and wrist motion WFL.Able to form loose quality tech and fully open hand. Right Lower Extremity: WFL Left Lower Extremity: hip flexion allows 85* with pain. Hip AB 10* with crepitus. Limited tolerance to sitting position due to restrictions in hip flexion and associated pain. Strength: Right Upper Extremity: Grossly 3-/5 Left Upper Extremity: Grossly 3-/5 Bilat Lower Extremity: No MMT applied due to post-op status. Quads 3/5 or greater. DF 3/5 or greater. Unable to perform SLR on left due to hip pain. BED MOBILITY/TRANSFERS? Sit-stand: SBA? Stand-sit: SBA? Static standing weight shifting L/R, Front/back supervision FWW? GAIT? Assistive Device: FWW? Weight bearing: Full Assist: SBA ? Distance:? 30'x3 ? Deviation: Slow pacing, short step height and length Balance:? Static Sitting: poor Dynamic Sitting: poor Static Standing:unable Dynamic Standing: unable Special Tests: Mobility Limitations Standardized Measure [facility] AM-PAC 6 clicks Basic Mobility Inpatient Short Form: Raw Score: 8? CMS Score: 86% impairment ? ? ? Informed Consent/Education:? Patient instructed in purpose of PT consult and plan of care. Treatment ([id number]): Patient was instructed in log rolling techniques, although with limited carryover. Attempted sitting exercise, although with limited torance. Assessment:?? Patient is a 76 year old male referred to physical therapy services with the diagnosis of limited ability to ambulate during acute care stay for management of sepsis and complicated UTI.? Patient presents with clinical signs and symptoms consistent with diagnosis, and complicated by baseline mobility impairments. He requires skilled PT intervention to maximize his mobility and activity tolerance, and allow for safe transition back to community. He will benefit from continued PT upon discharge to continue addressing his chronic mobility issues.? He currently demonstrates the following impairment level findings: 1. Decreased activity tolerance 2. decreased LE strength 3. decreased UE ROM and strength 4. chronic pain in hands, with limited quality tech for WW management 5. decreased LE ROM Impairments are contributing to the following functional limitations: 1. Decreased activity tolerance 2. decreased independence with bed mobility 3. unable to ambulate Goals: Goals X1 week 1. Supine-Sit : supervision NOT MET 2. Sit-Supine : supervision NOT MET 3. Sit-Stand : supervision NOT MET 4. Stand-Sit : supervision NOT MET 5. Bed-Chair : supervision with 4WW NOT MET 6. Chair-Bed : supervision with 4WW NOT MET 7. Gait : supervision with 4WW x 50' NOT MET 8. Stairs : able to ascend and descend 2 stairs with bilat UE support to rails NOT MET DISCHARGE RECOMMENDATIONS: SNF vs. Home with services - outpatient PT vs HH TREATMENT CODE/TIME: NC Thank you for the opportunity to participate in the care of this patient. Symone Mcleod PT, DPT, CLT [facility] [place], [place]
== END 2022-05-05 12:04 | disposition skilled nursing facility (03) | DRG 871 ==
LOC: ER 23:58 → MS 04-30 00:37
PROVIDERS: Internal Medicine; Nurse Practitioner Acute Care; Nurse Practitioner Family; Admitting Provider Internal Medicine; Emergency Provider Student in an Organized Health Care Education/Training Program; PCP Internal Medicine; Visit Provider Internal Medicine
DX: A41.51 Sepsis due to Escherichia coli [E. coli] (principal); G92.8 Other toxic encephalopathy; N13.6 Pyonephrosis; N13.8 Other obstructive and reflux uropathy; N17.9 Acute kidney failure, unspecified; R33.9 Retention of urine, unspecified; N40.1 Benign prostatic hyperplasia with lower urinary tract symptoms; R33.8 Other retention of urine; Z86.718 Personal history of other venous thrombosis and embolism; E78.5 Hyperlipidemia, unspecified; I10 Essential (primary) hypertension; R60.0 Localized edema; N32.9 Bladder disorder, unspecified; D64.9 Anemia, unspecified; R53.1 Weakness; K31.7 Polyp of stomach and duodenum; L89.152 Pressure ulcer of sacral region, stage 2; B96.20 Unspecified Escherichia coli [E. coli] as the cause of diseases classified elsewhere
CPT/HCPCS: 36410; 36415; 51702; 74177; 80048; 80053; 82550; 82805; 84145; 86850; 86900; 86901; 87040; 87077; 87635; 96361; 96365; 97110; 97162; 97530; 99285; 70450; 71260; 81003; 81015; 82270; 82607; 82728; 82746; 83010; 83540; 83550; 83605; 83615; 83735; 84443; 85014; 85018; 85025; 85045; 86140; 87086; 87186; 93306; 93970; 99223; 99232; 99233; 99239; J1644; J2543; J3490

== ENCOUNTER 2022-05-09 14:45 | Outpatient (REF) | payer OTHER, SELFPAY ==
[2022-05-09 16:18] LABS: Abs Immature Grans 0.05 10^3/uL (0.0-0.06); Absolute Basophil Count 0.05 10^3/uL (0.0-0.2); Absolute Lymphocyte Count 1.53 10^3/uL (1.2-3.4); Absolute Monocyte Count 0.68 10^3/uL (0.1-0.8); Absolute Neutrophil Count 5.56 10^3/uL (1.2-6.7); Basophils % 0.6; HCT 29.3 % (40.0-50.0); HGB 9.4 g/dL (13.5-17.5); Immature Grans % 0.6; Lymphocytes % 19.4; MCH 31.1 pg (27.0-33.0); MCHC 32.1 % (32.0-36.0); MCV 97 fL (80-95); MPV 10.1 fL (8.0-11.0); Monocytes % 8.6; Neutrophils % 70.8; Platelet Count 514 10^3/uL (130-400); RBC 3.02 10^6/uL (4.36-5.78); RDW 14.5 % (11.8-14.1); RDW-SD 50.3 fL; WBC 7.87 10^3/uL (4.4-10.8)
[2022-05-09 16:32] LABS: Anion Gap 9.3 mmol/L (3-11); BUN 21 mg/dL (7-18); CO2 27.7 mmol/L (21.0-32.0); CREATININE 1.4 mg/dL (0.70-1.30); Calcium 8.9 mg/dL (8.5-10.1); Chloride 101 mmol/L (98-107); Estimated GFR 52.41 (mL/min/1.73m2); Glucose 135 mg/dL (74-106); Potassium 4.6 mmol/L (3.5-5.1); Sodium 138 mmol/L (136-145)
== END 2022-05-09 14:46 | disposition home or self-care (01) ==
LOC: LBN 14:45
PROVIDERS: PCP Internal Medicine; Visit Provider Internal Medicine
DX: A41.51 Sepsis due to Escherichia coli [E. coli] (principal); N40.1 Benign prostatic hyperplasia with lower urinary tract symptoms; N13.8 Other obstructive and reflux uropathy; I10 Essential (primary) hypertension
CPT/HCPCS: 80048; 85025

== ENCOUNTER 2022-05-29 10:12 | Observation (INO) | payer OTHER, SELFPAY ==
[2022-05-29] VITALS (8 sets, daily range): BP systolic 112–146; BP diastolic 59–86; PULSE 41–80; RESP 12–18; TEMP 35.7–36.4; O2SAT 96–99; BMI 21.6
--- NOTE | 2022-05-29 07:06 | W.ANESPRE ---
General Info Date of Service Date Performed: 05/29/22 Height: 6 ft Weight: 72.4 kg Body Mass Index (BMI): 21.6 Surgical Procedure: Operation Date: 05/29/22 09:10 Proposed Procedure Side Surgeon p Cystoscopy/Suprapubic Tube Insertion Anjum Wallis MD Meds Allergies and Home Medications Allergies Allergy/AdvReac Type Severity Reaction Status Date / Time amlodipine Allergy Unknown UNKNOWN Verified 05/29/22 07:38 sulfamethoxazole Allergy Unknown UNKNOWN Verified 05/29/22 07:38 [From Sulfamethoxazole-Trimethoprim] trimethoprim Allergy Unknown Verified 05/29/22 07:38 [From Sulfamethoxazole-Trimethoprim] Home Medication Medication Instructions Recorded acetaminophen 325 mg tablet 325 - 650 mg PO Q4H PRN PRN #0 tabs 05/05/22 docusate sodium 100 mg capsule 100 mg PO TID PRN PRN #0 caps 05/05/22 (Colace) ferrous sulfate 325 mg (65 mg 325 mg PO BID #0 tabs 05/05/22 iron) tablet Current Visit Medications: Current Medications Generic Name Dose Route Start Last Admin Trade Name Freq PRN Reason Stop Dose Admin Ringer's Solution 1,000 mls @ 80 mls/hr 05/29/22 06:00 IV 06/27/22 23:59 INFUSION SANGEETHA Cefazolin Sodium/Dextrose 2 gm in 50 mls @ 100 mls/hr 05/29/22 06:00 Ancef Duplex IVPB 05/29/22 16:00 PREOP SANGEETHA IV Miscellaneous Supplies 1 each 05/29/22 06:00 Iv Access IV 06/27/22 23:59 DIRECTED SANGEETHA Sodium Chloride 0 ml 05/29/22 06:00 Normal Saline Flush 10 Ml Syr IV 06/27/22 23:59 PRN PRN Sodium Chloride 0 ml 05/29/22 06:00 Normal Saline 10 Ml Vial IJ 06/27/22 23:59 DIRECTED PRN Sterile Water 0 ml 05/29/22 06:00 Water,Injection,Sterile 10 Ml Vial IJ 06/27/22 23:59 DIRECTED PRN PFSH Active Problems Active Problems: Problem Status Onset Code Bacteremia, escherichia coli R78.81, B96.20 Bilateral lower extremity edema R60.0 Toxic metabolic encephalopathy G92.8 ELINA (acute kidney injury) N17.9 Bilateral hydronephrosis N13.30 Complicated UTI (urinary tract infection) N39.0 Sepsis A41.9 Acute UTI N39.0 History of urinary retention Z87.898 Bandemia D72.825 Prostatic hypertrophy N40.0 Mass of urinary bladder determined by ultrasound N32.89 Urinary retention with incomplete bladder emptying R33.9 Urinary retention due to benign prostatic hyperplasia N40.1, R33.8 BPH (benign prostatic hyperplasia) N40.0 Essential hypertension I10 Rectal/anal hemorrhage K62.5 Skin lesion L98.9 Gastric polyp K31.7 Normal colonoscopy Mass of left upper extremity R22.32 Bacteremia R78.81 Post surgical complication T81.9XXA Unilateral inguinal hernia without obstruction or gangrene K40.90 Basal cell carcinoma of upper extremity C44.611 Medical History Medical History DVT (deep venous thrombosis) Elevated PSA Hyperlipidemia Hypertension Osteoarthritis, hip, bilateral Problem related to housing and economic circumstances Seborrheic dermatitis Septic arthritis Urinary retention Medical History Comments:: Holistic medications; 4+ pitting edema to upper shins Surgical History Surgical History History of colonoscopy (~09/2021) History of esophagogastroduodenoscopy (EGD) (~09/2021) Unilateral inguinal hernia with mesh per pt. Right side per patient Tobacco Smoking/Tobacco Use Status: Never Alcohol Alcohol Intake: current Alcohol intake frequency: holidays/special occasions only Alcohol type: wine Substance Use Substance use: Never Substance use type: does not use Vital Signs and Lab Results Vital Signs Most Recent Vital Signs in EMR: Temp Pulse Resp BP Pulse Ox 36.1 C L 70 18 127/65 99 05/29/22 07:40 05/29/22 07:40 05/29/22 07:40 05/29/22 07:40 05/29/22 07:40 Lab Results Blood Type / Crossmatch: Patient ABO/Rh O Positive 04/30/22 Antibody Screen NEGATIVE 04/30/22 Complete Blood Count: White Blood Count 7.87 10^3/uL (4.4-10.8) 05/09/22 14:19 Red Blood Count 3.02 10^6/uL (4.36-5.78) L 05/09/22 14:19 Hemoglobin 9.4 g/dL (13.5-17.5) L 05/09/22 14:19 Hematocrit 29.3 % (40.0-50.0) L 05/09/22 14:19 Platelet Count 514 10^3/uL (130-400) H 05/09/22 14:19 Venous Blood Lactate 1.0 mmol/L (0.6-1.4) 04/29/22 22:40 Complete Metabolic Panel: Sodium 138 mmol/L (136-145) 05/09/22 14:19 Potassium 4.6 mmol/L (3.5-5.1) 05/09/22 14:19 Chloride 101 mmol/L (98-107) 05/09/22 14:19 Carbon Dioxide 27.7 mmol/L (21.0-32.0) 05/09/22 14:19 BUN 21 mg/dL (7-18) H 05/09/22 14:19 Creatinine 1.4 mg/dL (0.70-1.30) H 05/09/22 14:19 Est GFR (CKD-EPI 2020) 52.41 (mL/min/1.73m2) 05/09/22 14:19 Magnesium 1.9 mg/dL (1.8-2.4) 05/04/22 05:26 Calcium 8.9 mg/dL (8.5-10.1) 05/09/22 14:19 Albumin 2.0 g/dL (3.4-5.0) L 05/01/22 05:58 Glucose 135 mg/dL (74-106) H 05/09/22 14:19 C-Reactive Protein 13.06 mg/dL (0.0-0.3) H 04/30/22 06:40 Liver Function Panel: Alanine Aminotransferase (ALT/SGPT) 19 U/L (16-63) 05/01/22 05:58 Aspartate Amino Transf (AST/SGOT) 44 U/L (15-37) H 05/01/22 05:58 Coagulation Panel: No Data to Display Cardiac Panel: Creatine Kinase 235 U/L (39-308) 05/02/22 Arterial Blood Gas: No Data to Display Venous Blood Gas: Venous Blood pH 7.49 (7.31-7.41) H 04/29/22 21:19 Venous Blood Partial Pressure O2 96 mmHg 04/29/22 21:19 Venous Blood Partial Pressure CO2 29 mmHg (41-51) L 04/29/22 21:19 Venous Blood Oxygen Saturation 98 % 04/29/22 21:19 Venous Blood HCO3 22 mmol/L (23-28) L 04/29/22 21:19 Venous Blood Base Excess -1 mmol/L (-2-3) 04/29/22 21:19 Venous Blood Total Carbon Dioxide 21 mmol/L (24-29) L 04/29/22 21:19 Pancreas Panel: No Data to Display Thyroid Panel: Thyroid Stimulating Hormone (TSH) 2.77 uIU/mL (0.36-3.74) 04/29/22 20:35 Infectious Disease: Coronavirus (COVID-19)(PCR) Negative (Negative) 05/04/22 16:20 Coronavirus 2019 Source Nasal/Nares 05/04/22 16:20 Blood Cultures: No Data to Display Toxicology Panel: No Data to Display Imaging and Studies Imaging and Studies Study information below may be from another EMR and interpreted by another provider. Please see original notes in EMR for more complete details. Echocardiogram Summary: 10/16/21: Conclusion Normal left ventricular wall thickness and chamber size. Estimated ejection fraction is 55 to 60%. 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 3.76 cm Anesthesia Assessment and Plan Anesthesia History Personal History: No History of Anesthesia Complications Family History: No Family History of Anesthesia Complications Exercise Tolerance Exercise Tolerance: Metabolic Equivalents>4 Cardiac & Pulmonary Exam Cardiac Exam: Normal S1/S2 Heart Sounds Pulmonary Exam: Clear Bilateral Breath Sounds Implantable Cardiac Device Does patient have a Pacemaker or an ICD?: No Airway Exam Known Difficult Airway: No Mallampati Class: 1 Mouth Opening: Normal (> 3cm) Thyromental Distance: Greater than 3 cm Neck Range of Motion: Full ROM Neck Circumference: Normal Teeth Condition: Normal Dentition ASA Classification ASA Score: ASA 2 Emergency Case?: No NPO Status NPO Status: NPO Clears >2 hours, Solids >8 hours Anesthesia Plan Resuscitation Status: Full Code Anesthesia Technique: General Anesthesia Airway Planned: LMA Monitors Used: Standard Monitors Preoperative Comments:: 76 yo male for cysto. Sig PMHx: HTN, ? DVT (in his history, but denies knowledge of this), never smoker, occ EtOH. Previous Anes: egd/colo, prop, natural airway no issues. excision lesion, prop, natural airway, no issues. hernia repair, LMA 4, no issues. Plan: GA, LMA
[2022-05-29] MEDS: Lactated Ringers 1,000 ML 80 ML IV ×2 (08:05→11:30)
--- NOTE | 2022-05-29 08:12 | W.PM.HP.N ---
Date of service: 05/29/22 Time of Service: 08:12 History of Present Illness History of Present Illness Chief Complaint: Obstructive uropathy Narrative: This is a 76 year old man who has a history of urinary retention and obstructive uropathy. He initially had an indwelling urethral catheter. When the catheter was removed, he presented with retention, bilateral hydronephrosis and E Coli sepsis. His catheter was replaced We discussed potential treatment options including CIC, chronic indwelling urethral catheters, suprapubic tube or surgery (if his bladder was able to generate enough of a detrusor contraction). He is unable to perform CIC and not interested in a surgical procedure/urodynamics. He would like to try medical management (he was previously resistant to taking meds). He presents for placement of a suprapubic tube. Our plan is to teach him to plug the catheter to do voiding trials and unplug the catheter to measure his PVR. We will start him on alpha blockers and 5 alpha reductase inhibitors after the procedure. Review of Systems Narrative: No fevers or chills No vision change or dysphasia No diabetes or thyroid dysfunction No shortness of breath, cough or hemoptysis No chest pain or palpitations c/o constipation. No nausea, vomiting, hepatitis, ulcers, jaundice No seizures, strokes or peripheral neuropathy No bleeding disorders or anemia No gout PFSH All Active Problems Bacteremia, escherichia coli (Acute) Bilateral lower extremity edema (Acute) Complicated UTI (urinary tract infection) (Acute) Sepsis (Acute) Acute UTI (Acute) Bandemia (Acute) Prostatic hypertrophy (Chronic) Mass of urinary bladder determined by ultrasound (Acute) Urinary retention with incomplete bladder emptying (Acute) Urinary retention due to benign prostatic hyperplasia (Acute) BPH (benign prostatic hyperplasia) (Chronic) Essential hypertension (Acute) Rectal/anal hemorrhage (Acute) Skin lesion (Acute) Gastric polyp (Acute) Normal colonoscopy (Acute) Mass of left upper extremity (Acute) [facility] 2inch diameter fungating bleeding mass upper left extremity. Bacteremia (Acute) Post surgical complication (Acute) Unilateral inguinal hernia without obstruction or gangrene (Acute) Basal cell carcinoma of upper extremity (Acute) Medical History DVT (deep venous thrombosis) Elevated PSA Hyperlipidemia Hypertension Osteoarthritis, hip, bilateral Problem related to housing and economic circumstances Seborrheic dermatitis Septic arthritis Urinary retention Surgical History History of colonoscopy (~09/2021) History of esophagogastroduodenoscopy (EGD) (~09/2021) Unilateral inguinal hernia with mesh per pt. Right side per patient Social History Smoking/Tobacco Use Status: Never Smoking risk assessment performed?: Yes Alcohol Intake: current Alcohol Intake frequency: holidays/special occasions only Alcohol type: wine Drug use: Never Substance use type: does not use Current gender identity: male Do you feel safe at home: Yes Do you feel safe in your relationship?: Yes Additional Social history: lives alone Meds Allergies and Home Medications Allergies Allergy/AdvReac Type Severity Reaction Status Date / Time amlodipine Allergy Unknown UNKNOWN Verified 05/29/22 07:38 sulfamethoxazole Allergy Unknown UNKNOWN Verified 05/29/22 07:38 [From Sulfamethoxazole-Trimethoprim] trimethoprim Allergy Unknown Verified 05/29/22 07:38 [From Sulfamethoxazole-Trimethoprim] Home Medications Medication Instructions Recorded Confirmed Type acetaminophen 325 mg tablet 325 - 650 mg PO Q4H PRN PRN #0 tabs 05/05/22 05/27/22 Rx docusate sodium 100 mg capsule 100 mg PO TID PRN PRN #0 caps 05/05/22 05/27/22 Rx (Colace) ferrous sulfate 325 mg (65 mg 325 mg PO BID #0 tabs 05/05/22 05/27/22 Rx iron) tablet Exam Const General: cooperative Neck Neck: supple Resp Effort & Inspection: normal respiratory effort Auscultation: clear to auscultation bilaterally Cardio Rate: regular rate Rhythm: regular rhythm GI Palpation: soft Neuro General: patient alert, patient awake and patient oriented x3 Results Last Vital Signs Temp 36.1 C L 05/29/22 07:40 Pulse 70 05/29/22 07:40 Resp 18 05/29/22 07:40 BP 127/65 05/29/22 07:40 Pulse Ox 99 05/29/22 07:40 Time Spent Time spent with Patient: <40 minutes Time was spent: other
[2022-05-29] MEDS: ceFAZolin 2 GM/50 ML BAG IVPB (08:59)
[2022-05-29] MEDS: Lidocaine 2% Jelly 6 ML SYR (10:03)
--- NOTE | 2022-05-29 10:27 | ROE_ITS ---
Date of service: 05/29/22 Time of Service: 10:27 Operative Note Operative Note DATE OF PROCEDURE: 05/29/22 PRE-OP DIAGNOSIS: Urinary retention POST-OP DIAGNOSIS: same PROCEDURE: cystoscopy with insertion of suprapubic tube SURGEON: Anjum Wallis ANESTHESIA TYPE: General LMA/ETT Refer to Anesthesia Record ESTIMATED BLOOD LOSS: 25 PATHOLOGY: none sent COMPLICATIONS: None Patient was transported to: PACU Patient's condition: stable Implants: 20 Malagasy suprapubic tube with 10 cc sterile water in balloon Indications: This is a 76-year-old gentleman who has a history of obstructive uropathy. His renal function improved with placement of a urethral catheter, but the patient has quite a bit of discomfort from the catheter. He is not able to perform CIC. He is not interested in more invasive surgical treatments, so he is agreeable to placement of a suprapubic tube. Findings: Diffusely enlarged prostate Procedure Description: The patient was given IV antibiotics and brought to the operating room on 05/29/2022. After successful induction of general anesthesia without intubation, he was placed in the dorsal lithotomy position. His genitalia and perineum and suprapubic area were all prepped and draped. 2% Xylocaine jelly was instilled into the urethra to act as a local anesthetic. A curved Judith retractor was passed through the urethra into the bladder. The tip of the Judith retractor was held up against the abdominal wall. The abdominal wall was incised sharply and the tip of the Judith retractor was brought out onto the abdomen. The jaws of the lousy retractor were opened and initially a 16 Malagasy catheter was grasped and pulled back down through the suprapubic tract. The catheter was positioned cystoscopically, but and spite of multiple hand irrigations of the catheter, I did not obtain what I felt to be adequate drainage. We then replaced the Judith retractor and this time we utilized a 20 Malagasy catheter. The catheter was grasped and pulled down through the suprapubic tract into the bladder and urethra. I then passed a 22 Malagasy cystoscope and inspected the urethra and bladder using both a 30 and a 70 degree lens. Once the catheter was appropriately positioned, the catheter balloon was inflated with 10 cc of sterile water. I was then able to easily irrigate the catheter using a Jarrett syringe. The catheter was hooked to gravity drainage. A dry sterile dressing was then applied to the suprapubic site. He tolerated this procedure well and was taken to the recovery room in stable condition.
[2022-05-29] MEDS: fentaNYL 100 MCG/2 ML VIAL IVP ×2 (10:35→10:44)
--- NOTE | 2022-05-29 10:39 | W.ANESPOSTOP ---
Postoperative Evaluation Date, Time and Location Date Performed: 05/29/22 Time Performed: 10:39 Patient Location: PACU Vital Signs Most Recent Imported Vital Signs: Most Recent Vital Signs Temp Pulse Resp BP Pulse Ox 36.3 C L 45 L 15 126/65 99 05/29/22 10:30 05/29/22 10:30 05/29/22 10:30 05/29/22 10:30 05/29/22 10:30 Pain Score Most Recent Pain Score: Most Recent Pain Score Pain Level 5 05/29/22 10:30 Assessment Mental Status: Awake (Alert & Oriented to Patient Baseline) Airway and Respiratory Function: Patent airway with normal (patient baseline) respiratory exam Cardiovascular Function: Hemodynamically Stable Hydration Status: Adequately Hydrated Nausea & Vomiting: No Nausea or Vomiting Pain: Pain is Moderate or Severe Postoperative Pain Management: Pain being addressed with medication Peripheral Nerve Block: Patient did not receive a nerve block
[2022-05-29] MEDS: Finasteride 5 MG TAB PO (12:35)
[2022-05-29] MEDS: Tamsulosin 0.4 MG CAPCR PO (12:35)
[2022-05-29] MEDS: ceFAZolin 1 GM/50 ML BAG IVPB ×3 (12:55→23:31)
[2022-05-30] MEDS: Lactated Ringers 1,000 ML 80 ML IV (01:25)
--- NOTE | 2022-05-30 07:09 | PGE_ITS ---
Date of Service Date of service: 05/30/22 Time of Service: 07:09 Assessment and Plan Assessment and plan (1) History of urinary retention: Status: Resolved Assessment and plan: We can safely discontinue his IV fluid and a biotics. We will discontinue the catheter drainage bag and begin plugging the catheter. We will asked the patient to void every 4 hours while he is awake and then unplug the catheter (whether or not he is able to void) and document the outputs from each method of bladder emptying. I will ask physical therapy to see him to help with gait training Ultimately, patient disposition will be our biggest issue. He will not need much more inpatient hospital services, but it is probably not safe for him to go home alone at this point in time. I believe he may have maxed out on his insurance stay at the [facility] and [facility]. The patient expresses an interest in going back home, but he will certainly need additional services to make going home a safe option for him. I am going to rely on our medical case manager to help with safe placement for this gentleman. Subjective Subjective Interval history since last seen: His catheter has been draining without clots. The patient is concerned about the amount of blood in the urine, but the output is transparent even though it is blood-tinged. He is able to tolerate oral nutrition Exam Narrative Exam Narrative: He is afebrile The urine is pink-tinged but transparent in the catheter tubing He is awake and alert Objective Last Vital Signs Temp 35.9 C L 05/29/22 23:55 Pulse 80 05/29/22 23:55 Resp 18 05/29/22 23:55 BP 114/70 05/29/22 23:55 Pulse Ox 97 05/29/22 23:55 Time Spent with Patient Time Spent with Patient: <25 minutes Time was spent: preparing to see the patient(eg.review tests), obtaining and/or reviewing separately otained hiistory and counseling the patient
[2022-05-30] MEDS: Tamsulosin 0.4 MG CAPCR PO (07:49)
[2022-05-30] MEDS: Finasteride 5 MG TAB PO (07:49)
--- NOTE | 2022-05-30 10:14 | PT.INIE ---
Date of service: 05/30/22 Time of Service: 10:15 PT Notes Visit Reasons: Urinary Retention Inpatient Physical Therapy Evaluation Date: 05/30/22 Referring Doctor: Anjum Wallis PT Orders: PT CONSULT: Urgent: Safety consult for D/C Precautions: Standard Patient Profile/Admitting Diagnosis: This is a 76 year old man who has a history of urinary retention and obstructive uropathy.? He is S/P insertion of a suprapubic tube on 05/29/22.? He has been referred to PT for assessment of safety to assist discharge planning. He has been at [facility] x 6 weeks S/P sepsis, having just been cleared to return home. ? PMHX: All Active Problems? Bacteremia, escherichia coli (Acute) Bilateral lower extremity edema (Acute) Complicated UTI (urinary tract infection) (Acute) Sepsis (Acute) Acute UTI (Acute) Bandemia (Acute) Prostatic hypertrophy (Chronic) Mass of urinary bladder determined by ultrasound (Acute) Urinary retention with incomplete bladder emptying (Acute) Urinary retention due to benign prostatic hyperplasia (Acute) BPH (benign prostatic hyperplasia) (Chronic) Essential hypertension (Acute) Rectal/anal hemorrhage (Acute) Skin lesion (Acute) Gastric polyp (Acute) Normal colonoscopy (Acute) Mass of left upper extremity (Acute[facility] 2inch diameter fungating bleeding mass upper left extremity.Bacteremia (Acute) Post surgical complication (Acute) Unilateral inguinal hernia without obstruction or gangrene (Acute) Basal cell carcinoma of upper extremity (Acute) Medical History? DVT (deep venous thrombosis) Elevated PSA Hyperlipidemia Hypertension Osteoarthritis, hip, bilateral Problem related to housing and economic circumstances Seborrheic dermatitis Septic arthritis Urinary retention Surgical History? History of colonoscopy (~09/2021) History of esophagogastroduodenoscopy (EGD) (~09/2021) Unilateral inguinal hernia with mesh per pt. Right side per patient Social History/Home Situation: Lives alone, a 2-story home. Can sleep on main level if he needs to. He spent the last 6 weeks at [facility] post sepsis. One step to enter home. Current Functional Limitations: Dependent on rollator and supervision for ambulation and stair ambulation. Unable to carry objects and walk at the same time, has to transport via rollator seat. Equipment Owned/DME: 2 rollators Subjective: Wants to return home, feels he is physically able. He lives alone, but reports good family support. He initially states that he will be doing his own grocery shopping, later retracts and says his sister has already gone for him and prepared meals (in the presence of case management when realizing discharge planning is occurring.) Objective: General Observation: Up walking about the room with rollator. Bent over, femoral adduction, knees bent with ambulation and movement. Very dependent on UE's for balance and standing in rollator. Mental Status: Not realistic, alert to person, place and time Pain: 5/10 L hip and lower abdomen S/P surgery as noted above, and reports chronic hip pain Vital Signs: Stable, per nursing notes ROM: Right Upper Extremity: Grossly WFL Left Upper Extremity: Grossly WFL Right Lower Extremity: Grossly WFL Left Lower Extremity: Grossly WFL Strength: Right Upper Extremity: Grossly 4/5 Left Upper Extremity: Grossly 4/5 Right Lower Extremity: Grossly 3+/5 Left Lower Extremity: Grossly 3+/5 Sensation: Intact Bed Mobility/Transfers: Independent bed mobility, distant supervision with transfers Gait: Rollator, forward bent, femoral adduction, dependent on UE's. 200 ft, distnant supervision with rollator. 4 stairs up and down with 2 rails, distant supervision. Balance: Stage 4 Balance Test Time (seconds) Feet together 10 Partial tandem 10 Tandem 3 One foot Unable Static Sitting: Good Dynamic Sitting: Good Static Standing: Good Dynamic Standing: Fair Informed Consent/Education: Patient instructed in purpose of PT consult and plan of care. Assessment: Patient is a 76 year old male referred to physical therapy for assist of D/C planning S/P suprapubic tube insertion 05/29/22, and post [facility] stay x 6 weeks post sepsis for rehab to return home. Patient presents with clinical signs and symptoms consistent with poor balance and gait impairment, dependent on rollator. While patient is demonstrating ability to be functional, he certainly requires supervision with more dynamic activities, such as changing direction or carrying objects or with challenges of a home environment given his impairments, 100% supervision is highly suggested if he returns home. Especially when considering independent living needs such as grocery shopping, etc. He will require HHPT service to improve gait and balance. He is a fall risk, given his balance scores, LE weakness, and dependence on rollator. Patient is assessed as a Low 45316 complexity based on the following: History: See comorbdities Examination: LE weakness, poor balance, unsteady gait, dependence of rollator, requires 100% distant supervision given he lives alone Presentation: Stable Decision Making: Moderate Plan of Care/Treatment Plan: Patient is being discharged home per communication provided by case management. DISCHARGE RECOMMENDATIONS: 100% supervision if being discharged home, due to poor balance and fall risk, and challenge with more dynamic activities required of independent living. HHPT service. TREATMENT CODE/TIME: 13851, 45 minutes
--- NOTE | 2022-05-30 12:29 | INITIAL_ITS ---
- If Service Date Differs Date of service: 05/30/22 Time of Service: 12:30 Care Management Initial Assess REASON FOR HOSPITALIZATION:: Urinary Retention PAST MEDICAL HISTORY/PAST SURGICAL HISTORY:: All Active Problems. Bacteremia, escherichia coli (Acute). Bilateral lower extremity edema (Acute). Complicated UTI (urinary tract infection) (Acute). Sepsis (Acute). Acute UTI (Acute). Bandemia (Acute). Prostatic hypertrophy (Chronic). Mass of urinary bladder determined by ultrasound (Acute). Urinary retention with incomplete bladder emptying (Acute). Urinary retention due to benign prostatic hyperplasia (Acute). BPH (benign prostatic hyperplasia) (Chronic). Essential hypertension (Acute). Rectal/anal hemorrhage (Acute). Skin lesion (Acute). Gastric polyp (Acute). Normal colonoscopy (Acute). Mass of left upper extremity (Acute). per [place] referral 2inch diameter fungating bleeding mass upper left extremity.. Bacteremia (Acute). Post surgical complication (Acute). Unilateral inguinal hernia without obstruction or gangrene (Acute). Basal cell carcinoma of upper extremity (Acute). Medical History. DVT (deep venous thrombosis). Elevated PSA. Hyperlipidemia. Hypertension. Osteoarthritis, hip, bilateral. Problem related to housing and economic circumstances. Seborrheic dermatitis. Septic arthritis. Urinary retention. Surgical History. History of colonoscopy (~09/2021). History of esophagogastroduodenoscopy (EGD) (~09/2021). Unilateral inguinal hernia. with mesh per pt. Right side per patient PREVIOUS FUNCTIONAL STATUS/SOCIAL/FAMILY SUPPORTS:: Thong lives alone in [facility]. He graduated from [employer] then joined the [employer]. He is [facility] connected. His primary support person is his sister Aleah who lives in [place], [place]. She comes to the area frequently and stays at her Condo in [place]. Thong shares that he has children, but they are not close. Thong has a flight of stairs at his home which he reportedly manages fine, but he has a chair he can sleep in on the main floor if necessary. Here Thong requires assistance with his ADL's. He has [facility] RN/PT/OT. [facility], [facility] and she is in the process of setting him up with additional services to help him stay at home. CURRENT FUNCTIONAL STATUS:: Thong was resting on his 4WW when CM met with him, during his PT evaluation. He stated that he spoke to the doctor this morning, who reported that he would not be discharging today. CM discussed his discharge plan, and Thong was very adamant that he would not return to the rehab facility. After completing his PT evaluation, it was determined that he is able to walk household distances, and he was successful with the stairs. CM discussed MOW with Thong, which he declined. He stated that his sister will support him with groceries, as well as a nephew, both of which check on him frequently, according to Thong. He reported that he has a person who plows for him, and he will coordinate his driveway being plowed prior to returning home. He does not feel ready for discharge today. CM provided education surrounding his observation stay, as he will likely be discharged within 48 hours, as long as he is medically stable. He will have new orders for HH RN, PT, OT, [facility]. CM will continue to follow. ADVANCE DIRECTIVES:: Not on file. Has patient been provided with info about the portal/API?: Yes Did the patient sign up for the portal?: No CODE STATUS:: Full Code INSURANCE COVERAGE / FINANCIAL ISSUES:: [facility] CURRENT HOME/COMMUNITY SERVICES/EQUIPMENT:: [facility] Coordnator is Opal at [facility]. [facility] RN,PT,OT. 4 Wheeled Walker. [facility]. PRIMARY CARE PHYSICIAN:: Ghada Avelar POTENTIAL DISCHARGE NEEDS:: New HH orders for RN, PT, OT, [facility]; follow up appointments; transportation. PATIENT/FAMILY EDUCATION NEEDS:: Review discharge instructions, limitations, medications and plan to follow up with [facility] and community providers. Discuss ask me three and goals of self care. ANTICIPATED BARRIERS TO DISCHARGE:: None identified. TRANSPORTATION:: Via [facility] PLAN:: Thong will return home with new orders for HH RN, PT, OT, [facility] once he is medically ready for discharge. He will transport via [facility] private vehicle, coordinated by JOSE MANUEL. He will follow up with Urology, his PCP, and his discharge plan of care. CM will continue to follow.
--- NOTE | 2022-05-30 14:46 | PDOC.HHF2F ---
Home Health Referral Home Health Orders Clinical synopsis of why skilled professionals are needed: This gentleman has a history of obstructive uropathy. He has a new suprapubic tube in place and is being started on maximal medical therapy with tamsulosin and finasteride. He will be plugging his suprapubic tube to allow his bladder to fill. Every 4 hours while he is awake, he will be attempting to void and measuring his voided volume. He will then remove the plug from the catheter, allow the bladder to drain and measure the catheterized volumes. He will then replaced the plug and repeat the process. Overnight, he can leave the plug in place without needing to drain. This is a new process for this gentleman and he will need catheter care teaching and reinforcement. Registered Nurse: Check all that apply Instruct on new or changed medication(s)/assess compliance: Ordered Instruct on, and maintenance of, urinary device: Ordered Assess for exacerbation of medical condition, instruct patient/caregivers on signs and symptoms to report for early detection: Ordered Other: Bulb suction surgical drain management Physical Therapist: Check all that apply Increase strength & endurance for safe mobility at home: Ordered To design/establish home maintenance program: Ordered Fall reduction therapy program for patient with history of frequent falls: Ordered Home safety evaluation and teaching/gait training including stair management (if applicable): Ordered Occupational Therapist: Evaluate and treat for patient unable to perform ADL/IADL/self-care: Ordered Upper extremity strengthening, range and motion: Ordered Director Of Enterprise Applications: Assist with community resources: Ordered Assist with electronics worker care planning: Ordered Home Bound Status Requires the aid of supportive device (check all that apply): Walker Encounter Date and Reason: I certify that a FTF encounter for this patient was performed on May 30, 2022 and that such encounter was related to the primary reason the patient requires home health services. The encounter was conducted in the following manner: By me as the certifying physician, MUSIC ENGINEER, PA or By an inpatient physician, MUSIC ENGINEER or PA during an inpatient stay who communicated findings to me, Certification And Authentication I certify that I composed the above information based on my clinical judgment relating to this patient's medical condition and, if applicable, clinical findings communicated to me by the NPP or inpatient physician who performed the FTF encounter. Name of Provider that will be monitoring home health services: Anjum Wallis
--- NOTE | 2022-05-30 15:14 | W.PM.DS.N ---
Date of service: 05/31/22 Time of Service: 07:15 DS: Diagnosis Discharge Diagnosis (1) History of urinary retention: Status: Resolved Asessment and Plan: Now has suprapubic tube Discharge Plan Disposition Condition: Improving Discharge Details Reason For Visit: Urinary Retention Admit Date/Time: 05/29/22 10:12 Admit Provider: Anjum Wallis Attending Provider: Anjum Wallis Primary Care Provider: ALEX DÍAZ Hospital Course Hospital Course: The patient was discharged from [facility] and rehab facility and was brought to the hospital on 05/29/2022. He underwent cystoscopy with placement of a suprapubic tube. He had an observation admission following the procedure. He was maintained on IV fluid and antibiotics for the first night. On postoperative day #1, we discontinued the IV fluid and antibiotics. We began plugging his suprapubic catheter and teaching the patient how to plug and unplug the catheter. We had physical therapy see the patient for gait and strength training. They found that he had improved significantly compared to his previous hospitalization. He is being discharged to home on 05/31/2022 with home health services. Home Meds and New Rx's Prescriptions: New tamsulosin 0.4 mg capsule 0.4 mg PO DAILY Qty: 90 4RF finasteride 5 mg tablet 5 mg PO DAILY Qty: 90 4RF No Action acetaminophen 325 mg Tablet 325 - 650 mg PO Q4H PRN PRNQty: 0 0RF ferrous sulfate 325 mg (65 mg iron) Tablet 325 mg PO BID Qty: 0 0RF docusate sodium [Colace] 100 mg Capsule 100 mg PO TID PRN PRNQty: 0 0RF Discharge Instructions Additional Instructions: Please attempt to urinate (whether you feel the need to or not) every 4 hours while you are awake. A good schedule would be : 1. When you wake up in the morning 2. Noon time 3. At 4 PM 4. Right before bedtime Measure and record the amount of urine obtained when you urinate. Immediately after urinating, unplug the catheter and drain your bladder. Measure and record the amount of urine obtained from the catheter. Then replace the catheter plug. Please repeat this procedure every 4 hours and immediately before going to bed. You can leave the catheter plugged all night to get some sleep. Bring the record of how much you are urinating and how much you are getting from the catheter to the office when you come for your follow-up visit Follow-up with Dr Wallis in 4 to 6 weeks for your first suprapubic tube change. Dressing change to the suprapubic site as needed. After 2 or 3 days, it is OK to leave the tube site without a dressing. It is OK to shower with the tube plugged Equipment/Supplies: Walker Activity:: Activity as Tolerated Remove Dressings/Wound Care:: 48 hours Shower/Bathe:: 24 hours Activity:: Activity as Tolerated Equipment/Supplies:: Walker Diet:: As Tolerated Discharge Data Discharge Physician: Anjum Wallis DS: Summary Time Spent with Patient providing and/or coordinating discharge services: Less than 30 minutes Status at Discharge Functional status at discharge: uses cane/walker Overall status at discharge: patient is progressing back to baseline Mental Status: mental status grossly normal Speech and Movement: speech and movement normal Mood: congruent mood Affect: normal affect Exam Narrative Exam Narrative: At the time of urgent, he does not appear acutely ill. He appears more chronically ill His vital signs are documented elsewhere in this chart His lungs are clear Cardiac exam shows a regular rate and rhythm The suprapubic tube site is intact with no surrounding erythema. He is awake and alert. Psych Mental Status: mental status grossly normal Speech and Movement: speech and movement normal Mood: congruent mood Affect: normal affect DS: Data Vitals/I&O Vitals and I&O: Vital Signs Temperature 35.9 C L 05/29/22 23:55 Temperature Source Tympanic 05/29/22 23:55 Pulse 80 05/29/22 23:55 Pulse Rhythm Regular 05/30/22 08:27 Respiratory Rate 18 05/29/22 23:55 Respiratory Effort Normal, Non-Labored 05/30/22 08:27 Respiratory Depth Normal 05/30/22 08:27 Respiratory Pattern Normal 05/30/22 08:27 Blood Pressure 114/70 05/29/22 23:55 Pulse Oximetry 97 05/29/22 23:55 Respiratory End-tidal CO2 28 05/29/22 10:50 Oxygen Delivery Method Room Air 05/29/22 23:55 Oxygen Flow Rate 0 05/29/22 23:55 Pain Level 0 05/29/22 23:55 Comment pt refusing vital signs at this time. 05/30/22 07:17 Intake & Output 05/29/22 05/30/22 05/30/22 23:59 11:59 23:59 Intake Total 100 / 2144.658 7839.667 / 1578.667 Output Total 2300 / 2450 800 / 1090 290 / 1090 Balance -2200 / -913.333 778.667 / 488.667 -290 / 488.667 Intake: IV 100 / 8560.204 9781.667 / 1578.667 Output: Urine 2300 / 2450 800 / 1090 290 / 1090 Other: Urine Color Dark Red Dark Red Alonso Dark Red Urine Appearance Hematuria Comment catheter plugged at this time per orders, to be emptied Q4 hours. PFSH All Active Problems Bacteremia, escherichia coli (Acute) Bilateral lower extremity edema (Acute) Complicated UTI (urinary tract infection) (Acute) Sepsis (Acute) Acute UTI (Acute) Bandemia (Acute) Prostatic hypertrophy (Chronic) Mass of urinary bladder determined by ultrasound (Acute) Urinary retention with incomplete bladder emptying (Acute) Urinary retention due to benign prostatic hyperplasia (Acute) BPH (benign prostatic hyperplasia) (Chronic) Essential hypertension (Acute) Rectal/anal hemorrhage (Acute) Skin lesion (Acute) Gastric polyp (Acute) Normal colonoscopy (Acute) Mass of left upper extremity (Acute) per [facility] referral 2inch diameter fungating bleeding mass upper left extremity. Bacteremia (Acute) Post surgical complication (Acute) Unilateral inguinal hernia without obstruction or gangrene (Acute) Basal cell carcinoma of upper extremity (Acute) Medical History DVT (deep venous thrombosis) Elevated PSA Hyperlipidemia Hypertension Osteoarthritis, hip, bilateral Problem related to housing and economic circumstances Seborrheic dermatitis Septic arthritis Urinary retention Surgical History History of colonoscopy (~09/2021) History of esophagogastroduodenoscopy (EGD) (~09/2021) Unilateral inguinal hernia with mesh per pt. Right side per patient Social History Smoking/Tobacco Use Status: Never Smoking risk assessment performed?: Yes Alcohol Intake: current Alcohol Intake frequency: holidays/special occasions only Alcohol type: wine Drug use: Never Substance use type: does not use Current gender identity: male Do you feel safe at home: Yes Do you feel safe in your relationship?: Yes Additional Social history: lives alone Time Spent with Patient Time Spent with Patient: <45 minutes Time was spent: care coordination
[2022-05-30 20:58] VITALS: RESP 18; TEMP 36.6; O2SAT 99
--- NOTE | 2022-05-31 07:23 | PDOC.HHF2F_ITS ---
Home Health Referral Home Health Orders Clinical synopsis of why skilled professionals are needed: Suprapubic care with reinforcement/teaching of plugging and unplugging of his catheter. Our proposed schedule is that the patient leave his SP tube plugged throughout the night. He should attempt to urinate every four hours while awake then unplug the catheter to drain his bladder. He should measure keep a log of the volume he voids and the volume that is drained from the catheter each time then replug the catheter and start again. A reasonable starting schedule for him would be: 1. In morning as soon as he gets up 2. Noontime 3. 4 PM 4. Right before bedtime He should bring his volume log with him to his followup visit in 4 to 6 weeks Medical diagnosis necessitation home health referral: Obstructive uropathy Registered Nurse: Check all that apply Instruct on new or changed medication(s)/assess compliance: Ordered Instruct on, and maintenance of, urinary device: Ordered Assess for exacerbation of medical condition, instruct patient/caregivers on signs and symptoms to report for early detection: Ordered Other: Bulb suction surgical drain management Physical Therapist: Check all that apply Increase strength & endurance for safe mobility at home: Ordered To design/establish home maintenance program: Ordered Fall reduction therapy program for patient with history of frequent falls: Ordered Home safety evaluation and teaching/gait training including stair management (if applicable): Ordered Occupational Therapist: Evaluate and treat for patient unable to perform ADL/IADL/self-care: Ordered Tight Barrel Inspector: Assist with community resources: Ordered Assist with alf care planning: Ordered Home Bound Status Requires the aid of supportive device (check all that apply): Walker Encounter Date and Reason: I certify that a FTF encounter for this patient was performed on May 31, 2022 and that such encounter was related to the primary reason the patient requires home health services. The encounter was conducted in the following manner: * By me as the certifying physician, MEDICAL TECHNOLOGIST CLINICAL, PA or * By an inpatient physician, MEDICAL TECHNOLOGIST CLINICAL or PA during an inpatient stay who communicated findings to me, Certification And Authentication I certify that I composed the above information based on my clinical judgment relating to this patient's medical condition and, if applicable, clinical findings communicated to me by the NPP or inpatient physician who performed the FTF encounter. Name of Provider that will be monitoring home health services: Anjum Wallis
[2022-05-31] MEDS: Tamsulosin 0.4 MG CAPCR PO (07:43)
[2022-05-31] MEDS: Finasteride 5 MG TAB PO (07:43)
--- NOTE | 2022-05-31 14:09 | CMDISCH_ITS ---
- If Service Date Differs Date of service: 05/31/22 Time of Service: 14:10 LACE Index Scoring Tool - Questions: Length of Stay (in days): 2 E.D. Visits: 3 Care Management Discharge Reason for Hospitalization: Urinary Retention Discharge Plan: Thong is discharged home with new [facility] RN/PT/OT/CASTING MOLDER services. He is transported via [facility] private vehicle (confirmation is recieved that his driveway is plowed). Thong will follow up with community providers and discharge plan of care as prescribed. Follow-up with Dr Wallis to be scheduled in 4 to 6 weeks for his initial suprapubic tube change. Patient/Family Education Needs: Review discharge instructions, limitations, medications and plan to follow up with community providers and [facility]. Discuss ask me three and goals of self care. Services Needed at Discharge: Home Health Care Services (New [facility] RN/PT/OT/CASTING MOLDER. CM notified, order faxed.), Transportation ([facility] private vehicle, coordinated by CM. )
== END 2022-05-31 13:28 | disposition home or self-care (01) ==
LOC: MS 11:18
PROVIDERS: Admitting Provider Urology; PCP Internal Medicine; Visit Provider Urology
PROC: (CPT 51102; principal; 2022-05-29 09:00)
DX: R33.9 Retention of urine, unspecified (principal); I10 Essential (primary) hypertension; Z86.718 Personal history of other venous thrombosis and embolism; E78.5 Hyperlipidemia, unspecified; N40.1 Benign prostatic hyperplasia with lower urinary tract symptoms; N13.8 Other obstructive and reflux uropathy
CPT/HCPCS: 51102; 96365; 97161; G0378; J0131; J0690; J2405; J2704; J3010

== ENCOUNTER 2022-07-01 16:10 | Emergency (ER) | payer OTHER, SELFPAY ==
[2022-07-01 16:25] VITALS: BP 131/65; PULSE 72; RESP 18; TEMP 36.8; O2SAT 100
[2022-07-01 18:08] LABS: Bilirubin Negative (Negative); Blood Large (Negative); Glucose Negative (Negative); Ketones Negative (Negative); Leukocyte Esterase Moderate (Negative); Nitrite Positive (Negative); Urobilinogen 0.2 mg/dL (Up to 0.2)
[2022-07-01 18:23] LABS: Clarity Cloudy (Clear); WBC >50 HPF (0-5)
[2022-07-01 18:24] LABS: Bacteria Many HPF (Negative); C & S Indicated? Yes; Casts Negative LPF (Negative); Crystals Negative HPF (Negative); Epithelial Cells Few HPF (Negative); Mucus Negative (Negative); Other Cells Negative (Negative); RBC 20-50 HPF (0-2)
[2022-07-01] MEDS: Cefpodoxime 200 MG TAB PO (18:36)
--- NOTE | 2022-07-01 18:36 | ED.GENADUL_ITS ---
Discharge Plan Disposition Patient Disposition: Home Discharge Details Clinical Impression: Encounter for suprapubic catheter care, Complicated UTI (urinary tract infection) Primary Care Provider: ALEX DÍAZ ED Provider: Murali Dozier Home Meds and New Rx's Prescriptions: New cefpodoxime 200 mg tablet 200 mg PO BID Qty: 14 0RF Rx Instructions: must administer with a meal/food Continued tamsulosin 0.4 mg capsule 0.4 mg PO DAILY Qty: 90 4RF finasteride 5 mg tablet 5 mg PO DAILY Qty: 90 4RF acetaminophen 325 mg Tablet 325 - 650 mg PO Q4H PRN PRNQty: 0 0RF ferrous sulfate 325 mg (65 mg iron) Tablet 325 mg PO BID Qty: 0 0RF docusate sodium [Colace] 100 mg Capsule 100 mg PO TID PRN PRNQty: 0 0RF Discharge Instructions Instructions: Urinary Tract Infection in Men (ED) Additional Instructions: You have been given your first dose of antibiotic this evening but please go to the pharmacy first thing tomorrow morning and start your antibiotic right away. Return to the emergency department for any new or significant worsening of your condition or further concerns otherwise follow-up with urology as directed. Referrals: [facility] [Provider Group] - 07/07/22 (Unless recommended earlier keep your previously scheduled appointment) Discharge Data Discharge Date/Time-TO BE ENTERED AT DEPARTURE: 07/01/22 18:45 Medical Decision Making Patient presenting to the emergency department for chief complaint of suprapubic catheter issues. Patient states some leaking from around the distal aspect of the catheter and that the leg attachment came off of his leg and he had to tape it down. Patient denies all other complaints including fever chills, confusion, increased weakness pain or discomfort. Patient does state that he has been slightly overwhelmed returning back home after being admitted for a long time. He does state that the home health nurse that came to his house today he does not like her and has had poor interactions with her and did not want her to help him today. He did try to go to urology but due to difficulty of getting out of the home he decided to come to the emergency department. Physical exam is unremarkable with soft nontender abdomen, normal active bowel sounds, normal appearing suprapubic catheter site. Reviewed patient's vital signs and patient is normotensive, nontachycardic, afebrile with completely normal vital signs so I do not feel that patient has urosepsis or severe decline of condition such as during his previous hospital admission. Did receive heads up from urology office patient was going to come to us and they recommended urinalysis. Nurse practitioner also did recommend that patient keep catheter in place and do not change catheter out. direct support staff were able to put a StatLock on patient's leg which he stated is all he needed. Reviewed urinalysis that does show signs of infection. We will start patient on cefpodoxime given his indwelling suprapubic catheter and recent admission for urosepsis making him not a candidate for Keflex. After discussion of diagnosis and plan of care patient has no further needs, questions, or concerns and states clear understanding to return to the emergency department for any worsening symptoms. This documentation was generated using [employer] system, please disregard any oddities of phrase or misspellings. Medical Records Medical records reviewed: Yes I reviewed the patient's medical records. Medical records narrative: Previous urinalysis and culture results Lab Data Lab results reviewed: Yes I reviewed the patient's lab results. HPI General Mode of arrival: ambulatory . Date/Time Provider Initiated Documentation: 07/01/22 16:30 . Limitations to Documentation: no limitations . Information obtained by: patient, RN notes reviewed and old records reviewed . History of Present Illness 76 year old M presents to the emergency department with the chief complaint of Suprapubic catheter complication, Patient started experiencing this day(s) (1) Patient notes no other symptoms.. Patient did receive the following treatments prior to arrival, none Related Data Home Medications Medication Instructions Recorded Confirmed acetaminophen 325 mg tablet 325 - 650 mg PO Q4H PRN PRN #0 tabs 05/05/22 07/01/22 docusate sodium 100 mg capsule 100 mg PO TID PRN PRN #0 caps 05/05/22 07/01/22 (Colace) ferrous sulfate 325 mg (65 mg 325 mg PO BID #0 tabs 05/05/22 07/01/22 iron) tablet finasteride 5 mg tablet 5 mg PO DAILY shrink prostate #90 05/30/22 07/01/22 tabs tamsulosin 0.4 mg capsule 0.4 mg PO DAILY urination #90 caps 05/30/22 07/01/22 cefpodoxime 200 mg tablet 200 mg PO BID #14 tabs 07/01/22 Previous Rx's Medication Instructions Recorded acetaminophen 325 mg tablet 325 - 650 mg PO Q4H PRN PRN #0 tabs 05/05/22 docusate sodium 100 mg capsule 100 mg PO TID PRN PRN #0 caps 05/05/22 (Colace) ferrous sulfate 325 mg (65 mg 325 mg PO BID #0 tabs 05/05/22 iron) tablet finasteride 5 mg tablet 5 mg PO DAILY shrink prostate #90 05/30/22 tabs tamsulosin 0.4 mg capsule 0.4 mg PO DAILY urination #90 caps 05/30/22 cefpodoxime 200 mg tablet 200 mg PO BID #14 tabs 07/01/22 Allergies Allergy/AdvReac Type Severity Reaction Status Date / Time amlodipine Allergy Unknown UNKNOWN Verified 05/29/22 07:38 sulfamethoxazole Allergy Unknown UNKNOWN Verified 05/29/22 07:38 [From Sulfamethoxazole-Trimethoprim] trimethoprim Allergy Unknown Verified 05/29/22 07:38 [From Sulfamethoxazole-Trimethoprim] General Stated Complaint: Urinary MISSY: 4 Review of Systems Constitutional Constitutional: Denies chills and Denies fever(s) Cardiovascular Cardiovascular: Denies chest pain and Denies dyspnea Respiratory Respiratory: Denies cough and Denies dyspnea Gastrointestinal Gastrointestinal: Denies abdominal pain, Denies change in bowel habits, Denies nausea and Denies vomiting Genitourinary Genitourinary: Reports as per HPI, Denies hematuria, Denies difficulty urinating, Denies dysuria, Denies urinary hesitancy, Denies urinary incontinence and Denies urinary urgency Integumentary/Breasts Skin/Breast: Denies rash PFSH All Active Problems (Updated 07/01/22 @ 18:38 by Murali Dozeir NP) Encounter for suprapubic catheter care (Acute) Bacteremia, escherichia coli (Acute) Bilateral lower extremity edema (Acute) Complicated UTI (urinary tract infection) (Acute) Sepsis (Acute) Acute UTI (Acute) Bandemia (Acute) Prostatic hypertrophy (Chronic) Mass of urinary bladder determined by ultrasound (Acute) Urinary retention with incomplete bladder emptying (Acute) Urinary retention due to benign prostatic hyperplasia (Acute) BPH (benign prostatic hyperplasia) (Chronic) Essential hypertension (Acute) Rectal/anal hemorrhage (Acute) Skin lesion (Acute) Gastric polyp (Acute) Normal colonoscopy (Acute) Mass of left upper extremity (Acute) [facility] 2inch diameter fungating bleeding mass upper left extremity. Bacteremia (Acute) Post surgical complication (Acute) Unilateral inguinal hernia without obstruction or gangrene (Acute) Basal cell carcinoma of upper extremity (Acute) Medical History DVT (deep venous thrombosis) Elevated PSA Hyperlipidemia Hypertension Osteoarthritis, hip, bilateral Problem related to housing and economic circumstances Seborrheic dermatitis Septic arthritis Urinary retention Surgical History History of colonoscopy (~09/2021) History of esophagogastroduodenoscopy (EGD) (~09/2021) Unilateral inguinal hernia with mesh per pt. Right side per patient Social History Smoking/Tobacco Use Status: Never Smoking risk assessment performed?: Yes Alcohol Intake: current Alcohol Intake frequency: holidays/special occasions only Alcohol type: wine Drug use: Never Substance use type: does not use Current gender identity: male Do you feel safe at home: Yes Do you feel safe in your relationship?: Yes Additional Social history: lives alone Exam Const General: cooperative Orientation: alert and awake Resp Effort & Inspection: normal respiratory effort and able to speak in complete sentences Auscultation: clear to auscultation bilaterally Cardio Rate: regular rate Rhythm: regular rhythm Heart Sounds: S1 normal and S2 normal GI Inspection: other (Suprapubic catheter in place) Palpation: soft, not firm, no guarding, no masses, no pulsatile masses, not rigid and nontender Auscultation: normal bowel sounds Neuro General: patient alert, patient awake, patient oriented x3, gait normal and moves all extremities Course Vital Signs Vital signs: Vital Signs Temperature 36.8 C 07/01/22 16:25 Pulse 72 07/01/22 16:25 Respiratory Rate 18 07/01/22 16:25 Blood Pressure 131/65 07/01/22 16:25 Pulse Oximetry 100 07/01/22 16:25 Temperature 36.8 C 07/01/22 16:25 Temperature Source Temporal Artery Scan 07/01/22 16:25 Pulse 72 07/01/22 16:25 Respiratory Rate 18 07/01/22 16:25 Respiratory Effort Normal 07/01/22 18:27 Blood Pressure 131/65 07/01/22 16:25 Pulse Oximetry 100 07/01/22 16:25 Oxygen Delivery Method Room Air 07/01/22 16:25 Oxygen Flow Rate 0 07/01/22 16:25 Pain Level 0 07/01/22 16:25 Lab/Test Results Lab/Test Results: 07/01/22 17:35 Urine - Reflex from Ua Urine Culture - Pending Laboratory Tests Range/Units 07/01/22 17:35 Urine Color (Yellow) Yellow Urine Clarity (Clear) Cloudy Urine pH (5-8) 6.0 Ur Specific [place] (1.005-1.025) 1.020 Urine Protein (Negative) mg/dL 100 H Urine Ketones (Negative) mg/dL Negative Urine Blood (Negative) Large H Urine Nitrite (Negative) Positive H Urine Bilirubin (Negative) Negative Urine Urobilinogen (Up to 0.2) mg/dL 0.2 Ur Leukocyte Esterase (Negative) Moderate H Urine RBC (0-2) HPF 20-50 H Urine WBC (0-5) HPF >50 H Ur Epithelial Cells (Negative) HPF Few Urine Crystals (Negative) HPF Negative Urine Bacteria (Negative) HPF Many Urine Casts (Negative) LPF Negative Urine Mucus (Negative) Negative Urine Other (Negative) Negative Ur Culture Indicated? Yes Urine Glucose (Negative) mg/dL Negative
[2022-07-01 18:37] VITALS: BP 135/82; PULSE 72; RESP 16
--- NOTE | 2022-07-01 18:41 | NUR.NOTE ---
Nursing Note: Referral faxed to [facility] for complicated UTI/UC results. Spoke with Carmenza Davis.
== END 2022-07-01 18:45 | disposition home or self-care (01) ==
PROVIDERS: Emergency Provider Nurse Practitioner Family; PCP Internal Medicine
DX: T83.038A Leakage of other urinary catheter, initial encounter (principal); N39.0 Urinary tract infection, site not specified; I10 Essential (primary) hypertension; Z86.718 Personal history of other venous thrombosis and embolism; Y83.3 Surgical operation with formation of external stoma as the cause of abnormal reaction of the patient, or of later complication, without mention of misadventure at the time of the procedure
CPT/HCPCS: 87077; 99283; 81003; 81015; 87086; 87186; 99284

== ENCOUNTER 2022-10-19 17:26 | Emergency (ER) | payer OTHER, SELFPAY ==
[2022-10-19 17:30] VITALS: BP 139/67; PULSE 86; RESP 18; TEMP 37.2; O2SAT 98
--- NOTE | 2022-10-19 18:36 | ED.GENADUL_ITS ---
Discharge Plan Disposition Patient Disposition: Home Condition: Stable Discharge Details Clinical Impression: Hematuria Primary Care Provider: ALEX DÍAZ ED Provider: Trip Guerra Home Meds and New Rx's Prescriptions: New nitrofurantoin monohyd/m-cryst [Macrobid] 100 mg capsule 100 mg PO Q12H 5 Days Qty: 10 0RF Rx Instructions: must administer with a meal/food Continued cephalexin 250 mg capsule 250 mg PO DAILY Qty: 30 0RF acetaminophen 325 mg Tablet 325 - 650 mg PO Q4H PRN PRNQty: 0 0RF ferrous sulfate 325 mg (65 mg iron) Tablet 325 mg PO BID Qty: 0 0RF docusate sodium [Colace] 100 mg Capsule 100 mg PO TID PRN PRNQty: 0 0RF Discharge Instructions Instructions: Hematuria (ED) Additional Instructions: follow up with your urologist office as soon as possible if you feel more ill, have severe worsening pain or fevers return to the emergency department Medical Decision Making 77 yo male with chronic suprapubic catheter in place comes in with complaints of blood in the catheter when he drains it. He otherwise feels well, no fevers, no chills, no back pain or abdominal pain. He has a suprapubic catheter in place, there is blood in the catheter, it is not attached to a bag for drainage. Will have nursing place a bag to the catheter and irrigate to see if the blood is clear or not. pt draining blood tinged urine into bag after hand irrigation, no clots, tolerated well. Ua concerning for uti, has had dailey sensitive e coli in the past and will start on macrobid. He doesn't want to be d/c'd with the bag in place, prefers to drain his bladder on his own. He will f/u with urology and return precautions given Differential Diagnosis Differential Diagnosis: uti, catheter issue HPI General Mode of arrival: ambulatory . Date/Time Provider Initiated Documentation: 10/19/22 17:54 . Limitations to Documentation: no limitations . Information obtained by: patient . History of Present Illness 77 year old M presents to the emergency department with the chief complaint of blood in catheter, described as moderate, Patient started experiencing this day(s) (1) and it has been constant. No relieving factors improve symptom(s), No exacerbating factors reported . Patient notes no other symptoms.. Patient did receive the following treatments prior to arrival, none Related Data Home Medications Medication Instructions Recorded Confirmed acetaminophen 325 mg tablet 325 - 650 mg PO Q4H PRN PRN #0 tabs 05/05/22 10/19/22 docusate sodium 100 mg capsule 100 mg PO TID PRN PRN #0 caps 05/05/22 10/19/22 (Colace) ferrous sulfate 325 mg (65 mg 325 mg PO BID #0 tabs 05/05/22 10/19/22 iron) tablet cephalexin 250 mg capsule 250 mg PO DAILY #30 caps 07/07/22 07/07/22 nitrofurantoin 100 mg PO Q12H 5 days #10 caps 10/19/22 monohydrate/macrocrystals 100 mg capsule (Macrobid) Previous Rx's Medication Instructions Recorded acetaminophen 325 mg tablet 325 - 650 mg PO Q4H PRN PRN #0 tabs 05/05/22 docusate sodium 100 mg capsule 100 mg PO TID PRN PRN #0 caps 05/05/22 (Colace) ferrous sulfate 325 mg (65 mg 325 mg PO BID #0 tabs 05/05/22 iron) tablet cephalexin 250 mg capsule 250 mg PO DAILY #30 caps 07/07/22 nitrofurantoin 100 mg PO Q12H 5 days #10 caps 10/19/22 monohydrate/macrocrystals 100 mg capsule (Macrobid) Allergies Allergy/AdvReac Type Severity Reaction Status Date / Time amlodipine Allergy Unknown UNKNOWN Verified 05/29/22 07:38 sulfamethoxazole Allergy Unknown UNKNOWN Verified 05/29/22 07:38 [From Sulfamethoxazole-Trimethoprim] trimethoprim Allergy Unknown Verified 05/29/22 07:38 [From Sulfamethoxazole-Trimethoprim] General Stated Complaint: Urinary MISSY: 3 Review of Systems All systems reviewed & are unremarkable except as noted in HPI and below Constitutional Constitutional: Denies chills, Denies fever(s) and Denies weakness Cardiovascular Cardiovascular: Denies chest pain and Denies dyspnea Respiratory Respiratory: Denies cough and Denies dyspnea Gastrointestinal Gastrointestinal: Denies abdominal pain, Denies nausea and Denies vomiting Musculoskeletal Musculoskeletal: Denies joint swelling Integumentary/Breasts Skin/Breast: Denies rash Neurologic Neurologic: Denies weakness PFSH All Active Problems (Updated 10/19/22 @ 19:59 by Trip Guerra MD) Hematuria (Acute) Bacteremia, escherichia coli (Acute) Bilateral lower extremity edema (Acute) Complicated UTI (urinary tract infection) (Acute) Sepsis (Acute) Acute UTI (Acute) Bandemia (Acute) Prostatic hypertrophy (Chronic) Mass of urinary bladder determined by ultrasound (Acute) Urinary retention with incomplete bladder emptying (Acute) Urinary retention due to benign prostatic hyperplasia (Acute) BPH (benign prostatic hyperplasia) (Chronic) Essential hypertension (Acute) Rectal/anal hemorrhage (Acute) Skin lesion (Acute) Gastric polyp (Acute) Normal colonoscopy (Acute) Mass of left upper extremity ([facility] 2inch diameter fungating bleeding mass upper left extremity. Bacteremia (Acute) Post surgical complication (Acute) Unilateral inguinal hernia without obstruction or gangrene (Acute) Basal cell carcinoma of upper extremity (Acute) Medical History DVT (deep venous thrombosis) Elevated PSA Hyperlipidemia Hypertension Osteoarthritis, hip, bilateral Problem related to housing and economic circumstances Seborrheic dermatitis Septic arthritis Urinary retention Surgical History History of colonoscopy (~09/2021) History of esophagogastroduodenoscopy (EGD) (~09/2021) Unilateral inguinal hernia with mesh per pt. Right side per patient Social History Smoking/Tobacco Use Status: Never Smoking risk assessment performed?: Yes Alcohol Intake: current Alcohol Intake frequency: holidays/special occasions only Alcohol type: wine Drug use: Never Substance use type: does not use Current gender identity: male Do you feel safe at home: Yes Do you feel safe in your relationship?: Yes Additional Social history: lives alone Exam Const General: no acute distress Orientation: alert HENMT Head: normal to inspection Ears: external ears normal General nose exam: external nose normal Mouth: moist mucous membranes Eyes General: appearance normal, both eyes and all related structures Neck Neck: normal visual inspection Resp Effort & Inspection: normal respiratory effort and able to speak in complete sentences Cardio Rate: regular rate GI Palpation: soft and nontender Skin General skin exam: no rashes or lesions noted Neuro General: patient alert and patient oriented x3 Extrem General: normal to inspection Psych Mental Status: mental status grossly normal Course Vital Signs Vital signs: Vital Signs Temperature 37.2 C 10/19/22 17:30 Pulse 86 10/19/22 17:30 Respiratory Rate 18 10/19/22 17:30 Blood Pressure 139/67 10/19/22 17:30 Pulse Oximetry 98 10/19/22 17:30 Temperature 37.2 C 10/19/22 17:30 Temperature Source Oral 10/19/22 17:30 Pulse 86 10/19/22 17:30 Respiratory Rate 18 10/19/22 17:30 Blood Pressure 139/67 10/19/22 17:30 Blood Pressure Position Sitting 10/19/22 17:30 Pulse Oximetry 98 10/19/22 17:30 Oxygen Delivery Method Room Air 10/19/22 17:30 Oxygen Flow Rate 0 10/19/22 17:30 Pain Level 0 10/19/22 17:30
--- NOTE | 2022-10-19 19:02 | NUR.NOTE ---
Nursing Note: Pt highly anxious about care. Drainage bag attached without incident and urine draining appropriately.
[2022-10-19 19:26] LABS: Bilirubin Large (Negative); Blood Large (Negative); Clarity Turbid (Clear); Glucose 100 mg/dL (Negative); Ketones 40 mg/dL (Negative); Leukocyte Esterase Large (Negative); Nitrite Negative (Negative); pH 8.5 (5-8)
[2022-10-19 19:30] LABS: C & S Indicated? Yes; RBC >50 HPF (0-2)
[2022-10-19] MEDS: MacroBID 100 MG CAP PO (20:14)
[2022-10-19 20:29] VITALS: BP 133/64; PULSE 64; RESP 18; TEMP 37; O2SAT 99
--- NOTE | 2022-10-22 08:31 | NUR.NOTE ---
Nursing Note:in chart for antibiotics
== END 2022-10-19 20:29 | disposition home or self-care (01) ==
PROVIDERS: Emergency Provider Emergency Medicine; PCP Internal Medicine
DX: R31.9 Hematuria, unspecified (principal); N40.1 Benign prostatic hyperplasia with lower urinary tract symptoms; R33.8 Other retention of urine; Z96.0 Presence of urogenital implants
CPT/HCPCS: 87077; 99283; 81003; 81015; 87086; 87186

== ENCOUNTER 2024-06-21 15:06 | Outpatient (REF) | payer SELFPAY | END 2024-06-21 15:07 | disposition home or self-care (01) | LOC: LBN 15:06 | PROVIDERS: PCP Internal Medicine; Visit Provider Urology | DX: R33.9 Retention of urine, unspecified (principal); Z87.898 Personal history of other specified conditions; N13.30 Unspecified hydronephrosis | CPT/HCPCS: 87077; 87086; 87186 ==

== ENCOUNTER 2024-06-27 13:26 | Inpatient (IN) | payer OTHER, SELFPAY ==
[2024-06-27] VITALS (45 sets, daily range): BP systolic 103–154; BP diastolic 46–79; PULSE 63–92; RESP 10–20; TEMP 36.8–37; O2SAT 94–98
--- NOTE | 2024-06-27 15:07 | ED.GENADUL_ITS ---
Discharge Plan Discharge Details Chief Complaint: GenMedical Clinical Impression: Tinea cruris, Acute UTI, Hallucinations Primary Care Provider: ALEX DÍAZ ED Provider: Rajesh Caputo Home Meds and New Rx's Prescriptions: No Action nitrofurantoin monohyd/m-cryst [Macrobid] 100 mg capsule 100 mg PO Q12H 7 Days Qty: 14 0RF Rx Instructions: must administer with a meal/food HPI General Date/Time Provider Initiated Documentation: 06/27/24 13:50 . HPI Narrative: MDM This is a chronically ill normothermic and nontachycardic 78-year-old male with visual hallucinations E. coli UTI for which he will require hospitalization and ceftriaxone. Patient has reassuring vital signs hopwever given UTI will order blood cultures lactate. No flank pain to suggest ureterolithiasis. No head strike not altered to suggest intracranial hemorrhage I did not obtain a CT head. No cough to suggest pneumonia so I did not obtain a chest x-ray. Soft nontender abdomen and patient denies abdominal pain so I did not feel he required a CT scan of his abdomen. Given his E. coli bacteriuria from last week we will order blood cultures and lactate and cover empirically with ceftriaxone given sensitivities. His lower extremities have marked significant, chronic appearing edema. He is not short of breath to suggest acute heart failure. He has warm well-perfused feet so I am no concerned for critical limb ischemia so I do not feel the patient requires CT angiogram with runoffs. Given his UTI and difficulty ambulating secondary to his significant lower extremity edema he will require hospitalization. No crepitance to suggest Tejas's gangrene. 5 PM I signed patient out to Dr. Guerra. CBC returned showing normocytic anemia improved compared to prior. No leukocytosis. No thrombocytopenia. Patient's current vital signs are heart rate of 73 blood pressure of 148/68. HPI This is a 78-year-old male with chronic indwelling suprapubic catheter and recurrent UTIs right emergency department with [facility] in setting of visual hallucinations. Patient is called [employer] police numbers times this is reportedly seen children in his room for the past 4 days. He denies any falls fevers. He has not yet been able to get seen for his chronic lower extremity edema. He denies abdominal pain history of ureterolithiasis. He denies nausea vomiting fevers chills dysuria and frequency. He has not been able to eat much at home as he has had difficulty getting out of the home. He denies routine tobacco, ethanol, and illicits. In the absence of suicidal homicidal ideation we will defer acetaminophen and salicylate and ethanol levels Exam General: Well-appearing in no acute distress speaking in complete sentences. Head: Normocephalic, atraumatic. Eye: Extraocular eye movements intact. No conjunctival injection. No scleral icterus. Ear, nose, mouth, throat: Grossly normal inspection. Normal voice, handling secretions normally. Neck: Trachea midline. Cardiovascular: Well-perfused distal extremities. Respiratory: Nonlabored respiration. Gastrointestinal: Nondistended abdomen. Musculoskeletal: Bilateral lower extremity 1+ edema. Warm well-perfused feet with palpable PT pulses. Diffuse excoriated convalescent plaques bilateral lower extremities with mild erythema as shown the following follow: Skin: In the right inguinal crease there is erythema with some satellite lesions. Bilateral lower extremities as noted above with chronic lichenification. Neurologic: Alert and appropriate, no apparent acute deficits. GCS 15. Psychiatric: Visual hallucinations. Denies homicidal and suicidal ideation. No flight of ideas. No pressured speech. Related Data Home Medications ?Medication ?Instructions ?Recorded ?Confirmed nitrofurantoin 100 mg PO Q12H 7 days #14 caps 06/24/24 06/24/24 monohydrate/macrocrystals 100 mg capsule (Macrobid) Previous Rx's ?Medication ?Instructions ?Recorded nitrofurantoin 100 mg PO Q12H 7 days #14 caps 06/24/24 monohydrate/macrocrystals 100 mg capsule (Macrobid) Allergies Allergy/AdvReac Type Severity Reaction Status Date / Time amlodipine Allergy Unknown UNKNOWN Verified 05/29/22 07:38 sulfamethoxazole (From Allergy Unknown UNKNOWN Verified 05/29/22 07:38 Sulfamethoxazole-Trimethoprim) trimethoprim (From Allergy Unknown Verified 05/29/22 07:38 Sulfamethoxazole-Trimethoprim) General Stated Complaint: GenMedical MISSY: 3 Course Vital Signs Vital signs: Vital Signs Temperature 36.8 C 06/27/24 14:00 Pulse 73 06/27/24 14:00 Respiratory Rate 14 06/27/24 14:00 Blood Pressure 142/74 H 06/27/24 14:00 Pulse Oximetry 98 06/27/24 14:00 Temperature 36.8 C 06/27/24 14:00 Temperature Source Oral 06/27/24 14:00 Pulse 73 06/27/24 14:00 Respiratory Rate 14 06/27/24 14:00 Blood Pressure 142/74 H 06/27/24 14:00 Blood Pressure Position Sitting 06/27/24 14:00 Pulse Oximetry 98 06/27/24 14:00 Oxygen Delivery Method Room Air 06/27/24 14:00 Oxygen Flow Rate 0 06/27/24 14:00 Medical Decision Making Quality:SDOH Health Related Social Needs: 2 No Data to Display PFSH All Active Problems (Updated 06/27/24 @ 16:09 by Rajesh Caputo MD) Hallucinations (Acute) Acute UTI (Acute) Tinea cruris (Acute) Bacteremia, escherichia coli (Acute) Bilateral lower extremity edema (Acute) Complicated UTI (urinary tract infection) (Acute) Sepsis (Acute) Acute UTI (Acute) Bandemia (Acute) Prostatic hypertrophy (Chronic) Mass of urinary bladder determined by ultrasound (Acute) Urinary retention with incomplete bladder emptying (Acute) Urinary retention due to benign prostatic hyperplasia (Acute) BPH (benign prostatic hyperplasia) (Chronic) Essential hypertension (Acute) Rectal/anal hemorrhage (Acute) Skin lesion (Acute) Gastric polyp (Acute) Normal colonoscopy (Acute) Mass of left upper extremity (Acute) [facility] 2inch diameter fungating bleeding mass upper left extremity. Bacteremia (Acute) Post surgical complication (Acute) Unilateral inguinal hernia without obstruction or gangrene (Acute) Basal cell carcinoma of upper extremity (Acute) Medical History DVT (deep venous thrombosis) Elevated PSA Hyperlipidemia Hypertension Osteoarthritis, hip, bilateral Problem related to housing and economic circumstances Seborrheic dermatitis Septic arthritis Urinary retention Surgical History History of colonoscopy (~09/2021) History of esophagogastroduodenoscopy (EGD) (~09/2021) Unilateral inguinal hernia with mesh per pt. Right side per patient Social History Smoking/Tobacco Use Status: Never Smoking risk assessment performed?: Yes Alcohol Intake: current Alcohol Intake frequency: holidays/special occasions only Alcohol type: wine Drug use: Never Substance use type: does not use Current gender identity: male Do you feel safe at home: Yes Do you feel safe in your relationship?: Yes Additional Social history: lives alone
[2024-06-27 16:50] LABS: Abs Immature Grans 0.02 10^3/uL (0.0-0.06); Absolute Basophil Count 0.05 10^3/uL (0.0-0.2); Absolute Eosinophil Count 0.41 10^3/uL (0.0-0.7); Absolute Lymphocyte Count 1.36 10^3/uL (1.2-3.4); Absolute Monocyte Count 0.69 10^3/uL (0.1-0.8); Absolute Neutrophil Count 4.09 10^3/uL (1.2-6.7); Basophils % 0.8 %; Eosinophils % 6.2 %; HCT 31.6 % (40.0-50.0); HGB 10.3 g/dL (13.5-17.5); Immature Grans % 0.3 %; Lymphocytes % 20.5 %; MCH 28.9 pg (27.0-33.0); MCHC 32.6 % (32.0-36.0); MCV 89 fL (80-95); MPV 10.2 fL (8.0-11.0); Monocytes % 10.4 %; Neutrophils % 61.8 %; Platelet Count 278 10^3/uL (130-400); RBC 3.56 10^6/uL (4.36-5.78); RDW 17.7 % (11.8-14.1); RDW-SD 57.6 fL; WBC 6.62 10^3/uL (4.4-10.8)
[2024-06-27] MEDS: Normal Saline 500 ML 1000 ML IV (16:52)
[2024-06-27] MEDS: cefTRIAXone 2 GM/50 ML BAG IVPB (17:06)
[2024-06-27 17:08] LABS: Bilirubin Negative (Negative); Blood Moderate (Negative); Clarity Clear (Clear); Glucose Negative (Negative); Ketones 15 mg/dL (Negative); Leukocyte Esterase Small (Negative); Nitrite Positive (Negative); Urobilinogen 0.2 mg/dL (Up to 0.2)
[2024-06-27 17:16] LABS: Bacteria Few HPF (Negative); C & S Indicated? No/Sq. Contamination; Casts Negative LPF (Negative); Crystals Negative HPF (Negative); Epithelial Cells Moderate HPF (Negative); Mucus Negative (Negative)
[2024-06-27 17:32] LABS: Anion Gap 10.7 mmol/L (3-11); BUN 31 mg/dL (7-18); CO2 28.3 mmol/L (21.0-32.0); CREATININE 1.1 mg/dL (0.70-1.30); Calcium 10.1 mg/dL (8.5-10.1); Chloride 102 mmol/L (98-107); Estimated GFR 69.14 (mL/min/1.73m2); Glucose 100 mg/dL (74-106); Potassium 3.9 mmol/L (3.5-5.1); Sodium 141 mmol/L (136-145)
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
--- NOTE | 2024-06-27 19:23 | W.EDPROG ---
Date of service: 06/27/24 Time of Service: 19:23 Medical Decision Making Patient's labs show no significant abnormalities other than the UTI. Given the change in mental status discussed with hospitalist and plan for admission. Quality:SDOH Health Related Social Needs: No Data to Display Discharge Plan Disposition Patient Disposition: Admit to [facility] Condition: Stable Discharge Details Chief Complaint: GenMedical Clinical Impression: Tinea cruris, Acute UTI, Hallucinations Primary Care Provider: ALEX DÍAZ ED Provider: Trip Guerra [place] Meds and New Rx's Prescriptions: No Action nitrofurantoin monohyd/m-cryst [Macrobid] 100 mg capsule 100 mg PO Q12H 7 Days Qty: 14 0RF Rx Instructions: must administer with a meal/food
--- NOTE | 2024-06-27 21:42 | W.PC.ACHO ---
Registration Status: Primary Language: Preferred Language: ED Information & Data Chief Complaint GenMedical 06/27/24 15:08 Triage Note Pt here w/known uti, rx'ed 06/27/24 14:00 an abx, but is not taking it . Has called [facility] numerous times in regards to seeing children/ beings in his home since . States he is a very spiritual individual and can read energies and see things others can not see. Sees Bimal and [facility]. Medical / Surgical History (Last Reviewed 06/27/24 @ 20:14 by Tee Gabriel) Hypertension DVT (deep venous thrombosis) Septic arthritis Seborrheic dermatitis Urinary retention Problem related to housing and economic circumstances Hyperlipidemia Elevated PSA Osteoarthritis, hip, bilateral (Last Reviewed 06/27/24 @ 20:14 by Tee Gabriel) History of esophagogastroduodenoscopy (EGD) (~09/2021) History of colonoscopy (~09/2021) Unilateral inguinal hernia Most Recent Vital Signs Temperature 36.9 C 06/27/24 15:40 Temperature Source Oral 06/27/24 15:40 Pulse 75 06/27/24 20:01 Pulse 92 H 06/27/24 19:30 Respiratory Rate 16 06/27/24 19:30 Respiratory Effort Normal 06/27/24 13:59 Respiratory Depth Normal 06/27/24 13:59 Respiratory Pattern Normal 06/27/24 13:59 Blood Pressure 121/50 L 06/27/24 20:01 Blood Pressure Mean 74 06/27/24 20:01 Blood Pressure Position Sitting 06/27/24 15:40 Pulse Oximetry 97 06/27/24 19:40 Oxygen Delivery Method Room Air 06/27/24 15:40 Oxygen Flow Rate 0 06/27/24 14:00 Pain Level 0 06/27/24 15:40 Allergies amlodipine Allergy (Unknown, Verified 05/29/22 07:38) UNKNOWN sulfamethoxazole (From Sulfamethoxazole-Trimethoprim) Allergy (Unknown, Verified 05/29/22 07:38) UNKNOWN trimethoprim (From Sulfamethoxazole-Trimethoprim) Allergy (Unknown, Verified 05/29/22 07:38) IV IV Catheter Type [Left Upper Saline Lock arm] IV Catheter Gauge [Left Upper 18 arm] Diagnostics 06/27/24 06/27/24 06/27/24 Range/Units 20:29 17:00 16:45 WBC 6.62 (4.4-10.8) 10^3/uL RBC 3.56 L (4.36-5.78) 10^6/uL Hgb 10.3 L (13.5-17.5) g/dL Hct 31.6 L (40.0-50.0) % MCV 89 (80-95) fL MCH 28.9 (27.0-33.0) pg MCHC 32.6 (32.0-36.0) % RDW 17.7 H (11.8-14.1) % Plt Count 278 (130-400) 10^3/uL MPV 10.2 (8.0-11.0) fL Immature Gran % 0.3 % Neutrophils % 61.8 % Lymphocytes % 20.5 % Monocytes % 10.4 % Eosinophils % 6.2 % Basophils % 0.8 % Nucleated RBC % 0.0 (0.0-0.3) % Absolute Neutrophils 4.09 (1.2-6.7) 10^3/uL Absolute Lymphocytes 1.36 (1.2-3.4) 10^3/uL Absolute Monocytes 0.69 (0.1-0.8) 10^3/uL Absolute Eosinophils 0.41 (0.0-0.7) 10^3/uL Absolute Basophils 0.05 (0.0-0.2) 10^3/uL Sodium 141 (136-145) mmol/L Potassium 3.9 (3.5-5.1) mmol/L Chloride 102 (98-107) mmol/L Carbon Dioxide 28.3 (21.0-32.0) mmol/L Anion Gap 10.7 (3-11) mmol/L BUN 31 H (7-18) mg/dL Creatinine 1.1 (0.70-1.30) mg/dL Est GFR (CKD-EPI 2020) 69.14 (mL/min/1.73m2) Glucose 100 (74-106) mg/dL Calcium 10.1 (8.5-10.1) mg/dL Urine Color Yellow (Yellow) Urine Clarity Clear (Clear) Urine pH 6.0 (5-8) Ur Specific [place] 1.020 (1.005-1.025) Urine Protein >=300 H (Neg-Trace) mg/dL Urine Ketones 15 H (Negative) mg/dL Urine Blood Moderate H (Negative) Urine Nitrite Positive H (Negative) Urine Bilirubin Negative (Negative) Urine Urobilinogen 0.2 (Up to 0.2) mg/dL Ur Leukocyte Esterase Small H (Negative) Urine RBC 10-20 H (0-2) HPF Urine WBC 10-20 H (0-5) HPF Ur Epithelial Cells Moderate (Negative) HPF Urine Crystals Negative (Negative) HPF Urine Bacteria Few (Negative) HPF Urine Casts Negative (Negative) LPF Urine Mucus Negative (Negative) Ur Culture Indicated? No/Sq. Contamination Urine Glucose Negative (Negative) mg/dL COVID-19 Source Pending SARS-CoV-2 (PCR) Pending Influenza Type A (PCR) Pending Influenza Type B (PCR) Pending RSV (PCR) Pending 06/27/24 17:00 Urine Culture - Pending Urine - Subrapubic 06/27/24 17:00 Blood Culture - Pending Blood 06/27/24 16:45 Blood Culture - Pending Blood Intake and Output - 24 Hour Total 06/27/24 13:26 thru 06/27/24 19:37 Output Total 500 Balance -500 Weight 79.379 kg Output: Urine 500 Falls Risk Assessment Contributing Factors Unstable,Impairments 06/27/24 13:59 Ambulatory Aids Uses ambulatory device 06/27/24 13:59 Tubes/Lines W/no contributing factors 06/27/24 13:59 Gait Evaluation W/no contributing factors 06/27/24 13:59 Cognition Cognitive impairment 06/27/24 13:59 Fall Total Score 56 06/27/24 13:59 Level of Risk High Risk 06/27/24 13:59 Problems (Last Reviewed 06/27/24 @ 20:14 by Tee Gabriel) Delusions (Acute) Hallucinations (Acute) Acute UTI (Acute) Tinea cruris (Acute) Complicated UTI (urinary tract infection) (Acute) BPH (benign prostatic hyperplasia) (Chronic) v v v v v v v v v Sending and/or Receiving Nurses: Please use comment section below to note any information pertinent to the patient hand-off not included above. Information / Comments: Report received from: called for report at [id number], pt to be transferred to [facility] on med surg upon arrival. received report from Pat. Patient A/O to person and place. IV is in the STEPH[facility]. pt has a suprapubic cath that is chronic and hasn't had it changed since Jan. Patient is having hallucinations of of in his home and in his car, they took his keys. patient was called [facility] to report his halluincations today and after several calls they went to patients home and transported him to the hospital. patient does express that he wants to leave the hospital and go home. Patient was very dishelvd and unclean on arrival. rash in [place] and stage 1 on his buttocks, covid/flu,rsv still pending. [facility]. ua + nitrates. RN in er to change out his catheter before bringing patient to the floor. Patient ambulates with rolling walker
[2024-06-27 22:21] LABS: COVID-19 PCR Negative (Negative); Influenza A PCR Negative (Negative); Influenza B PCR Negative (Negative); RSV PCR Negative (Negative)
--- NOTE | 2024-06-27 22:24 | NUR.NOTE ---
This nurse informed patient that the provider ordered for catheter to be changed. patient admantly refused for this to be done. state only the urologist has the right to change his catheter because he has over 25 years of relationship with the urology office and only wants them to change his catheter
[2024-06-27 22:28] LABS: Source Nasopharynx
[2024-06-28 03:02] VITALS: PULSE 85; RESP 19; TEMP 36.9; O2SAT 96
--- NOTE | 2024-06-28 05:19 | NUR.NOTE ---
paged hospitalist, patient is requesting to leave. he has reported he is not comfortable nursing has been in the room multiple times to assist patient and their no reasoning with the patient. nothing we offer or do is acceptable to his. called md to come to come to the bedside. nursing Note:
--- NOTE | 2024-06-28 07:13 | NUR.NOTE ---
staage 1 noted in gluteal fold. Nursing Note:
[2024-06-28] MEDS: Enoxaparin 40 MG/0.4 ML SYR SC (07:32)
[2024-06-28] MEDS: Normal Saline Flush 10 ML SYR IVP ×2 (07:33→20:09)
[2024-06-28 07:51] VITALS: BP 113/61; PULSE 74; RESP 12; TEMP 36.8; O2SAT 97
--- NOTE | 2024-06-28 11:01 | PHACLINREV_ITS ---
Pharmacy Admission Review Admission Clinical Review Admission Pharmacy Review: Delusions (Acute) Hallucinations (Acute) Acute UTI (Acute) Tinea cruris (Acute) Complicated UTI (urinary tract infection) (Acute) amlodipine Allergy (Unknown, Verified 05/29/22 07:38) UNKNOWN sulfamethoxazole (From Sulfamethoxazole-Trimethoprim) Allergy (Unknown, Verified 05/29/22 07:38) UNKNOWN trimethoprim (From Sulfamethoxazole-Trimethoprim) Allergy (Unknown, Verified 05/29/22 07:38) Resuscitation Status Full Code Height 5 ft 9 in Weight 82.463 kg Comments Comments/Follow Ups: [facility] to [facility] per morning meeting Pharmacy Admission Review Renal Dosing Renal Dosing: BUN 31 mg/dL (7-18) H 06/27/24 16:45 Creatinine 1.1 mg/dL (0.70-1.30) 06/27/24 16:45 Medications needing adjustments: Reviewed (CrCl 65.6 mL/min) List of meds needing interventions: Current medications are okay Anticoagulation Anticoagulation: Hgb 10.3 g/dL (13.5-17.5) L 06/27/24 16:45 Hct 31.6 % (40.0-50.0) L 06/27/24 16:45 Plt Count 278 10^3/uL (130-400) 06/27/24 16:45 Creatinine 1.1 mg/dL (0.70-1.30) 06/27/24 16:45 DVT Prophylaxis: Reviewed Medications: Enoxaparin (40mg daily) Relevant Labs Relevant Labs: Sodium 141 mmol/L (136-145) 06/27/24 16:45 Potassium 3.9 mmol/L (3.5-5.1) 06/27/24 16:45 Chloride 102 mmol/L (98-107) 06/27/24 16:45 Electrolytes, C-Reactive P, ESR: Reviewed (labs pending) Cardiac Review BP, HR, EF%: Reviewed (BP and HR WNL) QTc Review QTc: Reviewed (No EKG on file) IV to PO Switch IV Medications: Reviewed (ceftriaxone) Home Meds Home Med List reviewed: Reviewed Relevent Home Meds Not ordered & why?: Macrobid (on ceftriaxone for UTI) Current Meds Current Medication Order Review: Reviewed Pharmacy Antibiotic Review Relevant Labs: WBC 6.62 10^3/uL (4.4-10.8) 06/27/24 16:45 Temperature 36.8 C Temperature 36.9 C Temperature 37.0 C Pharmacy Antibiotic Activity: C/S review and Reviewed, no change Comments: Patient is on ceftriaxone, day 1, for UTI. Per provider suspects patient is chronic colonizer. Blood and urine cultures pending. Comments Comments/Follow Ups: [facility] per morning meeting
[2024-06-28 11:03] VITALS: BP 108/59; PULSE 67; RESP 16; TEMP 36.9; O2SAT 96
--- NOTE | 2024-06-28 11:45 | NUR.NOTE ---
Nursing Note: Commodity Merchant spoke with Brother in Law Cory regarding update on patient. Cory states that patient has had hallucinations going on for the past 2-3 months, at first they started one to two times a week, however the last couple of weeks has increased to daily. Cory states that he is concerned about patient living at home, but has refused to sell home and move to terminal press operator care facility.
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
--- NOTE | 2024-06-28 12:35 | PDOC.CMIN ---
Date of service: 06/28/24 Time of Service: 12:45 Care Management Initial Assmt Initial Assessment Reason for Hospitalization: Delusions, complicated UTI with chronic suprapubic Functional Status/Living Situation Patient Presentation: Thong is a 78-year-old gentleman who, per report, presents with delusions, stating he thinks that he is seeing extraterrestrial beings in his home or vehicle. Per [facility], he has been calling 911 for the last 5 days consistency to report these beings. This morning, he called [facility] to report that he was feeling scared, and requesting to talk to the embedded [employer]), that brought him in. They were able to come visit with him this morning. Per RN, his brother in law states that these hallucinations are not new, and he has had them for some time. However, they are now happening more frequently (multiple times daily vs. weekly). Thong is [facility], and per [facility], has support from a man named 'David', who comes in 3x weekly. He lives alone in his home, and his sister (Aleah) and [id number] (Cory) are significant supports for him. Thong verbally stated multiple times that he was going to leave today, but after conversing with staff, he decided to stay. A psychiatric consult was ordered. Thong was sitting up in bed when CM met with him; he was talking with Varsha [facility], and was happy to have the company. He discussed his spiritism, and the support he has in the community, including David and his professor in family studies. CM will continue to follow. Town of Residence: [place] Resides with: Alone Significant Other/Family: Local (Sister Aleah, has 2 children that he is not close with ) Caregiver/Guardian: CO composing machine operator Aleah Lugo out of the [place] office. Natural Supports: Sister (Aleah Watkins), and [id number] (Cory) Instrumental Activities of Daily Living (ADLs): Independent Medications Medication Management: No Issues/Barriers identified Physical Functioning/Mobility Assistive Device: Rollade Advance Directives Advance Directives: Do you have an Advance Directive: Y 01/17/15 20:32 AD On File at [facility]: N 03/21/13 12:24 Date Asked 06/27/24 06/27/24 14:22 AD Date Reviewed COLST On File at [facility] COLST Date Scanned Code Status Resuscitation Status Full Code Insurance Coverage/Financial Issues Insurance: [facility] Care Team Visit Care Team Role Provider Type Doroteo Sanchez MD MD [facility] STAFF PHYSICIAN ALEX DÍAZ Primary Care Provider NON-[facility] STAFF PHYSICIAN Mis Francis Other Providers SCALING MACHINE OPERATOR Keshia Galicia Other Providers SCALING MACHINE OPERATOR Fidelina Hernandez Other Providers SCALING MACHINE OPERATOR Latonya Tapia Other Providers OTHER Kimberley Mercado RN Other Providers SCALING MACHINE OPERATOR Valentina Rodriguez Other Providers SCALING MACHINE OPERATOR Trip Guerra MD Emergency Provider [facility] STAFF PHYSICIAN Tee Gabriel Admit Provider NON-[facility] STAFF PHYSICIAN Attending Provider Discharge Potential Discharge Needs: Consult (Psych), PCP F/U Appt and Other (Neurology ) Anticipated Barriers to Discharge: None Identified Patient/Family Education Needs: Review discharge instructions, discuss Ask Me Three Transportation: [facility] Transportation: Private vechicle (As coordinated by CM ) Plan: Anticipate Thong is discharged home with new [facility] RN/PT/SCOUT EXECUTIVE services. He will likely be transported via [facility] private vehicle. Thong will follow up with his PCP, neurologist, and discharge plan of care. CM sent a referral to [facility] and a telepsych is pending. Follow-up with Dr Wallis to be scheduled in 07/26/24. Social Determinants of Health Screening Social Determinants of Health last assessed: 06/28/24 Will the Patient Participate in the Screening?: Yes Do you worry about having a steady place to live?: yes What is your living situation today?: I have housing today, but am worried about losing it Problems where you live: no known problems In the past 12 months, have you had to go without electric, gas, oil or water in your home?: yes Have you or anyone in your house had to go without enough food to eat?: yes 1. Within the past 12 months, we worried whether our food would run out before we got money to buy more.: Often true 2. Within the past 12 months, the food we bought just didn't last and we didn't have money to get more.: Often true Referred to:: Other: Has lack of transportation kept you from medical appointments or from doing things needed for daily living?: yes Has anyone in your life made you feel unsafe or unsupported?: yes How hard is it for you to pay for the very basics like food, housing, medical care, and heating? Would you say it is:: Somewhat hard Do you want help finding or keeping work or a job?: I do not need or want help If for any reason you need help with day-to-day activities such as bathing, preparing meals, shopping, managing finances, etc., do you get the help you need?: I need a lot more help How often do you feel lonely or isolated from those around you?: Rarely Do you speak a language other than Belarusian at home?: No Does the patient want assistance with any of the above?: Yes Health Related Social Needs Health related social needs: housing instability, housed, with risk of homelessness (Z59.811), food insecurity (Z59.41), transportation insecurity (Z59.82), material hardship(utilities) (Z59.12), problems related to housing/economic circumstances (Z59.89), problems with daily activities (Z73.9) and feeling lonely/isolated (Z60.8) PFSH All Active Problems (Updated 06/28/24 @ 01:58 by Tee Gabriel) Edema of both lower legs due to peripheral venous insufficiency (Chronic) Delusions (Acute) Hallucinations (Acute) Acute UTI (Acute) Tinea cruris (Acute) Bacteremia, escherichia coli (Acute) Bilateral lower extremity edema (Acute) Complicated UTI (urinary tract infection) (Acute) Sepsis (Acute) Acute UTI (Acute) Bandemia (Acute) Prostatic hypertrophy (Chronic) Mass of urinary bladder determined by ultrasound (Acute) Urinary retention with incomplete bladder emptying (Acute) Urinary retention due to benign prostatic hyperplasia (Acute) BPH (benign prostatic hyperplasia) (Chronic) Essential hypertension (Acute) Rectal/anal hemorrhage (Acute) Skin lesion (Acute) Gastric polyp (Acute) Normal colonoscopy (Acute) Mass of left upper extremity (Acute) per [facility] referral 2inch diameter fungating bleeding mass upper left extremity. Bacteremia (Acute) Post surgical complication (Acute) Unilateral inguinal hernia without obstruction or gangrene (Acute) Basal cell carcinoma of upper extremity (Acute) Medical History Hypertension DVT (deep venous thrombosis) Septic arthritis Seborrheic dermatitis Urinary retention Problem related to housing and economic circumstances Hyperlipidemia Elevated PSA Osteoarthritis, hip, bilateral Surgical History History of esophagogastroduodenoscopy (EGD) (~09/2021) History of colonoscopy (~09/2021) Unilateral inguinal hernia with mesh per pt. Right side per patient Social History Smoking/Tobacco Use Status: Never Smoking risk assessment performed?: Yes Alcohol Intake: current Alcohol Intake frequency: holidays/special occasions only Alcohol type: wine Drug use: Never Substance use type: does not use Housing: house Current gender identity: male Do you feel safe at home: Yes Do you feel safe in your relationship?: Yes Additional Social history: lives alone Readmission Within the Past 30 Days Yes or No: No Anticipated HH Services Anticipated HH Services at Discharge [facility].
--- NOTE | 2024-06-28 12:52 | W.NUTRFU ---
Date of service: 06/28/24 Time of Service: 12:52 Nutrition Note NOTE: Thong is a 78yo male being treated for a complicated UTI with delusions/halucinations. Hx of urinary retention and BPH. Edema to bilat Lower extremetiies. Edema most likely responsible for wt gain trend but low albumin and total protein labs concerning regarding nutrition status. Still start offering oral nutrition supplements for additional protein and monitor po intake as he has been admitted for <24 hours at this time. will continue to monitor Time Spent in Nutritional Counseling and Treatment: 5 minutes
--- NOTE | 2024-06-28 14:58 | PT.INIE ---
PT Notes Visit Reasons: Delusions, Complicated UTI with chronic suprapubic Physical Therapy Inpatient Initial Evaluation Date: 06/28/2024 Referring Doctor: Dr Sanchez PT Orders: PT CONSULT: PT evaluation Precautions: IV access, delusions, standard, fall risk Patient Profile/Admitting Diagnosis: Pt is 78yo male presented to ED via [place] state police with delusions, hallucinations and BLE edema. In ED pt with urinary retention despite suprapubic catheter. Pt received dose of Antibiotic and admitted to med surg unit for medical management/monitoring. Pt had catheter changed by Dr Wallis on 06/28/2024. PMHX: Edema of both lower legs due to peripheral venous insufficiency (Chronic) Delusions (Acute) Hallucinations (Acute) Acute UTI (Acute) Tinea cruris (Acute) Bacteremia, escherichia coli (Acute) Bilateral lower extremity edema (Acute) Complicated UTI (urinary tract infection) (Acute) Sepsis (Acute) Acute UTI (Acute) Bandemia (Acute) Prostatic hypertrophy (Chronic) Mass of urinary bladder determined by ultrasound (Acute) Urinary retention with incomplete bladder emptying (Acute) Urinary retention due to benign prostatic hyperplasia (Acute) BPH (benign prostatic hyperplasia) (Chronic) Essential hypertension (Acute) Rectal/anal hemorrhage (Acute) Skin lesion (Acute) Gastric polyp (Acute) Normal colonoscopy (Acute) Mass of left upper extremity (Acute) [facility] 2inch diameter fungating bleeding mass upper left extremity.Bacteremia (Acute) Post surgical complication (Acute) Unilateral inguinal hernia without obstruction or gangrene (Acute) Basal cell carcinoma of upper extremity (Acute) Medical History Hypertension DVT (deep venous thrombosis) Septic arthritis Seborrheic dermatitis Urinary retention Problem related to housing and economic circumstances Hyperlipidemia Elevated PSA Osteoarthritis, hip, bilateral Surgical History History of esophagogastroduodenoscopy (EGD) (~09/2021) History of colonoscopy (~09/2021) Unilateral inguinal hernia with mesh per pt. Right side per patient Social History/Home Situation: resides alone in 2 story home with 1 step to enter. Pt stays on first floor. He has family that assists with shopping. He does not leave his home often. Equipment Owned/DME: 2 rollators/4WW Subjective: Pt reports he has to get out of here he has important things to take care of and needs to see Dr Wallis. Pt very tangential talking about needing his catheter changed then describing the beings in his home that lead him to call the state police. Objective: [] General Observation: well appearing male seated at edge of bed , erythema to BLE with signifcant edema. Mental Status: alert, oriented x4. delusional but no hallucinations at this time Pain: denies ROM: [] Right Upper Extremity: WFL Left Upper Extremity: WFL Right Lower Extremity: WFL except ankle to neutral hip abduction to 10 degrees impaired hip flexion to 90 Left Lower Extremity: WFL except ankle to neutral Strength: [] Right Upper Extremity: grossly >/=to 3/5 ( pt did not follow instructions for MMT d/t delusions tangential difficulty attending to task) Left Upper Extremity: grossly >/= to 3/5 Right Lower Extremity: hip 3-/5 knee 3/5 ankle 3/5 Left Lower Extremity: hip 3-/5 knee 3/5 ankle 3/5 Sensation: intact Bed Mobility/Transfers: [] Supine to sit independent Sit to stand SBA pt braces BLE against surfaces to stand and pulls up on 4WW Stand to sit SBA poor hand placement , despite instruction to reach back Bed to chair CGA with 4WW poor safety does not lock brakes prior to sitting . poor hand placement Gait: amb 50 feet with 4WW CGA wide SEAN, decreased step height for foot clearance, impaired step length. forward flexed trunk , excessive reliance on BUE for stability with 4WW, adduction BLE Balance: [] Static Sitting: good. LOB posteriorly without UE support Dynamic Sitting: good Static Standing: good with BUE support Dynamic Standing:Fair with BUE support Special Tests: [] Mobility Limitations Standardized Measure [] [facility] AM-PAC 6 clicks Basic Mobility Inpatient Short Form: [] Raw Score: 20 CMS Score: 35.83% Informed Consent/Education: Patient instructed in purpose of PT consult. Assessment: Pt is a 78 yo male presenting with altered mental status / delusions, tangential thought process, difficulty at times expressing self. Pt demonstrates poor safety awareness , poor judgment. and decreased insight into deficits. Pt would benefit from skilled PT to maximize his strength, balance and functional mobility . Patient presents with clinical signs and symptoms consistent with current/admitting diagnoses that have resulted to mobility limitations, gait instability, generalized weakness, and impairment of motor control as demonstrated by the following impairment level findings: 1. Decreased strength to BLE major muscle groups 2. Impaired standing/sitting balance 3. Limitation of joint range of motion in right hip 4. impaired functional activity tolerance 5. edema BLE Impairments are contributing to the following functional limitations: 1. Inability to safely ambulate without assistive device 2. Increase completion time for mobility ADL performance 3. Increased fall risk 4. impaired ability to perform stairs Patient is assessed as a moderate complexity based on the following: History: 78-year-old male with impairment level findings, functional limitations, and past medical history as indicated above Examination: Demonstrable impairment in strength, balance, and mobility level with underlying impairments and functional limitations as documented above Presentation: evolving Decision Making: moderate Goals: 1. modified independent transfers with 4WW 2. modified independent ambulation with 4ww 150 feet 3. supervision 1 steps with 4ww to enter home Plan of Care/Treatment Plan: 1-2x/day, 7 days/week x 1 week. Plan of care has been reviewed with the DRYING MACHINE OPERATOR PACKAGE YARNS providing the service under Physical Therapy direction. Initiate Physical Therapy intervention for strengthening, bed mobility, transfers, gait, stairs, balance training, use of assistive device. DISCHARGE RECOMMENDATIONS: SNF vs HHPT however pt is not accepting TREATMENT CODE/TIME: 80888,[id number]/ 1:00pm-1:36pm Thank you for the opportunity to participate in the care of this patient. [facility]
--- NOTE | 2024-06-28 15:22 | PGE_ITS ---
Date of Service Date of service: 06/28/24 Time of Service: 15:22 Assessment and Plan Assessment and plan (1) Delusions: Start date: 06/27/24 Status: Acute Assessment and plan: - After discussion with patient's family that his been determined that delusions as well as hallucinations are not new -Patient has a history of a delusional disorder for which he refuses psychiatric care or medications -Additionally, patient's [id number] (who is on patient's HIPAA), states that the patient began to have hallucinations a few months ago and that they have become worse and more frequent -Patient has psych consult, and will attempt to have patient accepted to [facility] -However, given the patient is not suicidal or homicidal, and does not require active medical inpatient therapy, he is allowed to leave if he decides to go AGAINST MEDICAL ADVICE -Additionally, as documented by urologist Dr. 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 Wallis on 06/28/2024 (please see his note for further details). (3) BPH (benign prostatic hyperplasia): Status: Chronic Assessment and plan: Causing bladder outlet obstruction we will see documentation as noted above (4) Edema of both lower legs due to peripheral venous insufficiency: Status: Chronic Assessment and plan: Wound care consultation Subjective Subjective Interval history since last seen: Patient remains highly delusional. Multiple discussions were had with nursing staff and patient's family who have all confirmed that patient's mental status including his delusions and hallucinations have been progressively worsening over time and are not acutely worse or new. Upon speaking with the patient he was adamant that he needed to go figure out transportation for where he needs to go for Dr. Wallis. And that I may need to secure a flight or other transport for the next step). Patient was adamant that additional planning needed to be necessary as per Dr. Wallis, and was resistant to accepting that I had been in contact with Dr. Wallis that patient's preconceived notions were untrue. When he was explained to the patient that if he were to leave the MedSur unit he would be considered leaving AGAINST MEDICAL ADVICE and would no longer be a hospitalized patient he agreed to stay. Exam Narrative Exam Narrative: Well-appearing older gentleman sitting up holding his walker in no acute distress, awake, alert, oriented to person and place but highly delusional, heart regular rhythm, lungs good auscultation bilaterally, abdomen soft, nontender, nondistended, did not endorse any active visual hallucinations at this time Objective Last Vital Signs Temp 98.4 F 06/28/24 11:03 Pulse 67 06/28/24 11:03 Resp 16 06/28/24 11:03 BP 108/59 L 06/28/24 11:03 Pulse Ox 96 06/28/24 11:03 Laboratory Results - last 24 hr 06/27/24 06/27/24 06/27/24 16:45 17:00 21:40 WBC 6.62 RBC 3.56 L Hgb 10.3 L Hct 31.6 L MCV 89 MCH 28.9 MCHC 32.6 RDW 17.7 H Plt Count 278 MPV 10.2 Immature Gran % 0.3 Neutrophils % 61.8 Lymphocytes % 20.5 Monocytes % 10.4 Eosinophils % 6.2 Basophils % 0.8 Nucleated RBC % 0.0 Absolute Neutrophils 4.09 Absolute Lymphocytes 1.36 Absolute Monocytes 0.69 Absolute Eosinophils 0.41 Absolute Basophils 0.05 Sodium 141 Potassium 3.9 Chloride 102 Carbon Dioxide 28.3 Anion Gap 10.7 BUN 31 H Creatinine 1.1 Est GFR (CKD-EPI 2020) 69.14 Glucose 100 Calcium 10.1 Urine Color Yellow Urine Clarity Clear Urine pH 6.0 Ur Specific [place] 1.020 Urine Protein >=300 H Urine Ketones 15 H Urine Blood Moderate H Urine Nitrite Positive H Urine Bilirubin Negative Urine Urobilinogen 0.2 Ur Leukocyte Esterase Small H Urine RBC 10-20 H Urine WBC 10-20 H Ur Epithelial Cells Moderate Urine Crystals Negative Urine Bacteria Few Urine Casts Negative Urine Mucus Negative Ur Culture Indicated? No/Sq. Contamination Urine Glucose Negative COVID-19 Source Nasopharynx SARS-CoV-2 (PCR) Negative Influenza Type A (PCR) Negative Influenza Type B (PCR) Negative RSV (PCR) Negative Time Spent with Patient Time Spent with Patient: >50 minutes Time was spent: preparing to see the patient(eg.review tests), obtaining and/or reviewing separately otained hiistory, ordering medications,tests, procedures, referring, communicating with other health special needs child caregiver, indepentently interpreting results, counseling the patient and care coordination
[2024-06-28 15:35] VITALS: BP 129/60; PULSE 66; RESP 12; TEMP 37.2; O2SAT 97
--- NOTE | 2024-06-28 15:38 | NUR.NOTE ---
Nursing Note: Telemetry D/C per provider Dr. Sanchez as patient refused to keep it on for continuous montioring. RAFAL RN
--- NOTE | 2024-06-28 18:31 | NUR.NOTE ---
Nursing Note: PT requested to be discharged home via RCT on 06/29/[address] is home in time for when his home health surgical dental assistant is there. They visit M,W,F from [phone], RN spoke with MD and notified case management of patients request. RN told patient a d/c that early may not be able to happen due to time it takes to set up RCT and current time at night. PT agreeable to continue to stay overnight at this time. Pt sitting in chair will all belongings packed contiuously trying to call the crisis help line number to arrange ride home for tomorrow despite RN and patient having multiple conversations regarding transportation and the use of the crisis phone number. Pt continues to not comprehend the conversations. RAFAL [place]
[2024-06-28 19:41] VITALS: BP 111/66; PULSE 68; RESP 20; TEMP 37.4; O2SAT 97
[2024-06-28] MEDS: Cefpodoxime 200 MG TAB PO (20:09)
[2024-06-29 06:23] LABS: HCT 26.6 % (40.0-50.0); MCH 29.8 pg (27.0-33.0); MCHC 33.8 % (32.0-36.0); MCV 88 fL (80-95); MPV 10.2 fL (8.0-11.0); Platelet Count 220 10^3/uL (130-400); RBC 3.02 10^6/uL (4.36-5.78); RDW 17.6 % (11.8-14.1); RDW-SD 56.6 fL; WBC 6.48 10^3/uL (4.4-10.8)
[2024-06-29 06:41] LABS: ALT 17 U/L (16-63); AST 16 U/L (15-37); Albumin 3.1 g/dL (3.4-5.0); Alkaline Phosphatase 68 U/L (46-116); Anion Gap 9.6 mmol/L (3-11); BUN 33 mg/dL (7-18); Bilirubin, Total 0.7 mg/dL (0.2-1.0); CO2 26.4 mmol/L (21.0-32.0); CREATININE 1.1 mg/dL (0.70-1.30); Calcium 8.9 mg/dL (8.5-10.1); Chloride 105 mmol/L (98-107); Estimated GFR 69.14 (mL/min/1.73m2); Glucose 100 mg/dL (74-106); Magnesium 1.9 mg/dL; Potassium 4.2 mmol/L (3.5-5.1); Sodium 141 mmol/L (136-145); Total Protein 7.1 g/dL (6.4-8.2)
[2024-06-29 07:35] VITALS: BP 111/58; PULSE 60; TEMP 37.2; O2SAT 97
--- NOTE | 2024-06-29 07:51 | PDOC.HHF2F ---
Home Health Referral Home Health Orders Clinical synopsis of why skilled professionals are needed: Delusional disorder with hallucinations, chronic suprapubic cath, bilateral lower extremity edema, BPH Registered Nurse: Check all that apply Instruct on new or changed medication(s)/assess compliance: Ordered Instruct on, and maintenance of, urinary device: Ordered Assess for exacerbation of medical condition, instruct patient/caregivers on signs and symptoms to report for early detection: Ordered Other: Bulb suction surgical drain management Physical Therapist: Check all that apply Increase strength & endurance for safe mobility at home: Ordered To design/establish home maintenance program: Ordered Fall reduction therapy program for patient with history of frequent falls: Ordered Home safety evaluation and teaching/gait training including stair management (if applicable): Ordered Occupational Therapist: Evaluate and treat for patient unable to perform ADL/IADL/self-care: Ordered Candy Starch Mold Printer: Assist with community resources: Ordered Assist with [facility] care planning: Ordered Home Bound Status Requires the aid of supportive device (check all that apply): Walker Encounter Date and Reason: I certify that a FTF encounter for this patient was performed on June 29, 2024 and that such encounter was related to the primary reason the patient requires home health services. The encounter was conducted in the following manner: By me as the certifying physician, DIAMOND CLEANER, PA or By an inpatient physician, DIAMOND CLEANER or PA during an inpatient stay who communicated findings to me, Certification And Authentication I certify that I composed the above information based on my clinical judgment relating to this patient's medical condition and, if applicable, clinical findings communicated to me by the NPP or inpatient physician who performed the FTF encounter. Name of Provider that will be monitoring home health services: ALEX DÍAZ
--- NOTE | 2024-06-29 07:52 | DSE_ITS ---
Date of service: 06/29/24 Time of Service: 07:52 DS: Diagnosis Discharge Diagnosis (1) Delusions: Status: Acute (2) Urinary retention: (3) BPH (benign prostatic hyperplasia): Status: Chronic (4) Edema of both lower legs due to peripheral venous insufficiency: Status: Chronic Discharge Plan Disposition Patient Disposition: Home W/Home Health Services Condition: Good Discharge Details Reason For Visit: Delusions, Complicated UTI with chronic suprapubic Admit Date/Time: 06/27/24 20:29 Admit Provider: Tee Gabriel Attending Provider: Tee Gabriel Primary Care Provider: ALEX DÍAZ Hospital Course Hospital Course: Patient initially presented to the hospital after calling 911 multiple times for hallucinations of seeing small dark purple aliens which she believes are real. Initial thought in the emergency department is that patient had urinary tract infection leading to encephalopathy. However, after brief discussion with patient's [id number]-[id number] (who is on his HIPAA paperwork), as well as with urologist Dr. Wallis who the patient sees over the last 3 years, patient's mental status has been slowly declining, and patient's [id number] stating that he has been experiencing hallucinations and increased frequency over the last few months. It was also confirmed by Dr. Wallis the patient is a chronic colonizer and did not in fact have an acute urinary tract infection. However, Dr. Wallis graciously changed patient's suprapubic cath during hospitalization. Ultimately, given the patient did not have a medical reason to remain hospitalized, and was not expressing suicidal or homicidal ideation, it was determined that he was stable for discharge home with continued home health services through the [facility]. Home Meds and New Rx's Prescriptions: Discontinued nitrofurantoin monohyd/m-cryst [Macrobid] 100 mg capsule 100 mg PO Q12H 7 Days Qty: 14 0RF Rx Instructions: must administer with a meal/food Discharge Instructions Activity:: Activity as Tolerated Equipment/Supplies:: No Equipment Needed Diet:: As Tolerated Discharge Orders Discharge Orders: Discharge Order (Routine); Ordered 06/29/24 Ordered By: Doroteo Sanchez DS: Summary Time Spent with Patient providing and/or coordinating discharge services: Greater than 30 minutes Status at Discharge Functional status at discharge: independent ambulation Overall status at discharge: patient is back to baseline Mental Status: mental status grossly normal Speech and Movement: speech and movement normal Mood: congruent mood Affect: normal affect Quality:SDOH Health Related Social Needs: Health related social needs housing instability, house d, with risk of homelessness (Z59.811), food insecurity (Z59.41), transportation insecurity (Z59.82), material hardship(utilities) (Z59.12), problems related to housing/economic circumstances (Z59.89), problems with daily activities (Z73.9), feeling lonely/isolated (Z60.8) Exam Narrative Exam Narrative: Well-appearing older gentleman sitting up holding his walker in no acute distress, awake, alert, oriented to person and place but highly delusional, heart regular rhythm, lungs good auscultation bilaterally, abdomen soft, nontender, nondistended, significant bilateral lower extremity edema appearing chronic secondary to venous stasis, did not endorse any active visual hallucinations at this time Psych Mental Status: mental status grossly normal Speech and Movement: speech and movement normal Mood: congruent mood Affect: normal affect DS: Data Vitals/I&O Vitals and I&O: Vital Signs Temperature 99.0 F 06/29/24 07:35 Temperature Source Temporal Artery Scan 06/28/24 19:41 Pulse 60 06/29/24 07:35 Pulse Rhythm Regular 06/27/24 23:16 Pulse 92 H 06/27/24 19:30 Respiratory Rate 20 06/28/24 19:41 Respiratory Effort Normal 06/27/24 23:16 Respiratory Depth Normal 06/27/24 23:16 Respiratory Pattern Normal 06/27/24 23:16 Blood Pressure 111/58 L 06/29/24 07:35 Blood Pressure Mean 88 06/27/24 22:01 Blood Pressure Position Sitting 06/27/24 15:40 Pulse Oximetry 97 06/29/24 07:35 Oxygen Delivery Method Room Air 06/29/24 07:35 Oxygen Flow Rate 0 06/29/24 07:35 Pain Level 1 06/29/24 07:35 Comment pt did not want bp taken 06/28/24 03:02 Intake & Output 06/28/24 06/29/24 06/29/24 17:59 05:59 17:59 Output Total 725 / 725 Balance -725 / -725 Weight 175 lb 7.807 oz Output: Urine 725 / 725 Other: Urine Color Light Olinda Urine Appearance Clear Urine Odor Normal Normal Comment Patient emptied his own suprapubic. Unmeasured volume suprapubic cath in place- capped. Stool Size Large Stool Characteristics Hard Data Completed and Pending Labs on day of discharge: Labs from last 24 hours 06/29/24 06/28/24 05:38 05:35 WBC 6.48 Cancelled RBC 3.02 L Cancelled Hgb 9.0 L Cancelled Hct 26.6 L Cancelled MCV 88 Cancelled MCH 29.8 Cancelled MCHC 33.8 Cancelled RDW 17.6 H Cancelled Plt Count 220 Cancelled MPV 10.2 Cancelled Sodium 141 Cancelled Potassium 4.2 Cancelled Chloride 105 Cancelled Carbon Dioxide 26.4 Cancelled Anion Gap 9.6 Cancelled BUN 33 H Cancelled Creatinine 1.1 Cancelled Est GFR (CKD-EPI 2020) 69.14 Cancelled Glucose 100 Cancelled Calcium 8.9 Cancelled Magnesium 1.9 Cancelled Total Bilirubin 0.7 Cancelled AST 16 Cancelled ALT 17 Cancelled Alkaline Phosphatase 68 Cancelled Total Protein 7.1 Cancelled Albumin 3.1 L Cancelled Preliminary micro results at discharge 06/27/24 17:00 Blood Culture - Preliminary Blood NO GROWTH 24 HOURS 06/27/24 16:45 Blood Culture - Preliminary Blood NO GROWTH 24 HOURS 06/27/24 17:00 Urine Culture - Preliminary Urine - Subrapubic Gram negative [place] PFSH All Active Problems (Updated 06/28/24 @ 01:58 by Tee Gabriel) Edema of both lower legs due to peripheral venous insufficiency (Chronic) Delusions (Acute) Hallucinations (Acute) Acute UTI (Acute) Tinea cruris (Acute) Bacteremia, escherichia coli (Acute) Bilateral lower extremity edema (Acute) Complicated UTI (urinary tract infection) (Acute) Sepsis (Acute) Acute UTI (Acute) Bandemia (Acute) Prostatic hypertrophy (Chronic) Mass of urinary bladder determined by ultrasound (Acute) Urinary retention with incomplete bladder emptying (Acute) Urinary retention due to benign prostatic hyperplasia (Acute) BPH (benign prostatic hyperplasia) (Chronic) Essential hypertension (Acute) Rectal/anal hemorrhage (Acute) Skin lesion (Acute) Gastric polyp (Acute) Normal colonoscopy (Acute) Mass of left upper extremity ([facility] 2inch diameter fungating bleeding mass upper left extremity. Bacteremia (Acute) Post surgical complication (Acute) Unilateral inguinal hernia without obstruction or gangrene (Acute) Basal cell carcinoma of upper extremity (Acute) Medical History Hypertension DVT (deep venous thrombosis) Septic arthritis Seborrheic dermatitis Urinary retention Problem related to housing and economic circumstances Hyperlipidemia Elevated PSA Osteoarthritis, hip, bilateral Surgical History History of esophagogastroduodenoscopy (EGD) (~09/2021) History of colonoscopy (~09/2021) Unilateral inguinal hernia with mesh per pt. Right side per patient Social History Smoking/Tobacco Use Status: Never Smoking risk assessment performed?: Yes Alcohol Intake: current Alcohol Intake frequency: holidays/special occasions only Alcohol type: wine Drug use: Never Substance use type: does not use Housing: house Current gender identity: male Do you feel safe at home: Yes Do you feel safe in your relationship?: Yes Additional Social history: lives alone Time Spent with Patient Time Spent with Patient: <45 minutes Time was spent: preparing to see the patient(eg.review tests), obtaining and/or reviewing separately otained hiistory, ordering medications,tests, procedures, referring, communicating with other health managed care coordinator, indepentently interpreting results, counseling the patient and care coordination
--- NOTE | 2024-06-29 08:50 | PDOC.CMDIS ---
Date of service: 06/29/24 Time of Service: 08:50 LACE Index Scoring Tool Questions: Length of Stay (in days): 2 Was the patient admitted via the E.D.?: Yes Comorbidities: Any Tumor E.D. Visits: 1 Answers: Total Score: 8 Risk of Readmission: Low Risk Care Management Discharge Plan Reason for Hospitalization: Delusions, Complicated UTI with chronic suprapubic Discharge Plan: Thong will discharge home with new RN/PT/OT/ENCYCLOPEDIA RESEARCH WORKER. He is transported via RCT wheelchair van. Thong will follow up with community providers and discharge plan of care. Follow-up with Dr Wallis to be scheduled in 07/26/24. He was insistent on going home today, and did not present any imminent risk to himself or others; MD medically cleared him for discharge. He has caregiver support through the [facility] three times a week, which resumed today. He was happy to be going home. Patient/Family Education Needs: Review discharge instructions, discuss Ask Me Three Services Needed at Discharge: Home Health Care Services (PT/OT/RN/ENCYCLOPEDIA RESEARCH WORKER), Occupational Therapy and Physical Therapy SDOH Health Related Social Needs: Health related social needs housing instability, housed, with risk of homelessness (Z59.811), food insecurity (Z59.41), transportation insecurity (Z59.82), material hardship(utilities) (Z59.12), problems related to housing/economic circumstances (Z59.89), problems with daily activities (Z73.9), feeling lonely/isolated (Z60.8)
--- NOTE | 2024-06-29 09:22 | PT.INTREAT ---
PT Notes Visit Reasons: Delusions, Complicated UTI with chronic suprapubic Inpatient Physical Therapy Treatment Note [facility] Date: 06/29/2024 PRECAUTIONS:fall risk SUBJECTIVE: Pt reports he is going home today soon. He states he woke this morning and felt better clearer and wanting to go home. OBJECTIVE: Pt without delusions today. very clear.non tangential with conversation and able to attend to task.?RLE with increased edema as compared to evaluation. ? PAIN: RLE it is sore but it will be fine once I am home. Therapeutic Activities ([id number][]): Direct one-on-one instruction in dynamic activities to improve functional performance. ?? Provided skilled cues and instruction on performance and technique throughout. ? BED MOBILITY/TRANSFERS? Rolling L/R: independent Supine-sit: independent? Sit-stand: independent? Stand-sit: independent ? Bed-Chair: Supervision with 4WW ? Chair-chair: Supervision with 4WW Ambulation: Facilitated safe and correct performance of level surface ambulation covering a distance of 50 feet using use 4 wheeled walker/rollator with SBA. Did not report of any increased pain. Denied headache, chest pain, and lightheadedness throughout activity. Minimal verbal cueing provided for AD management, directional changes, and posture. -deviations: excessive WB through BUE to advance BLE , adducted LEs with impaired hip and knee flexion. short step length BLE. ASSESSMENT:? Pt demonstrating improved stability with ambulation and transfers. He continues to rely heavily on UE to advance LE for ambulation with 4WW. Pt also continues to brace with BLE against chair/ bed for sit to stand. Stand to sit pt with reduced hip and knee flexion . Pt with 3+ pitting edema RLE limits ROM significantly at knee and ankle. pt being transported home via chair van. PLAN:anticipate discharge to home after treatment. TREATMENT CODE/TIME: 43130/ [id number] DISCHARGE RECOMMENDATION: Home with HH PT
== END 2024-06-29 08:37 | disposition home health service (06) | DRG 885 ==
LOC: ER 19:23 → MS 22:16
PROVIDERS: Emergency Medicine; Student in an Organized Health Care Education/Training Program; Admitting Provider Family Medicine; Emergency Provider Emergency Medicine; PCP Nurse Practitioner; Responsible Provider Family Medicine; Visit Provider Family Medicine
DX: F22 Delusional disorders (principal); N13.8 Other obstructive and reflux uropathy; Z59.811 Housing instability, housed, with risk of homelessness; Z59.12 Inadequate housing utilities; N40.1 Benign prostatic hyperplasia with lower urinary tract symptoms; R60.0 Localized edema; B96.20 Unspecified Escherichia coli [E. coli] as the cause of diseases classified elsewhere; I10 Essential (primary) hypertension; Z86.718 Personal history of other venous thrombosis and embolism; E78.5 Hyperlipidemia, unspecified; M16.0 Bilateral primary osteoarthritis of hip; N32.89 Other specified disorders of bladder; Z22.359 Carrier of Enterobacterales, unspecified; Z59.41 Food insecurity; Z59.82 Transportation insecurity; Z73.9 Problem related to life management difficulty, unspecified; Z60.8 Other problems related to social environment
CPT/HCPCS: 51705; 00123; 36415; 80048; 80053; 85027; 87040; 87077; 87637; 96360; 97162; 97530; 99285; J1650; 81003; 81015; 83735; 85025; 87086; 87186; 99222; 99233; 99239; J0696